=== PATIENT | female | born 1980 | race Caucasian/White ===

== ENCOUNTER 2020-11-21 13:25 | Outpatient (CLI) | payer OTHER, SELFPAY ==
[2020-11-21 14:00] LABS: Hematocrit 34.7 % (37.0-47.0); Mean Corpuscular HGB Conc 34.6 g/dl (32-36); Mean Corpuscular Volume 86.8 fl (80-100); Mean Platelet Volume 9.4 fl (7.4-10.4); Platelet Count Result 161 k/mm3 (150-375); Red Cell Distribution Width 13.8 % (11.5-14.5); White Blood Count 4.3 K/mm3 (4.5-10.0)
== END 2020-11-21 13:26 | disposition home or self-care (01) ==
PROVIDERS: PCP Obstetrics & Gynecology; Visit Provider Obstetrics & Gynecology
DX: Z13.0 Encounter for screening for diseases of the blood and blood-forming organs and certain disorders involving the immune mechanism (principal)
CPT/HCPCS: 36415; 85027

== ENCOUNTER 2020-12-19 16:34 | Inpatient (IN) | payer MEDICAID, OTHER, SELFPAY ==
--- NOTE | ~2020-12-19 | XR_ITS ---
EXAMINATION: XR retrograde pyelo w/stent RT EXAM DATE: 12/20/2020 12:43 INDICATION: Right-sided obstructive nephropathy. TECHNIQUE: Fluoroscopy used during XR retrograde pyelo w/stent RT performed by Dr. Narciso Rudolph MD. The DAP for this procedure was 774 radcm2 Cine run(s) available for review. FINDINGS: The right ureter was cannulated and injected. There is tortuosity to the mid aspect of the a right-sided double-J ureteral stent was able to be placed. There is moderate right-sided hydrouret eronephrosis. Correlate with procedure note. IMPRESSION: Moderate right hydroureteronephrosis. Stent in position. Reviewed, dictated and finalized at location B. [employer]
--- NOTE | ~2020-12-19 | CT_ITS ---
EXAMINATION: CT abdomen pelvis w con DATE: 12/19/2020 19:57 INDICATION: Fever. Post surgery. TECHNIQUE: Computed tomography (CT) of the abdomen and pelvis was performed with 100 cc Omnipaque 350 intravenous contrast. The dose-length product was 614.58 mGy-cm. Automated exposure control and iter ative reconstruction technique were employed. COMPARISON: No prior studies for comparison. . FINDINGS: There is a complex walled off fluid collection in the pelvis tracking over the bladder. Thi s fluid collection has irregular margins measuring up to 12.2 x 7.9 x 6.9 cm, consistent with abscess . There is a contiguous area of abscess along the medial aspect of the left psoas margin. The bladder wall is thickened with a urachal remnant. There is fluid/stranding in the paracolic gutters and mese ntery. Bibasilar dependent atelectasis. Heart size normal. Small pleural effusions. The liver, spleen, pancreas, adrenal glands and left kidney are unremarkable. There is moderate right hydroureteronephrosis. The right ureter disappears within phlegmonous soft tissue of the right pelvi s, likely acting as a source of obstruction. There are mildly enlarged retroperitoneal lymph nodes, l ikely reactive. No acute osseous abnormality. IMPRESSION: 1. Complex walled off fluid/gas collection centered in the pelvis measuring up to 12.2 x 7.9 x 6.9 cm , consistent with abscess. 2: Moderate right hydroureteronephrosis with abrupt termination of the ureter in the pelvis contiguou s with phlegmonous change/abscess which is the likely source of obstruction. 3: Mild retroperitoneal lymphadenopathy, likely reactive. 4: Small pleural effusions. Reviewed, dictated and finalized at location A. AUTOMATION ARCHITECT IMPRESSION: 1. Complex walled off fluid/gas collection centered in the pelvis measuring up to 12.2 x 7.9 x 6.9 cm, consistent with abscess. 2: Moderate right hydroureteronephrosis with abrupt termination of the ureter i n the pelvis contiguous with phlegmonous change/abscess which is the likely skylar rce of obstruction. 3: Mild retroperitoneal lymphadenopathy, likely reactive. 4: Small pleural effusions.
--- NOTE | ~2020-12-19 | CT_ITS ---
EXAMINATION: CT guide absc cath placement DATE: 12/20/2020 15:17 INDICATION: Pelvic abscess. TECHNIQUE: The procedure including the risks, benefits, and alternatives was discussed with the patie nt. Risks discussed included bleeding and infection. The patient understood the risks and benefits an d agreed to proceed. The skin overlying the abdomen was prepped and draped in usual sterile fashion. Anesthetic was administered with 1% lidocaine subcutaneously. An 18 gauge trochar needle was inserte d into the pelvic abscess with CT guidance. The needle was exchanged over a wire for 6 Barbadian, 8 Fren ch, and 9 Barbadian dilators and then for an 8.5 Barbadian pigtail catheter. The catheter was stitched to t he skin, and a sterile dressing was applied. The mA was adjusted according to patient size. Iterative reconstruction technique was employed. The dose-length product was 344.90 mGy-cm. There were no imme diate complications. FINDINGS: CT images demonstrate the catheter within the fluid collection. 15 mL fluid was aspirated f or testing. IMPRESSION: 1. Successful CT-guided pelvic abscess drainage. 2. 15 mL opaque, dark-brown fluid was sent for aerobic and anaerobic cultures. Reviewed, dictated and finalized at location A. [employer]
[2020-12-19 16:43] VITALS: BP 123/89; PULSE 138; RESP 19; TEMP 38.6; O2SAT 100
[2020-12-19 17:58] LABS: Basophils Absolute Auto 0.1 K/mm3 (0.0-0.1); Basophils Percent Auto 0.4 % (0.2-1.2); Eosinophils Percent Auto 0.1 % (0-4.4); Hematocrit 34.2 % (37.0-47.0); Hemoglobin 11.8 g/dL (12.0-15.0); Immature Granulocyte Absolute 0.13 K/mm3 (0.00-0.031); Lymphocytes Absolute Auto 0.92 K/mm3 (0.9-3.2); Lymphocytes Percent Auto 6.8 % (18.3-44.2); Mean Corpuscular HGB Conc 34.5 g/dl (32-36); Mean Corpuscular Hemoglobin 29.6 pg (26-34); Mean Corpuscular Volume 85.7 fl (80-100); Mean Platelet Volume 9.6 fl (7.4-10.4); Monocytes Absolute Auto 0.6 K/mm3 (0.1-0.6); Monocytes Percent Auto 4.6 % (2.6-8.5); Neutrophils Absolute Auto 11.8 K/mm3 (1.3-6.7); Neutrophils Percent Auto 87.1 % (45.5-73.1); Platelet Count Result 251 k/mm3 (150-375); Red Blood Count 3.99 M/mm3 (4.2-5.4); Red Cell Distribution Width 12.9 % (11.5-14.5); White Blood Count 13.5 K/mm3 (4.5-10.0)
[2020-12-19 18:12] LABS: Alanine Aminotransferase 9 U/L (4-35); Albumin Level 3.6 g/dL (3.5-5.1); Alkaline Phosphatase 93 U/L (38-126); Anion Gap 6 mmol/L (8-16); Aspartate Amino Transferase 16 U/L (14-36); Bilirubin,Total 0.4 mg/dL (0.2-1.3); Blood Urea Nitrogen 6 mg/dL (7-17); Calcium 8.6 mg/dL (8.4-10.2); Carbon Dioxide 28 mmol/L (22-30); Chloride 98 mmol/L (98-107); Estimated CRCL calculation 104 ml/min; Estimated Glomerular Filt Rate > 60; Glucose 118 mg/dL (65-105); Potassium 3.5 mmol/L (3.4-5.0); Sodium 132 mmol/L (137-145)
--- NOTE | 2020-12-19 18:41 | ED.FEVER ---
HPI - Fever General Chief Complaint: Fever <Abimael Ha PA-C - Last Filed: 12/27/20 19:34> Stated Complaint: hysterectomy Dec 11, fever, pain <Abimael Ha PA-C - Last Filed: 12/27/20 19:34> Time Seen by Provider: 12/19/20 16:58 <KENDELL Escobar Last Filed: 12/27/20 19:34> Source: patient <KENDELL Escobar Last Filed: 12/27/20 19:34> Mode of arrival: ambulatory <KENDELL Escobar Last Filed: 12/27/20 19:34> Limitations: no limitations <KENDELL Escobar Last Filed: 12/27/20 19:34> History of Present Illness HPI Narrative: Patient presents with chief complaint of pain, increased fever and discomfort that has continued to increase since having a partial hysterectomy on December 11. Patient states that the procedure was performed by Dr. Doan [facility] at [facility]. Patient states that the uterus was removed and the ovaries were left in place. Patient reports feeling a pressure-like sensation in her lower abdomen and vaginal area. She states that she felt as if she was constipated so she called the BUTTON PUNCHER's office and was instructed to use a fleets enema which resulted in a very small amount of loose stool passing. Patient states throughout the night she noticed more pressure-like pain and in the night she felt a flush of foul-smelling pink and brown-tinged fluid released from her vagina. She states she called the [facility]TON P[facility] office this morning and was prescribed metronidazole and Augmentin. She states that she said they also want her to come into the office tomorrow for outpatient ultrasound after informing them of her increased fevers and discomfort she was instructed to present to the emergency department. Patient states that she had low-grade fevers of 100 after leaving the hospital but since they have continued to increase and have been as high as 102 ?F. She denies fever, chills, chest pain, shortness of breath, nausea or vomiting. <KENDELL Escobar Last Filed: 12/27/20 19:34> Related Data Home Medications: Home Medications Medication Instructions Recorded Confirmed oxycodone-acetaminophen 1 tablet PO Q6-8H PRN 12/19/20 12/19/20 <Abimael Ha PA-C - Last Filed: 12/27/20 19:34> Allergies/Adverse Reactions: Allergies Allergy/AdvReac Type Severity Reaction Status Date / Time No Known Allergies Allergy Verified 12/19/20 22:38 <Abimael Ha PA-C - Last Filed: 12/27/20 19:34> Review of Systems Review of Systems: Narrative: CONSTITUTIONAL: Reports fever and sweats EYES: Denies visual changes, redness, or discharge. ENT: Denies rhinorrhea, congestion, sore throat, or otalgia. CARDIOVASCULAR: Denies chest pain, palpitations, or edema. RESPIRATORY: Denies cough or dyspnea. GASTROINTESTINAL: Reports abdominal pressure and constipation denies nausea, vomiting, or diarrhea. GENITOURINARY: Reports pelvic pressure and fluid release denies dysuria or hematuria. SKIN: Denies rash or itching. MUSCULOSKELETAL: Denies back pain, joint pain, or myalgia. NEUROLOGIC: Denies headache, numbness, dizziness, or weakness. PSYCHIATRIC: Denies anxiety or depression. <Abimael Ha PA-C - Last Filed: 12/27/20 19:34> [facility] Past Medical History Medical History: Medical History Severe sepsis <Abimael Ha PA-C - Last Filed: 12/27/20 19:34> Surgical History Surgical History: Surgical History Status post hysterectomy <Abimael Ha PA-C - Last Filed: 12/27/20 19:34> Family History Family History: Family History Father Diabetes mellitus Congestive heart failure Mother Hypertension <Abimael Ha PA-C - Last Filed: 12/27/20 19:34> Social History Social History: Social History
[2020-12-19 19:27] VITALS: BP 89/63; PULSE 87; RESP 18; TEMP 37.2; O2SAT 99
[2020-12-19] MEDS: SODIUM CHLORIDE 0.9% IV 1,000 ML 999 ML IV CONT ×2 (19:43)
[2020-12-19] MEDS: metroNIDAZOLE 500 MG/ISO 100ML 500 MG/100 ML BAG 100 MG IVPB (19:46)
[2020-12-19 20:38] VITALS: BP 100/72; PULSE 91; RESP 14; O2SAT 100
[2020-12-19] MEDS: CLINDAMYCIN 900 MG/D5W 50 ML 900 MG/50 ML PIGGYBACK 50 MG IVPB (20:39)
[2020-12-19] MEDS: SODIUM CHLORIDE 0.9% IV 500 ML 999 ML IV CONT (20:47)
[2020-12-19 21:37] VITALS: BP 95/71; PULSE 90; RESP 14; O2SAT 100
--- NOTE | 2020-12-19 22:11 | PM.IMCN ---
Assessment and Plan Assessment and plan (1) Severe sepsis: Code(s): A41.9 - Sepsis, unspecified organism; R65.20 - Severe sepsis without septic shock Status: Acute Assessment and Plan: The patient has been admitted to the ELECTRONIC COURT RECORDER service. Source of sepsis appears to be post op pelvic abscess. Continue to monitor vital signs and urine output closely. Check reflex lactic acid. Continue IV antibiotics. Monitor acid-base status. Continue ELECTRONIC COURT RECORDER recommendations for pelvic abscess. (2) Pelvic abscess in female: Code(s): N73.9 - Female pelvic inflammatory disease, unspecified Status: Acute Assessment and Plan: Post op pelvic abscess. Continue IV antibiotics, IV fluids. Would highly recommend draining the patient's abscess as soon as possible for source control of sepsis. (3) S/P partial hysterectomy: Code(s): Z90.711 - Acquired absence of uterus with remaining cervical stump Status: Acute Assessment and Plan: Continue ELECTRONIC COURT RECORDER recommendations. (4) Hydroureteronephrosis: Code(s): N13.30 - Unspecified hydronephrosis Status: Acute Assessment and Plan: Would recommend Urology consultation. Monitor urine output and renal function. (5) Leukocytosis: Qualifiers: Leukocytosis type: unspecified Qualified Code(s): D72.829 - Elevated white blood cell count, unspecified Code(s): D72.829 - Elevated white blood cell count, unspecified Status: Acute Assessment and Plan: Secondary to severe sepsis and pelvic abscess. Monitor CBCd. Additional Plan Date of service was 12/19/2020 at 21:45 hrs HPI Data of Consult Consult date: 12/20/20 Requesting Physician: Richy Doan MD Primary Care Provider: Richy Doan MD Consult Narrative Narrative: Thank you for consulting us to see this 40 year old female who just underwent a partial hysterectomy on 12/11/2020 at [facility] by Dr. Doan and now presented to the ER with complaints of severe RLQ abdominal pain, fever, and diaphoresis. 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 She reports having constipation today and passing a foul smelling pink/brown tinged vaginal discharge. Her Tmax was 102 degrees F. She was evaluated in the ER tonight and found to be in severe sepsis. She was treated with 3 liters of NS IV bolus, Clindamycin, Ceftriaxone, and Metronidazole. Routine labs showed a leukocytosis of 13,[address] abd/pelvis revealed a complex walled off fluid/gas collection centered in the pelvis measuring up to 12.2 x 7.9 x 6.9 cm, consistent with abscess as well as a moderate right hydroureteronephrosis with abrupt termination of the ureter in the pelvis contiguous with phlegmonous change/abscess which is the likely source of obstruction. On my encounter with the patient tonight her main complaint is RLQ abdominal tenderness. The patient denies any chest pain, shortness of breath, cough, dysuria, rectal bleeding, LE swelling, or focal neurological deficits. Review of Systems Review of Systems: All systems reviewed & are unremarkable except as noted in HPI and below PMFSH Surgical History Surgical History S/P partial hysterectomy Family History Family History Father Diabetes mellitus Congestive heart failure Mother Hypertension Social History Social History Smoking status: Never smoker Second hand tobacco smoke exposure: No Alcohol intake: current Substance use: never Substance use type: does not use and opiates Other substance usage details: post op pain meds Gender identity (if verbalized by the patient): Female Spiritual care concerns: No Comments Past medical history is negative. Meds Home Medications and Allergies Home Medications Medication Instructions
[2020-12-19 22:36] VITALS: BP 104/74; PULSE 94; RESP 20; TEMP 36.4; O2SAT 100; BMI 30.9
[2020-12-19] MEDS: SODIUM CHLORIDE 0.9% IV 1,000 ML 125 ML IV CONT (22:36)
[2020-12-19 23:52] LABS: Add Urine Microscopic? YES; Appearance Urine Clear (Clear); Bilirubin Urine Negative (Negative); Blood Urine 2+ (Negative); Color Urine Straw (Yellow); Glucose Urine UA Negative (Negative); Ketones Urine Trace mg/dL (Negative); Leukocyte Esterase Ur 1+ LEU/UL (Negative); Nitrate Urine Negative (Negative); Protein Urine Negative (Negative); RBC Urine 0-2 /hpf (0-2); Squamous Epithelial Cell Urine Moderate /hpf (Few); Urobilinogen Urine Negative mg/dL (<2.0); WBC Urine 16-20 /hpf
[2020-12-19 23:54] LABS: Specific Grav Ur 1.034 (1.001-1.035)
[2020-12-20] VITALS (25 sets, daily range): BP systolic 98–139; BP diastolic 62–87; PULSE 88–116; RESP 12–22; TEMP 36.6–38.9; O2SAT 95–100
[2020-12-20] MEDS: metroNIDAZOLE 500 MG/ISO 100ML 500 MG/100 ML BAG 100 MG IVPB ×5 (00:01→23:30)
[2020-12-20] MEDS: ONDANSETRON INJ 4 MG/2 ML VIAL IV PUSH (00:17)
[2020-12-20] MEDS: HYDROmorphone HCL INJ (*CRX) 1 MG/ML SYR IV PUSH ×6 (01:45→20:08)
[2020-12-20] MEDS: CLINDAMYCIN 900 MG/D5W 50 ML 900 MG/50 ML PIGGYBACK 50 MG IVPB ×3 (04:37→20:08)
[2020-12-20] MEDS: SODIUM CHLORIDE 0.9% IV 1,000 ML 125 ML IV CONT ×3 (04:37→23:30)
--- NOTE | 2020-12-20 09:40 | WPDURCON ---
Assessment and Plan Assessment and plan (1) Hydroureteronephrosis: Code(s): N13.30 - Unspecified hydronephrosis Status: Acute Assessment and Plan: After discussion with Dr. Doan, Dr. Kingsley and Dr. Rudolph, the plan will be for the patient to have a Cystoscopy right ureteroscopy with stent placement, right retrograde pyelogram with Dr. Rudolph, then she will go to IR for pelvic abscess drainage and possible right nephrostomy tube placement if Dr. Rudolph is unable to get a stent in place. Obtain consent. Keep NPO. Continue IV antibiotics, tailor to culture results. (2) Pelvic abscess in female: Code(s): N73.9 - Female pelvic inflammatory disease, unspecified Status: Acute Urology Consult Note HPI Date Seen: 12/20/20 Requesting Physician: Richy Doan MD Primary Care Provider: Richy Doan MD Consult Narrative Narrative: Leslie Pope is a 40 year old female who presented to the ER yesterday with worsening abdominal pain, vomiting, nausea, fever >100, and vaginal malodorous drainage s/p a partial hysterectomy on 12/11/[address] Doan at [facility]. She notes feeling the urge to urinate and pressure, but not being able to very well. Her stream is weak, but she denies dysuria or hematuria. She had a catheter placed which is draining clear, yellow urine. She denies a urologic history otherwise. Initially she thought she was constipated, and used an enema which resulted in a small amount of stool after a BM. She is tachycardic, febrile, WBC is 13.5, creatinine 0.70, UA is suggestive of a UTI, urine and blood cultures are pending. CT scan abdomen/pelvis shows complex walled off fluid/gas collection centered in the pelvis, consistent with abscess, as well as moderate Right Hydronephrosis with abrupt termination of the ureter in the pelvis contiguous with phlegmonous change, possible abscess is the source of obstruction. Review of Systems Cardiovascular: Cardiovascular: Denies chest pain Respiratory: Respiratory: Reports no additional respiratory complaints Gastrointestinal: Gastrointestinal: Reports abdominal pain, Reports constipation, Reports nausea and Reports vomiting Genitourinary: Genitourinary: Denies hematuria, Reports nocturia, Denies dysuria, Reports pelvic pain, Reports flank pain, Reports urinary urgency, Reports vaginal discharge and Reports vaginal odor PMFSH Surgical History Surgical History S/P partial hysterectomy Family History Family History Father Diabetes mellitus Congestive heart failure Mother Hypertension Social History Social History Smoking status: Never smoker Second hand tobacco smoke exposure: No Alcohol intake: current Substance use: never Substance use type: does not use and opiates Other substance usage details: post op pain meds Gender identity (if verbalized by the patient): Female Spiritual care concerns: No Meds Home Medications and Allergies Home Medications Medication Instructions Recorded Confirmed Type amoxicillin-pot clavulanate 875 mg PO Q12-24H 12/19/20 12/19/20 History ibuprofen 600 mg PO Q8-12H 12/19/20 12/19/20 History metronidazole 500 mg PO BID 12/19/20 12/19/20 History oxycodone-acetaminophen 1 tablet PO Q6-8H PRN 12/19/20 12/19/20 History Allergies Allergy/AdvReac Type Severity Reaction Status Date / Time No Known Allergies Allergy Verified 12/19/20 22:38 Vital Signs Vital Signs - 24 hr 12/19/20 16:43 12/19/20 19:27 12/19/20 20:38 Temperature 101.4 F H 98.9 F Pulse Rate 138 H 87 91 Respiratory Rate 19 18 14 Blood Pressure 123/89 89/63 L 100/72 Pulse Oximetry 100 99 100 12/19/20 21:37 12/19/20 22:36 12/20/20 00:00 Temperature 97.6 F 98.3 F Pulse Rate 90 94 100 Respiratory Rate 14 20
[2020-12-20 10:07] LABS: INR 1.1; Prothrombin Time 15.2 Seconds (11.1-14.7)
--- NOTE | 2020-12-20 11:05 | PC.NURSE ---
To OR per stretcher. Report given to RICHARD Lemus @ 1100. Flagyl sent with patient to OR
[2020-12-20] MEDS: LACTATED RINGERS 1,000 ML 30 ML IV CONT ×3 (11:20→13:52)
--- NOTE | 2020-12-20 11:24 | PM.IMPN ---
Progress Note: A&P Assessment and Plan (1) Severe sepsis: Code(s): A41.9 - Sepsis, unspecified organism; R65.20 - Severe sepsis without septic shock Status: Acute Assessment and Plan: Secondary to abscess -plan for CT-guided drain today -continue clindamycin and Flagyl -await microbiology -lactic acid normal on admission -white blood cell count 13.5 and patient is still running fevers at this time -sinus tachycardia on telemetry, continue to monitor (2) Pelvic abscess in female: Code(s): N73.9 - Female pelvic inflammatory disease, unspecified Status: Acute Assessment and Plan: Post op pelvic abscess -continue treatment as above -deicer element winder machine consulted and I spoke with him directly (3) Hydroureteronephrosis: Code(s): N13.30 - Unspecified hydronephrosis Status: Acute Assessment and Plan: Due to pelvic abscess. Plan for cystoscopy and right ureteroscopy and stent placement today -on IV antibiotics as stated above (4) Leukocytosis: Qualifiers: Leukocytosis type: unspecified Qualified Code(s): D72.829 - Elevated white blood cell count, unspecified Code(s): D72.829 - Elevated white blood cell count, unspecified Status: Acute Assessment and Plan: Secondary to above (5) Status post hysterectomy: Code(s): Z90.710 - Acquired absence of both cervix and uterus Status: Acute Assessment and Plan: Patient had her surgery last and follows with (6) Thrombosis of ovarian vein: Code(s): I82.890 - Acute embolism and thrombosis of other specified veins Status: Acute Assessment and Plan: I spoke with the radiologist and deicer element winder machine about this finding -patient has no history of clotting disorder -will start heparin after both procedures today after speaking with Urology and radiologist -will need to go home on Eliquis or Xarelto, will be in contact with care coordination about pricing Time Spent With Patient Time with patient: 25 - 35 minutes Subjective Date/time seen: 12/20/20 11:24 Interval history: Pt is a 40-year-old female here for abdominal pain found to have a pelvic abscess and bilateral ovarian vein clots. Patient was seen today and states her abdominal pain comes and goes but the pain medicine does help. She has some nausea but no vomiting. She has not eaten. She has not had a bowel movement or passed much gas. She still feels bloated and tender. No chest pain, shortness of breath or leg swelling. We discussed the plan of care and her new diagnosis of ovarian vein clots. She has never had a blood clot before. Review of Systems Review of Systems: All systems reviewed & are unremarkable except as noted in HPI and below Exam Narrative: Exam Narrative: General: Well developed well nourished patient in NAD HEENT: normocephalic Neck: supple Neuro: Alert and oriented x4 CV: Slightly tachycardic on exam, no murmurs. Telemetry shows sinus tachycardia 102 Resp:CTA Abd: Soft, partially distended. Pain to palpation in all areas. Surgical wounds without erythema, discharge or dehiscence. Positive bowel sounds Extremities: No swelling, erythema, or pain to palpation. Objective Data Vital Signs Vital Signs: Vital Signs - 24 hr 12/19/20 16:43 12/19/20 19:27 12/19/20 20:38 Temperature 101.4 F H 98.9 F Pulse Rate 138 H 87 91 Respiratory Rate 19 18 14 Blood Pressure 123/89 89/63 L 100/72 Pulse Oximetry 100 99 100 12/19/20 21:37 12/19/20 22:36 12/20/20 00:00 Temperature 97.6 F 98.3 F Pulse Rate 90 94 100 Respiratory Rate 14 20 18 Blood Pressure 95/71 L 104/74 122/76 Pulse Oximetry 100 100 99 12/20/20 02:00 12/20/20 02:26 12/20/20 04:00 Temperature Pulse Rate 113 H 94 Respiratory Rate Blood Pressure 103/65 Pulse Oximetry 12/20/20 04:30 12/20/20 05:39 12/20/20 06:00 Temperature 98.2 F Pulse Rate 99 108 H Respiratory
--- NOTE | 2020-12-20 11:38 | WPDANESEPPF ---
Anes - Initial Pre Proc Eval Procedure: Operation Date: 12/20/20 11:00 Proposed Procedures p Cystoscopy, Right Retrograde Pyelogram, Right Stent Placement(Right) - Narciso Rudolph MD Date/Time: 12/20/20 11:38 Surgeon: Richy Doan MD Pre Op Diagnosis: vaginal abscess post surgical complication Patient Data Age: 40 Gender: F Height: 5 ft 7 in Weight: 88.8 kg Last Vital Signs Temp 100.8 F H 12/20/20 07:58 Pulse 115 H 12/20/20 11:09 Resp 18 12/20/20 07:58 BP 125/86 12/20/20 10:43 Pulse Ox 99 12/20/20 07:58 Allergies Allergy/AdvReac Type Severity Reaction Status Date / Time No Known Allergies Allergy Verified 12/19/20 22:38 Home Medications Medication Instructions Recorded Confirmed Type amoxicillin-pot clavulanate 875 mg PO Q12-24H 12/19/20 12/19/20 History ibuprofen 600 mg PO Q8-12H 12/19/20 12/19/20 History metronidazole 500 mg PO BID 12/19/20 12/19/20 History oxycodone-acetaminophen 1 tablet PO Q6-8H PRN 12/19/20 12/19/20 History Laboratory Tests 12/19/20 12/19/20 12/19/20 17:49 17:49 17:49 WBC 13.5 K/mm3 H K/mm3 (4.5-10.0) RBC 3.99 M/mm3 L M/mm3 (4.2-5.4) Hgb 11.8 g/dL L g/dL (12.0-15.0) Hct 34.2 % L % (37.0-47.0) MCV 85.7 fl fl (80-100) MCH 29.6 pg pg (26-34) MCHC 34.5 g/dl g/dl (32-36) RDW 12.9 % % (11.5-14.5) Plt Count 251 k/mm3 D k/mm3 (150-375) MPV 9.6 fl fl (7.4-10.4) Immature Gran % (Auto) 1.0 % H % (0-0.5) Neut % (Auto) 87.1 % H % (45.5-73.1) Lymph % (Auto) 6.8 % L % (18.3-44.2) [place] % (Auto) 4.6 % % (2.6-8.5) Eos % (Auto) 0.1 % % (0-4.4) Baso % (Auto) 0.4 % % (0.2-1.2) Lymph # (Auto) 0.92 K/mm3 K/mm3 (0.9-3.2) [place] # (Auto) 0.6 K/mm3 K/mm3 (0.1-0.6) Eos # (Auto) 0.0 K/mm3 K/mm3 (0-0.3) Baso # (Auto) 0.1 K/mm3 K/mm3 (0.0-0.1) Abs Immat Gran (auto) 0.13 K/mm3 H K/mm3 (0.00-0.031) Absolute Neuts (auto) 11.8 K/mm3 H K/mm3 (1.3-6.7) Absolute Nucleated RBC 0.0 K/mm3 K/mm3 (0.0-0.012) Nucleated RBC % 0.0 % % (0.0-0.2) PT INR APTT Sodium 132 mmol/L L mmol/L (137-145) Potassium 3.5 mmol/L mmol/L (3.4-5.0) Chloride 98 mmol/L mmol/L (98-107) Carbon Dioxide 28 mmol/L mmol/L (22-30) Anion Gap 6 mmol/L L mmol/L (8-16) BUN 6 mg/dL L mg/dL (7-17) Creatinine 0.70 mg/dL mg/dL (0.7-1.0) Estim Creat Clear Calc 104 ml/min ml/min Estimated GFR > 60 (59 - ) Glucose 118 mg/dL H mg/dL (65-105) Lactic Acid 1.0 mmol/L mmol/L (0.7-2.1) Calcium 8.6 mg/dL mg/dL (8.4-10.2) Total Bilirubin 0.4 mg/dL mg/dL (0.2-1.3) AST 16 U/L U/L (14-36) ALT 9 U/L U/L (4-35) Alkaline Phosphatase 93 U/L U/L (38-126) Total Protein 7.0 g/dL g/dL (6.3-8.2) Albumin 3.6 g/dL g/dL (3.5-5.1) Urine Color Urine Appearance Urine pH Ur Specific [place] Urine Protein Urine Glucose (UA) Urine Ketones Ur Blood (Man) Urine Nitrate Urine Bilirubin Urine Urobilinogen Leukocyte Esterase Rfl Urine RBC Urine WBC Ur Squamous Epith Cells Blood Type Antibody Screen 12/19/20 12/19/20 12/20/20 20:06 23:31 09:47 WBC RBC Hgb Hct MCV MCH MCHC RDW Plt Count MPV Immature Gran % (Auto) Neut % (Auto) Lymph % (Auto) [place] % (Auto)
--- NOTE | 2020-12-20 12:10 | WPDHPUPDATE1 ---
History and Physical Update Update Date/Time: 12/20/20 12:10 History and Physical has been reviewed, including an updated exam of the patient. There are NO changes in the patient's condition. Risks, benefits, and alternatives have been discussed and questions answered. Patient agrees to proceed with procedure.
--- NOTE | 2020-12-20 12:18 | PM.IMHP ---
H&P: HPI History of Present Illness Date/Time: 12/20/20 12:18 Chief Complaint: Abdominal pain 5 days status post laparoscopic hysterectomy. Narrative: Leslie Pope is a 40 year old female 003 presents after having had laparoscopic hysterectomy 5 days prior to admission. Procedures of was uncomplicated and patient was discharged home the following day (Friday) with no significant abnormalities noted. She did reasonably well until Friday when she began to feel bloated and unable to have bowel movement. Did use stool softeners and enema which did help her to have a bowel movement but did not give her any relief of her pelvic pressure and discomfort. She then called the office Friday with these complaints of no bowel movement and feeling pressure and fullness at which point we were starting on antibiotics and we are going to order a pelvic ultrasound. Prior to having this performed she began to feel sicker and vaginal drainage that was foul smelling and call the office with this complaint. At this point she was instructed for for proceed to the emergency room as of these findings were suspicious for her having a postoperative abscess. She denies any specific urinary complaints. She has had no significant bleeding though she has had a foul-smelling serosanguineous discharge vaginally over the last 24 hours. Also from a gastrointestinal perspective she has passed gas and did have a bowel movement with the above as well as the fact that she is having now some nausea but has not been having any specific issues with nausea and vomiting. Review of Systems Review of Systems: All systems reviewed & are unremarkable except as noted in HPI and below PMFSH Past Medical History Medical History Severe sepsis Surgical History Surgical History Status post hysterectomy Family History Family History Father Diabetes mellitus Congestive heart failure Mother Hypertension Social History Social History Smoking status: Never smoker Second hand tobacco smoke exposure: No Alcohol intake: current Substance use: never Substance use type: does not use and opiates Other substance usage details: post op pain meds Gender identity (if verbalized by the patient): Female Spiritual care concerns: No Meds Home Medications and Allergies Home Medications Medication Instructions Recorded Confirmed Type amoxicillin-pot clavulanate 875 mg PO Q12-24H 12/19/20 12/19/20 History ibuprofen 600 mg PO Q8-12H 12/19/20 12/19/20 History metronidazole 500 mg PO BID 12/19/20 12/19/20 History oxycodone-acetaminophen 1 tablet PO Q6-8H PRN 12/19/20 12/19/20 History Allergies Allergy/AdvReac Type Severity Reaction Status Date / Time No Known Allergies Allergy Verified 12/19/20 22:38 Vital Signs Vital Signs - 24 hr 12/19/20 16:43 12/19/20 19:27 12/19/20 20:38 Temperature 38.6 C H 37.2 C Pulse Rate 138 H 87 91 Respiratory Rate 19 18 14 Blood Pressure 123/89 89/63 L 100/72 Pulse Oximetry 100 99 100 12/19/20 21:37 12/19/20 22:36 12/20/20 00:00 Temperature 36.4 C 36.8 C Pulse Rate 90 94 100 Respiratory Rate 14 20 18 Blood Pressure 95/71 L 104/74 122/76 Pulse Oximetry 100 100 99 12/20/20 02:00 12/20/20 02:26 12/20/20 04:00 Temperature Pulse Rate 113 H 94 Respiratory Rate Blood Pressure 103/65 Pulse Oximetry 12/20/20 04:30 12/20/20 05:39 12/20/20 06:00 Temperature 36.8 C Pulse Rate 99 108 H Respiratory Rate 22 H Blood Pressure 101/75 116/75 Pulse Oximetry 100 12/20/20 07:58 12/20/20 08:00 12/20/20 10:00 Temperature 38.2 C H Pulse Rate 111 H 108 H 103 H Respiratory Rate 18 Blood Pressure 111/78 Pulse Oximetry 99 12/20/20 10:43 12/20/20 11:09 Temperat
[2020-12-20] MEDS: LIDOCAINE HCL 2% GEL UROJET 10 ML PKG MUCOUS MEM (12:40)
--- NOTE | 2020-12-20 13:00 | PM.PROC ---
Procedure Note - Detailed Date of procedure: 12/20/20 Pre-op diagnosis: vaginal abscess post surgical complication Right hydronephrosis Post-op diagnosis: other Procedure performed: Cystoscopy, right retrograde pyelogram, right ureteral stent insertion Description of procedure: Informed consent was obtained. Patient taken the operating. She was given preoperative IV antibiotics on the floor. Induced with anesthesia she was prepped with normal sterile fashion. Inserted a 20 F cystoscope through the urethra and bladder. We inspected bladder with a 30degree and 70degree lens. 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 There was a solitary right ureteral orifice. There were no other mucosal abnormalities. I cannulated the right ureteral orifice and a retrograde pyelogram showed a delicate distal ureter with subsequent mid ureteral dilation and severe hydroureteronephrosis down to this level. I then advanced a wire, there was J hooking of the ureter and therefore we switched to a angled Glidewire and were able to advance this wire. The wire then was advanced to the renal pelvis and a 6 F variable length stent was placed with a curl in renal pelvis and curl in the bladder. A Rodriguez catheter was then inserted. Dr. Doan then performed a vaginal exam. Anesthesia: GLMA Surgeon: Narciso Rudolph MD Packing: No Pathology: none sent Complications: No immediate complications Condition: stable Disposition: PACU
--- NOTE | 2020-12-20 14:03 | SUR.PHASEI ---
called report to pt nurse in room 202, took pt to ir, pt had fluids going and 2l of O2 on nasal canula, pt on IMU monitor.
--- NOTE | 2020-12-20 15:16 | PC.NURSE ---
Returned from CT via stretcher. Report received from RICHARD Hector @[id number] from PACU. Pt had went from PACU to CT for drain placement.
[2020-12-20] MEDS: HEPARIN SOD/D5W 100 UNITS/ML 25,000 UNITS/250 ML BAG 13 UNITS IV CONT (18:06)
[2020-12-20] MEDS: HYDROcodone/acetaminophen (*CRX) 10-325 MG TABLET 1 TAB PO (23:30)
[2020-12-21] VITALS (8 sets, daily range): BP systolic 114–134; BP diastolic 68–81; PULSE 83–97; RESP 12–20; TEMP 36.8–37.7; O2SAT 94–96
[2020-12-21 01:08] LABS: Partial Thromboplastin Time 60.7 SECONDS (22.3-36.8)
[2020-12-21] MEDS: HEPARIN SODIUM 5,000 UNITS/ML VIAL 3000 UNITS IV PUSH (01:58)
[2020-12-21] MEDS: CLINDAMYCIN 900 MG/D5W 50 ML 900 MG/50 ML PIGGYBACK 50 MG IVPB ×3 (06:11→22:45)
[2020-12-21] MEDS: metroNIDAZOLE 500 MG/ISO 100ML 500 MG/100 ML BAG 100 MG IVPB ×4 (06:11→23:36)
[2020-12-21] MEDS: HYDROcodone/acetaminophen (*CRX) 10-325 MG TABLET 1 TAB PO ×2 (06:11→12:13)
[2020-12-21 06:14] LABS: Basophils Percent Auto 0.5 % (0.2-1.2); Eosinophils Percent Auto 0.3 % (0-4.4); Hematocrit 29.2 % (37.0-47.0); Hemoglobin 9.4 g/dL (12.0-15.0); Immature Granulocyte Absolute 0.03 K/mm3 (0.00-0.031); Immature Granulocyte Percent A 0.4 % (0-0.5); Lymphocytes Absolute Auto 1.05 K/mm3 (0.9-3.2); Lymphocytes Percent Auto 13.3 % (18.3-44.2); Mean Corpuscular HGB Conc 32.2 g/dl (32-36); Mean Corpuscular Hemoglobin 28.8 pg (26-34); Mean Corpuscular Volume 89.6 fl (80-100); Mean Platelet Volume 9.4 fl (7.4-10.4); Monocytes Absolute Auto 0.7 K/mm3 (0.1-0.6); Monocytes Percent Auto 8.2 % (2.6-8.5); Neutrophils Absolute Auto 6.1 K/mm3 (1.3-6.7); Neutrophils Percent Auto 77.3 % (45.5-73.1); Platelet Count Result 195 k/mm3 (150-375); Red Blood Count 3.26 M/mm3 (4.2-5.4); Red Cell Distribution Width 13.1 % (11.5-14.5); White Blood Count 7.9 K/mm3 (4.5-10.0)
--- NOTE | 2020-12-21 06:15 | PC.NURSE ---
When we went to empty her whitehead this morning her urine was a deep brown the same color as the drain with no odor I called and notified both Dr. Marinelli and Dr. Sue office of the changes and put in Labs and a urine culture. Though out my shift it was normal clear yellow the change has just happened.
[2020-12-21 06:26] LABS: Anion Gap 6 mmol/L (8-16); Blood Urea Nitrogen 7 mg/dL (7-17); Calcium 7.3 mg/dL (8.4-10.2); Carbon Dioxide 25 mmol/L (22-30); Chloride 101 mmol/L (98-107); Estimated CRCL calculation 127 ml/min; Estimated Glomerular Filt Rate > 60; Glucose 109 mg/dL (65-105); Sodium 132 mmol/L (137-145)
[2020-12-21 07:47] LABS: Alanine Aminotransferase 7 U/L (4-35); Albumin Level 2.7 g/dL (3.5-5.1); Alkaline Phosphatase 72 U/L (38-126); Anion Gap 7 mmol/L (8-16); Aspartate Amino Transferase 16 U/L (14-36); Bilirubin,Total 0.2 mg/dL (0.2-1.3); Blood Urea Nitrogen 7 mg/dL (7-17); Calcium 7.5 mg/dL (8.4-10.2); Carbon Dioxide 24 mmol/L (22-30); Chloride 104 mmol/L (98-107); Estimated CRCL calculation 127 ml/min; Estimated Glomerular Filt Rate > 60; Glucose 110 mg/dL (65-105); Sodium 135 mmol/L (137-145)
[2020-12-21] MEDS: SODIUM CHLORIDE 0.9% IV 1,000 ML 125 ML IV CONT ×2 (08:03→20:26)
[2020-12-21] MEDS: POTASSIUM CHLORIDE 20 MEQ TABLET 40 MEQ PO (08:04)
[2020-12-21 09:36] LABS: CRP 30.7 mg/dL (<1.0)
[2020-12-21] MEDS: HEPARIN SOD/D5W 100 UNITS/ML 25,000 UNITS/250 ML BAG 14 UNITS IV CONT (10:03)
--- NOTE | 2020-12-21 10:49 | PM.IMPN ---
Progress Note: A&P Assessment and Plan (1) Severe sepsis: Code(s): A41.9 - Sepsis, unspecified organism; R65.20 - Severe sepsis without septic shock Status: Inactive Assessment and Plan: Secondary to abscess -await Gram stain and culture from the drain -continue clindamycin and Flagyl -lactic acid normal on admission -white blood cell count 13.5 improved and is normal today and she is no longer having fevers -sinus tachycardia has resolved -okay to move to medical floor (2) Pelvic abscess in female: Code(s): N73.9 - Female pelvic inflammatory disease, unspecified Status: Acute Assessment and Plan: Post op pelvic abscess -continue treatment as above -human resources operations director consulted and I spoke with him directly (3) Hydroureteronephrosis: Code(s): N13.30 - Unspecified hydronephrosis Status: Acute Assessment and Plan: Due to pelvic abscess. -stent placed yesterday -patient has some red urine today likely due to the procedure, stent, and systemic anticoagulation -no signs of debris from the abscess, fistula seems less likely at this time -spoke with Urology (4) Leukocytosis: Qualifiers: Leukocytosis type: unspecified Qualified Code(s): D72.829 - Elevated white blood cell count, unspecified Code(s): D72.829 - Elevated white blood cell count, unspecified Status: Acute Assessment and Plan: Resolved (5) Status post hysterectomy: Code(s): Z90.710 - Acquired absence of both cervix and uterus Status: Acute Assessment and Plan: Patient had her surgery last and follows with (6) Thrombosis of ovarian vein: Code(s): I82.890 - Acute embolism and thrombosis of other specified veins Status: Acute Assessment and Plan: I spoke with the radiologist and human resources operations director about this finding -patient has no history of clotting disorder -continue heparin at this time and monitor hemoglobin and hematocrit. -will continue on heparin since she has hematuria right now. If this gets worse, this may need to be stopped -will need to go home eventually on oral anticoagulation. Will ask care coordination to gi Fajardo (7) Electrolyte abnormality: Code(s): E87.8 - Other disorders of electrolyte and fluid balance, not elsewhere classified Status: Acute Assessment and Plan: Patient has hypokalemia and hyponatremia -likely due to pain and decreased appetite/diet -will replace potassium today and increased diet -if she is unable to tolerate a regular diet and continues to have electrolyte abnormalities, may consider TPN although I do not think this will be necessary Subjective Date/time seen: 12/21/20 10:49 Interval history: Pt is a 40-year-old female here for abdominal pain found to have a pelvic abscess and bilateral ovarian vein clots. Patient was seen today and states she is not in much pain which is an improvement from when she was admitted. She states she tried clear liquids yesterday and today and had some uneasiness with that but no nausea or vomiting. She has been having gas but no BM so far. She said her urine became dark with some blood in it after the procedure yesterday. She denies chest pain, shortness of breath, fevers, chills or leg swelling. Exam Narrative: Exam Narrative: General: Well developed well nourished patient in NAD HEENT: normocephalic Neck: supple Neuro: Alert and oriented x4 CV: Regular rate and rhythm Resp:CTA Abd: Soft, partially distended. Pain to palpation in all areas. Surgical wounds without erythema, discharge or dehiscence. Positive bowel sounds Extremities: No swelling, erythema, or pain to palpation. Rodriguez catheter with dark red urine, no mucus or debris on my exam Objective Data Vital Signs Vital Signs: Vital Signs - 24 hr 12/20/20 11:09 12/20/20 12:52 12/20/20 13:00 Temperature 99.6 F Pulse Rate 115 H 116 H 109
[2020-12-21 11:47] LABS: Hematocrit 34.8 % (37.0-47.0); Hemoglobin 10.9 g/dL (12.0-15.0)
--- NOTE | 2020-12-21 12:09 | WPDUROPN2 ---
Progress Note: A&P Assessment and Plan (1) Hydroureteronephrosis: Code(s): N13.30 - Unspecified hydronephrosis Status: Acute Assessment and Plan: Resolving s/p stent placement right ureter. Flank pain has resolved. Will plant to keep stent in for one month and get an US to confirm hydro has resolved, then remove stent in the office with DR. Rudolph, no further intervention planned at this time. (2) Pelvic abscess in female: Code(s): N73.9 - Female pelvic inflammatory disease, unspecified Status: Acute Assessment and Plan: Resolved s/p IR drainage of abscess. Continue current antibiotics. (3) Gross hematuria: Code(s): R31.0 - Gross hematuria Status: Acute Assessment and Plan: Repeat culture was sent. Her urine culture from 12/19/2020 was negative. Likely old urine/stent irritation that was trapped behind the obstructed urter, that is now draining. Likely with fluids and antibiotics urine will clear. Tailor antibiotics to urine cutlure if necessary. Expect some cloudy, bloody urine intermittently with stent in place. Stent is nto bothersome to her at this time. Subjective Subjective Date/Time Seen: 12/21/20 12:09 POD #1 Cystoscopy, right retrograde pyelogram, right stent placement Patient doing well today, notes no vaginal odor or discharge, urine is bloody today and cloudy, but draining well to gravity. She doesn't c/o pain in her abdomen and is tolerating her diet. Review of Systems Cardiovascular: Cardiovascular: Denies chest pain Respiratory: Respiratory: Reports no additional respiratory complaints Gastrointestinal: Gastrointestinal: Denies abdominal pain, Denies nausea and Denies vomiting Genitourinary: Genitourinary: Reports hematuria and Reports other (catheter in place) Exam Resp: Effort & Inspection: normal respiratory effort Cardio: Rate: regular rate GI: GI Palp: Yes Soft to palpation and No Tenderness to palpation present (GI) : General: Yes no CVA tenderness Urinary Catheter: Urinary Catheter: patent and draining, urine cloudy and urine red Extrem: General: no edema Objective Data Vital Signs Vital Signs: Vital Signs - 24 hr 12/20/20 12:52 12/20/20 13:00 12/20/20 13:15 Temperature 99.6 F Pulse Rate 116 H 109 H 101 H Respiratory Rate 18 15 16 Blood Pressure 98/65 L 101/65 99/66 L Pulse Oximetry 100 100 95 12/20/20 13:30 12/20/20 13:40 12/20/20 14:00 Temperature 98.9 F Pulse Rate 97 103 H 101 H Respiratory Rate 12 15 Blood Pressure 102/67 98/62 L Pulse Oximetry 100 98 12/20/20 15:21 12/20/20 16:00 12/20/20 18:00 Temperature 97.9 F Pulse Rate 98 97 97 Respiratory Rate 16 20 Blood Pressure 113/82 130/87 Pulse Oximetry 99 99 12/20/20 19:55 12/20/20 20:00 12/20/20 21:01 Temperature 102.1 F H 102.1 F H 98.6 F Pulse Rate 88 Respiratory Rate 18 Blood Pressure 139/85 110/76 Pulse Oximetry 99 12/20/20 22:00 12/21/20 00:00 12/21/20 02:00 Temperature 98.4 F Pulse Rate 103 H 89 94 Respiratory Rate 16 Blood Pressure 114/68 Pulse Oximetry 94 12/21/20 04:00 12/21/20 06:00 12/21/20 08:00 Temperature 98.9 F 98.3 F Pulse Rate 96 97 86 Respiratory Rate 20 12 Blood Pressure 117/75 121/81 Pulse Oximetry 95 95 Intake/Output Intake/Output: Intake & Output 12/18/20 12/19/20 12/20/20 12/21/20 23:59 23:59 23:59 23:59 Intake Total 2250 4970.0 2080 Output Total 2455 725 Balance 2250 2515.0 1355 Meds/Results Medications: Active Medications Generic Name Dose Route Start Last Admin Trade Name Freq PRN Reason Stop Dose Admin Acetaminophen 650 mg 12/20/20 10:24 Acetaminophen 325 Mg Tablet PO Q6H PRN Mild Pain (1-3) Or Fever Hydrocodone Bitart/Acetaminophen 1 tab 12/20/20 10:24 Hydrocodone/Acetaminophen (*Crx) 5-325 Mg Tablet PO Q6H PRN Pain Rated 4-6 when not NPO Hydrocodone Bitart/Acetaminophen 1 tab 12/20/20 10:24 12/21/20 0
[2020-12-21] MEDS: SIMETHICONE 80 MG TAB.CHEW PO ×2 (12:39→20:30)
[2020-12-21] MEDS: ONDANSETRON INJ 4 MG/2 ML VIAL IV PUSH (12:41)
--- NOTE | 2020-12-21 12:58 | PM.GYNPNOP ---
MOTOR EQUIPMENT SERGEANT - A/P Assessment and plan (1) Pelvic abscess in female: Code(s): N73.9 - Female pelvic inflammatory disease, unspecified Status: Acute Assessment and Plan: She is improving with current antibiotic therapy and drainage placed yesterday. White count trending normal and she has been afebrile. Continues to drain vaginally though minimal. He will continue with current antibiotic therapy. Will continue also with clear liquids until bowel function returns to normal. At this point concern for ileus and or obstruction is not significant though do not want her to stress the GI tract at this time. She states good understanding would just try fluids for now. Continues to do well with stent that was placed yesterday. Postoperative Procedures: Procedures Operation Date: 12/20/20 11:00 Actual Procedures Side Surgeon p Cystoscopy, Right Retrograde Pyelogram, Right Stent Placement, Right Ureteroscopy Right Narciso Rudolph MD s Vaginal Exam Under Anesthesia Not Applicable Richy Doan MD Time Spent With Patient Time: Total time spent is greater than 50% in coordination of care (as documented) at patient's floor/unit and/or counseling patient: Time with patient: 15 - 25 minutes MOTOR EQUIPMENT SERGEANT- PN:Subj Post-Op Subjective Date/time seen: 12/21/20 12:58 Interval history: Pain and pressure in the right lower quadrant and pelvis improved today. Her intake has been minimal and fluids only. Has had some nausea but relates this mostly to the drain which is closer to her head. Has had no vomiting though she does feel a bit gassy and bloated. Does relate that she has passed gas though she has not had a normal bowel movement. The catheter stent which was placed a yesterday has helped resolve the blockage and she states she notices it but it does not cause her pain. The drain in the abscess has drug had a fair amount of output and is not causing her any amount of significant discomfort. Exam GI: Inspection: normal to inspection GI Palp: Yes abdominal tenderness and Yes Soft to palpation Auscultation: Hypoactive bowel sounds present MOTOR EQUIPMENT SERGEANT - PN: Obj Data Vital Signs Vital Signs: Vital Signs - 24 hr 12/20/20 13:00 12/20/20 13:15 12/20/20 13:30 Temperature Pulse Rate 109 H 101 H 97 Respiratory Rate 15 16 12 Blood Pressure 101/65 99/66 L 102/67 Pulse Oximetry 100 95 100 12/20/20 13:40 02/03/21 14:00 12/20/20 15:21 Temperature 37.2 C Pulse Rate 103 H 101 H 98 Respiratory Rate 15 16 Blood Pressure 98/62 L 113/82 Pulse Oximetry 98 99 12/20/20 16:00 12/20/20 18:00 12/20/20 19:55 Temperature 36.6 C 38.9 C H Pulse Rate 97 97 Respiratory Rate 20 Blood Pressure 130/87 Pulse Oximetry 99 12/20/20 20:00 12/20/20 21:01 12/20/20 22:00 Temperature 38.9 C H 37.0 C Pulse Rate 88 103 H Respiratory Rate 18 Blood Pressure 139/85 110/76 Pulse Oximetry 99 12/21/20 00:00 12/21/20 02:00 12/21/20 04:00 Temperature 36.9 C 37.2 C Pulse Rate 89 94 96 Respiratory Rate 16 20 Blood Pressure 114/68 117/75 Pulse Oximetry 94 95 12/21/20 06:00 12/21/20 08:00 Temperature 36.8 C Pulse Rate 97 86 Respiratory Rate 12 Blood Pressure 121/81 Pulse Oximetry 95 Intake/Output Intake/Output: Intake & Output 12/18/20 12/19/20 12/20/20 12/21/20 23:59 23:59 23:59 23:59 Intake Total 2250 4970.0 2180 Output Total 2455 725 Balance 2250 2515.0 1455 Meds/Results Medications: Active Medications Generic Name Dose Route Start Last Admin Trade Name Freq PRN Reason Stop Dose Admin Acetaminophen 650 mg 12/20/20 10:24 Acetaminophen 325 Mg Tablet PO Q6H PRN Mild Pain (1-3) Or Fever Hydrocodone Bitart/Acetaminophen 1 tab 12/20/20 10:24 Hydrocodone/Acetaminophen (*Crx) 5-325 Mg Tablet PO Q6H PRN Pain Rated 4-6 when not NPO Hydrocodone Bitart/Acetaminophen 1 tab 12/20/20 10:24 12/21/20 12:13 Hydrocodone/Acetaminophen (*Crx) 10-325 Mg Tablet PO 1 tab
--- NOTE | 2020-12-21 13:23 | PC.NURSE ---
Patient downgraded to medical status, fluids and heparin attached and sent with patient, transferred to [facility] via bed with medications and belongings with patient. Arrived to [facility] at 1325.
--- NOTE | 2020-12-21 15:00 | PC.NURSE ---
Received transfer from IMU via bed with IMU staff. Patient awake and alert. No distress noted. No c/o pain. Percutaneous drain noted to left abdomen with dark brown drainage noted in bag. Rodriguez catheter draining dark [place] colored urine. Healing incisions noted to abdomen. Abdomen soft, distended, hypoactive bowel sounds. Patient states she feels some pressure from the bloating. Heparin gtt infusing at 14 ml/hr (1400 units/hr).
[2020-12-21 15:30] LABS: Partial Thromboplastin Time 47.7 SECONDS (22.3-36.8)
[2020-12-21] MEDS: HEPARIN SODIUM 5,000 UNITS/ML VIAL 6000 UNITS IV PUSH (15:49)
[2020-12-21] MEDS: ACETAMINOPHEN 325 MG TABLET 650 MG PO (18:38)
[2020-12-22] VITALS (7 sets, daily range): BP systolic 126–151; BP diastolic 79–93; PULSE 73–91; RESP 17–20; TEMP 36.4–37.9; O2SAT 96–100
[2020-12-22] MEDS: HEPARIN SOD/D5W 100 UNITS/ML 25,000 UNITS/250 ML BAG 16 UNITS IV CONT (00:50)
[2020-12-22] MEDS: ACETAMINOPHEN 325 MG TABLET 650 MG PO ×3 (00:52→20:07)
[2020-12-22] MEDS: metroNIDAZOLE 500 MG/ISO 100ML 500 MG/100 ML BAG 100 MG IVPB ×4 (05:08→23:02)
[2020-12-22 05:39] LABS: Hematocrit 26.7 % (37.0-47.0); Hemoglobin 8.9 g/dL (12.0-15.0); Mean Corpuscular HGB Conc 33.3 g/dl (32-36); Mean Corpuscular Hemoglobin 28.6 pg (26-34); Mean Corpuscular Volume 85.9 fl (80-100); Mean Platelet Volume 8.9 fl (7.4-10.4); Platelet Count Result 214 k/mm3 (150-375); Red Blood Count 3.11 M/mm3 (4.2-5.4); Red Cell Distribution Width 13.1 % (11.5-14.5); White Blood Count 5.6 K/mm3 (4.5-10.0)
[2020-12-22 06:01] LABS: Albumin Level 2.5 g/dL (3.5-5.1); Alkaline Phosphatase 61 U/L (38-126); Anion Gap 4 mmol/L (8-16); Aspartate Amino Transferase 15 U/L (14-36); Bilirubin,Total 0.2 mg/dL (0.2-1.3); Blood Urea Nitrogen 4 mg/dL (7-17); Calcium 7.4 mg/dL (8.4-10.2); Carbon Dioxide 26 mmol/L (22-30); Chloride 104 mmol/L (98-107); Estimated CRCL calculation 150 ml/min; Estimated Glomerular Filt Rate > 60; Glucose 108 mg/dL (65-105); Sodium 134 mmol/L (137-145)
[2020-12-22 06:10] LABS: Partial Thromboplastin Time 112.7 SECONDS (22.3-36.8)
[2020-12-22] MEDS: CLINDAMYCIN 900 MG/D5W 50 ML 900 MG/50 ML PIGGYBACK 50 MG IVPB ×3 (06:14→23:02)
[2020-12-22 06:50] LABS: Alanine Aminotransferase < 6 U/L (4-35)
--- NOTE | 2020-12-22 08:19 | PM.GYNPNOP ---
PIPE FITTER - A/P Postoperative Procedures: Procedures Operation Date: 12/20/20 11:00 Actual Procedures Side Surgeon p Cystoscopy, Right Retrograde Pyelogram, Right Stent Placement, Right Ureteroscopy Right Narciso Rudolph MD s Vaginal Exam Under Anesthesia Not Applicable Richy Doan MD Time Spent With Patient Time: Total time spent is greater than 50% in coordination of care (as documented) at patient's floor/unit and/or counseling patient: Time with patient: 15 - 25 minutes PIPE FITTER- PN:Subj Post-Op Subjective Date/time seen: 12/22/20 08:19 Interval history: Overall feeling much better today. States that she has been up in a chair without discomfort and only limited by the catheter pressure. She denies fevers chills has had no nausea or vomiting and has tolerated liquid diet without problem. Has had a bowel movement though it has been loose and watery. Pain has been well-controlled. On exam vital signs are stable she is afebrile. Drain has had minimal output overnight. Abdominal exam is soft nondistended minimal tenderness throughout with drain noted. Bowel sounds are normal in all quadrants. At this point will increase diet slowly and continue current plan of antibiotics and drainage. Will clear with Urology about catheter removal as this is no longer needed from a fluid management standpoint. PIPE FITTER - PN: Obj Data Vital Signs Vital Signs: Vital Signs - 24 hr 12/21/20 14:00 12/21/20 20:00 12/21/20 21:43 Temperature 37.1 C 37.7 C H Pulse Rate 91 93 93 Respiratory Rate 14 15 15 Blood Pressure 134/77 131/81 Pulse Oximetry 96 96 96 12/22/20 05:58 Temperature 36.8 C Pulse Rate 79 Respiratory Rate 17 Blood Pressure 141/79 H Pulse Oximetry 97 Intake/Output Intake/Output: Intake & Output 12/19/20 12/20/20 12/21/20 12/22/20 23:59 23:59 23:59 23:59 Intake Total 2250 4970.0 3800 850 Output Total 2455 2210 2305 Balance 2250 2515.0 1590 -1455 Meds/Results Medications: Active Medications Generic Name Dose Route Start Last Admin Trade Name Freq PRN Reason Stop Dose Admin Acetaminophen 650 mg 12/20/20 10:24 12/22/20 00:52 Acetaminophen 325 Mg Tablet PO 650 mg Q6H PRN Administration Mild Pain (1-3) Or Fever Hydrocodone Bitart/Acetaminophen 1 tab 12/20/20 10:24 Hydrocodone/Acetaminophen (*Crx) 5-325 Mg Tablet PO Q6H PRN Pain Rated 4-6 when not NPO Hydrocodone Bitart/Acetaminophen 1 tab 12/20/20 10:24 12/21/20 12:13 Hydrocodone/Acetaminophen (*Crx) 10-325 Mg Tablet PO 1 tab Q6H PRN Administration Pain Rated 7-10 when not NPO Heparin Sodium (Porcine) 6,000 units 12/20/20 10:24 12/21/20 15:49 Heparin Sodium 5,000 Units/Ml Vial IV PUSH 6,000 units PRN PRN Administration aPTT less than 55 seconds Heparin Sodium (Porcine) 3,000 units 12/20/20 10:24 12/21/20 01:58 Heparin Sodium 5,000 Units/Ml Vial IV PUSH 3,000 units PRN PRN Administration aPTT 55 - 70 seconds Hydromorphone HCl 1 mg 12/20/20 10:45 12/20/20 20:08 Hydromorphone Hcl Inj (*Crx) 1 Mg/Ml Syr IV PUSH 1 mg Q2H PRN Administration breakthrough pain or NPO Sodium Chloride 1,000 mls @ 75 mls/hr 12/19/20 21:00 12/21/20 23:47 Normal Saline Iv IV CONT 75 mls/hr .[id number] SAIMA Infusion Metronidazole 500 mg in 100 mls @ 100 mls/hr 12/20/20 00:00 12/22/20 06:09 Flagyl 500 Mg/Iso Soln 100 Ml IVPB Infused Q6HR SAIMA Infusion Clindamycin Phosphate 900 mg in 50 mls @ 50 mls/hr 12/20/20 05:00 12/22/20 06:14 Cleocin 900 Mg/D5w 50 Ml IVPB 50 mls/hr Q8HR SAIMA Administration Ceftriaxone Sodium 2 gm in 100 mls @ 200 mls/hr 12/20/20 13:00 12/21/20 12:44 Rocephin 2 Gm/D5w 100 Ml IVPB Infused Q24H SAIMA Infusion Heparin Sodium/Dextrose 25,000 units in 250 mls @ 15 mls/hr 12/20/20 18:00 12/22/20 06:33 Heparin Sodium/D5w 100 Units/Ml IV CONT 1,500 units/hr .[id number] SAIMA 15 mls/hr Titration Protocol 1,500 UNITS/HR On
--- NOTE | 2020-12-22 08:48 | WPDUROPN2 ---
Progress Note: A&P Assessment and Plan (1) Gross hematuria: Code(s): R31.0 - Gross hematuria Status: Acute Assessment and Plan: Improving, catheter is very bothersome and limiting her from activity. Will remove whitehead catheter and encourage activity as tolerated. Urine will continue to be bloody d/t the stent placement for the duration of it being in place, this is a normal finding. Initial culture from 12/19/2020 was negative, but a repeat urine culture. Blood preliminary anaerobic cultures do show growth of gram positive cocci. Continue IV antibiotics, tailor to final culture results. (2) Hydroureteronephrosis: Code(s): N13.30 - Unspecified hydronephrosis Status: Acute Assessment and Plan: Will get a LINNEA in a month, then follow up with Dr. Rudolph for a stent removal. No further evaluation necessary. Ok to discharge from a urologic standpoint at any time. Subjective Subjective Date/Time Seen: 12/22/20 08:48 POD #2 Cystoscopy right stent placement, right retrograde pyelogram. Patient is improved, urine remains bloody but not as dark and cloudy as previously noted. She is tolerating a liquid/soft diet. She notes diarrhea this morning. She denies any stent pain. Review of Systems Cardiovascular: Cardiovascular: Denies chest pain Respiratory: Respiratory: Reports no additional respiratory complaints Gastrointestinal: Gastrointestinal: Denies abdominal pain, Reports diarrhea, Denies nausea and Denies vomiting Genitourinary: Genitourinary: Reports hematuria and Reports other (whitehead in place) Exam Resp: Effort & Inspection: normal respiratory effort Cardio: Rate: regular rate GI: GI Palp: Yes Soft to palpation and No Tenderness to palpation present (GI) : General: Yes no CVA tenderness Urinary Catheter: Urinary Catheter: patent and draining, urine clear and urine red Extrem: General: no edema Objective Data Vital Signs Vital Signs: Vital Signs - 24 hr 12/21/20 14:00 12/21/20 20:00 12/21/20 21:43 Temperature 98.8 F 99.9 F H Pulse Rate 91 93 93 Respiratory Rate 14 15 15 Blood Pressure 134/77 131/81 Pulse Oximetry 96 96 96 12/22/20 05:58 12/22/20 08:00 Temperature 98.2 F 97.6 F Pulse Rate 79 73 Respiratory Rate 17 20 Blood Pressure 141/79 H 135/82 Pulse Oximetry 97 97 Intake/Output Intake/Output: Intake & Output 12/19/20 12/20/20 12/21/20 12/22/20 23:59 23:59 23:59 23:59 Intake Total 2250 4970.0 3800 1090 Output Total 2455 2210 2305 Balance 2250 2515.0 1590 -1215 Meds/Results Medications: Active Medications Generic Name Dose Route Start Last Admin Trade Name Freq PRN Reason Stop Dose Admin Acetaminophen 650 mg 12/20/20 10:24 12/22/20 00:52 Acetaminophen 325 Mg Tablet PO 650 mg Q6H PRN Administration Mild Pain (1-3) Or Fever Hydrocodone Bitart/Acetaminophen 1 tab 12/20/20 10:24 Hydrocodone/Acetaminophen (*Crx) 5-325 Mg Tablet PO Q6H PRN Pain Rated 4-6 when not NPO Hydrocodone Bitart/Acetaminophen 1 tab 12/20/20 10:24 12/21/20 12:13 Hydrocodone/Acetaminophen (*Crx) 10-325 Mg Tablet PO 1 tab Q6H PRN Administration Pain Rated 7-10 when not NPO Heparin Sodium (Porcine) 6,000 units 12/20/20 10:24 12/21/20 15:49 Heparin Sodium 5,000 Units/Ml Vial IV PUSH 6,000 units PRN PRN Administration aPTT less than 55 seconds Heparin Sodium (Porcine) 3,000 units 12/20/20 10:24 12/21/20 01:58 Heparin Sodium 5,000 Units/Ml Vial IV PUSH 3,000 units PRN PRN Administration aPTT 55 - 70 seconds Hydromorphone HCl 1 mg 12/20/20 10:45 12/20/20 20:08 Hydromorphone Hcl Inj (*Crx) 1 Mg/Ml Syr IV PUSH 1 mg Q2H PRN Administration breakthrough pain or NPO Sodium Chloride 1,000 mls @ 75 mls/hr 12/19/20 21:00 12/21/20 23:47 Normal Saline Iv IV CONT 75 mls/hr .[id number] [facility]A Infusion Metronidazole 500 mg in 100 mls @ 100 mls/hr 12/20/20 00:00 12/22/20 06:09 F
[2020-12-22] MEDS: POTASSIUM CHLORIDE 20 MEQ TABLET 40 MEQ PO (09:12)
--- NOTE | 2020-12-22 10:33 | PM.IMPN ---
Progress Note: A&P Assessment and Plan (1) Severe sepsis: Code(s): A41.9 - Sepsis, unspecified organism; R65.20 - Severe sepsis without septic shock Status: Inactive Assessment and Plan: Secondary to abscess -await cultures from the drain -continue clindamycin and Flagyl, watch for worsening diarrhea (WBC normal, cdiff less likely) -lactic acid normal on admission -white blood cell count 13.5 on admission but has resolved -sinus tachycardia has resolved (2) Pelvic abscess in female: Code(s): N73.9 - Female pelvic inflammatory disease, unspecified Status: Acute Assessment and Plan: Post op pelvic abscess -continue treatment as above -shoe reconditioner consulted and I spoke with him directly (3) Hydroureteronephrosis: Code(s): N13.30 - Unspecified hydronephrosis Status: Acute Assessment and Plan: Due to pelvic abscess. -stent placed 12/20/20 -patient has some red urine today likely due to the procedure, stent, and systemic anticoagulation -no signs of debris from the abscess, fistula seems less likely at this time -spoke with Urology, will likely have some blood with the stent. Will watch her hgb. (4) Leukocytosis: Qualifiers: Leukocytosis type: unspecified Qualified Code(s): D72.829 - Elevated white blood cell count, unspecified Code(s): D72.829 - Elevated white blood cell count, unspecified Status: Acute Assessment and Plan: Resolved (5) Status post hysterectomy: Code(s): Z90.710 - Acquired absence of both cervix and uterus Status: Acute Assessment and Plan: Patient had her surgery last and follows with (6) Thrombosis of ovarian vein: Code(s): I82.890 - Acute embolism and thrombosis of other specified veins Status: Acute Assessment and Plan: I spoke with the radiologist and shoe reconditioner about this finding -patient has no history of clotting disorder -will stop heparin at this time and transition to lovenox (less blood draws). -Monitor Hgb - If this gets worse, this may need to be stopped -will need to go home eventually on oral anticoagulation. Xarelto approved according to CC. Will likely go home on this if hgb remains stable (7) Electrolyte abnormality: Code(s): E87.8 - Other disorders of electrolyte and fluid balance, not elsewhere classified Status: Acute Assessment and Plan: Patient has hypokalemia and hyponatremia -likely due to pain and decreased appetite/diet -will replace potassium today and increased diet -if she is unable to tolerate a regular diet and continues to have electrolyte abnormalities, may consider TPN although I do not think this will be necessary Subjective Date/time seen: 12/22/20 10:33 Interval history: Pt is a 40-year-old female here for abdominal pain found to have a pelvic abscess and bilateral ovarian vein clots. Patient was seen today and states she is feeling better. She has not been able to move around the room very much because she is fatigued and had pain earlier but doing better now. She says she is much less bloated and is not any pain with the abdomen. She thinks the catheter is uncomfortable. She denies dizziness, lightheadedness, chest pain, cough, shortness of breath, fevers, chills, nausea or vomiting. She was able to the tolerate a full diet and is hoping to advance that. She has had about 3 or 4 mixed soft/liquid bowel movements but each time is a small amount. Exam Narrative: Exam Narrative: General: Well developed well nourished patient in NAD HEENT: normocephalic Neck: supple Neuro: Alert and oriented x4 CV: Regular rate and rhythm Resp:CTA Abd: Soft, non-distended. Surgical wounds without erythema, discharge or dehiscence. Positive bowel sounds Extremities: No swelling, erythema, or pain to palpation. Rodriguez catheter with small amount of theodore blood Objective Data Vital Sign
[2020-12-22] MEDS: SIMETHICONE 80 MG TAB.CHEW PO (11:48)
[2020-12-22 12:49] LABS: Hemoglobin 9.7 g/dL (12.0-15.0)
--- NOTE | 2020-12-22 12:58 | PM.GYNPNOP ---
WATERWAY TRAFFIC CHECKER - A/P Postoperative Procedures: Procedures Operation Date: 12/20/20 11:00 Actual Procedures Side Surgeon p Cystoscopy, Right Retrograde Pyelogram, Right Stent Placement, Right Ureteroscopy Right Narciso Rudolph MD s Vaginal Exam Under Anesthesia Not Applicable Richy Doan MD Time Spent With Patient Time: Total time spent is greater than 50% in coordination of care (as documented) at patient's floor/unit and/or counseling patient: Time with patient: less than 15 minutes WATERWAY TRAFFIC CHECKER- PN:Subj Post-Op Subjective Date/time seen: 12/22/20 12:58 culture of abscess noted. will likely stop clindamycin once susceptibility reported. Would expect rocephin/flagyl to be adequate coverage. WATERWAY TRAFFIC CHECKER - PN: Obj Data Vital Signs Vital Signs: Vital Signs - 24 hr 12/21/20 14:00 12/21/20 20:00 12/21/20 21:43 Temperature 37.1 C 37.7 C H Pulse Rate 91 93 93 Respiratory Rate 14 15 15 Blood Pressure 134/77 131/81 Pulse Oximetry 96 96 96 12/22/20 05:58 12/22/20 08:00 12/22/20 09:21 Temperature 36.8 C 36.4 C Pulse Rate 79 73 Respiratory Rate 17 20 Blood Pressure 141/79 H 135/82 Pulse Oximetry 97 97 96 Intake/Output Intake/Output: Intake & Output 12/19/20 12/20/20 12/21/20 12/22/20 23:59 23:59 23:59 23:59 Intake Total 2250 4970.0 3800 1140 Output Total 2455 2210 3005 Balance 2250 2515.0 1590 -1865 Meds/Results Medications: Active Medications Generic Name Dose Route Start Last Admin Trade Name Freq PRN Reason Stop Dose Admin Acetaminophen 650 mg 12/20/20 10:24 12/22/20 00:52 Acetaminophen 325 Mg Tablet PO 650 mg Q6H PRN Administration Mild Pain (1-3) Or Fever Hydrocodone Bitart/Acetaminophen 1 tab 12/20/20 10:24 Hydrocodone/Acetaminophen (*Crx) 5-325 Mg Tablet PO Q6H PRN Pain Rated 4-6 when not NPO Hydrocodone Bitart/Acetaminophen 1 tab 12/20/20 10:24 12/21/20 12:13 Hydrocodone/Acetaminophen (*Crx) 10-325 Mg Tablet PO 1 tab Q6H PRN Administration Pain Rated 7-10 when not NPO Enoxaparin Sodium 97 mg 12/22/20 15:00 Enoxaparin 100 Mg/Ml Syringe SUB-Q Q12H SAIMA Heparin Sodium (Porcine) 6,000 units 12/20/20 10:24 12/21/20 15:49 Heparin Sodium 5,000 Units/Ml Vial IV PUSH 12/22/20 18:00 6,000 units PRN PRN Administration aPTT less than 55 seconds Heparin Sodium (Porcine) 3,000 units 12/20/20 10:24 12/21/20 01:58 Heparin Sodium 5,000 Units/Ml Vial IV PUSH 12/22/20 18:00 3,000 units PRN PRN Administration aPTT 55 - 70 seconds Hydromorphone HCl 1 mg 12/20/20 10:45 12/20/20 20:08 Hydromorphone Hcl Inj (*Crx) 1 Mg/Ml Syr IV PUSH 1 mg Q2H PRN Administration breakthrough pain or NPO Hyoscyamine 0.125 mg 12/22/20 08:59 Hyoscyamine Sulfate 0.125 Mg Tablet PO Q4H PRN Bladder Spasm Sodium Chloride 1,000 mls @ 75 mls/hr 12/19/20 21:00 12/21/20 23:47 Normal Saline Iv IV CONT 75 mls/hr .[id number] [facility]A Infusion Metronidazole 500 mg in 100 mls @ 100 mls/hr 12/20/20 00:00 12/22/20 06:09 Flagyl 500 Mg/Iso Soln 100 Ml IVPB Infused Q6HR [facility] Infusion Clindamycin Phosphate 900 mg in 50 mls @ 50 mls/hr 12/20/20 05:00 12/22/20 07:14 Cleocin 900 Mg/D5w 50 Ml IVPB Infused Q8HR [facility] Infusion Ceftriaxone Sodium 2 gm in 100 mls @ 200 mls/hr 12/20/20 13:00 12/21/20 12:44 Rocephin 2 Gm/D5w 100 Ml IVPB Infused Q24H [facility] Infusion Heparin Sodium/Dextrose 25,000 units in 250 mls @ 15 mls/hr 12/20/20 18:00 12/22/20 06:33 Heparin Sodium/D5w 100 Units/Ml IV CONT 12/22/20 18:00 1,500 units/hr .[id number] SAIMA 15 mls/hr Titration Protocol 1,500 UNITS/HR Ondansetron HCl 4 mg 12/21/20 12:18 12/21/20 12:41 Ondansetron Inj 4 Mg/2 Ml Vial IV PUSH 4 mg Q6H PRN Administration Nausea And Vomiting Simethicone 80 mg 12/21/20 11:59 12/22/20 11:48 Simethicone 80 Mg Tab.Chew PO 80 mg QID PRN Administration Gas Discomfort Radiology Results: ITS
[2020-12-22] MEDS: SODIUM CHLORIDE 0.9% IV 1,000 ML 75 ML IV CONT (13:59)
[2020-12-22] MEDS: ENOXAPARIN 100 MG/ML SYRINGE 97 MG SUB-Q (17:03)
[2020-12-23 04:00] VITALS: BP 136/76; PULSE 60; RESP 18; TEMP 36.8; O2SAT 99
[2020-12-23] MEDS: SODIUM CHLORIDE 0.9% IV 1,000 ML 75 ML IV CONT ×2 (05:09→20:27)
[2020-12-23] MEDS: ACETAMINOPHEN 325 MG TABLET 650 MG PO ×2 (05:10→20:22)
[2020-12-23] MEDS: ONDANSETRON INJ 4 MG/2 ML VIAL IV PUSH (05:14)
[2020-12-23] MEDS: metroNIDAZOLE 500 MG/ISO 100ML 500 MG/100 ML BAG 100 MG IVPB ×4 (05:14→23:59)
[2020-12-23] MEDS: CLINDAMYCIN 900 MG/D5W 50 ML 900 MG/50 ML PIGGYBACK 50 MG IVPB (05:17)
[2020-12-23] MEDS: ENOXAPARIN 100 MG/ML SYRINGE 97 MG SUB-Q ×2 (05:20→18:10)
[2020-12-23 06:33] LABS: Hematocrit 28.2 % (37.0-47.0); Hemoglobin 9.3 g/dL (12.0-15.0); Mean Corpuscular Hemoglobin 28.3 pg (26-34); Mean Corpuscular Volume 85.7 fl (80-100); Mean Platelet Volume 9.2 fl (7.4-10.4); Platelet Count Result 221 k/mm3 (150-375); Red Blood Count 3.29 M/mm3 (4.2-5.4); Red Cell Distribution Width 12.8 % (11.5-14.5); White Blood Count 4.7 K/mm3 (4.5-10.0)
[2020-12-23 08:00] VITALS: BP 138/82; PULSE 58; RESP 17; TEMP 37; O2SAT 98
--- NOTE | 2020-12-23 09:53 | PM.GYNPNOP ---
INTENSIVE CARE UNIT REGISTERED NURSE - A/P Postoperative Procedures: Procedures Operation Date: 12/20/20 11:00 Actual Procedures Side Surgeon p Cystoscopy, Right Retrograde Pyelogram, Right Stent Placement, Right Ureteroscopy Right Narciso Rudolph MD s Vaginal Exam Under Anesthesia Not Applicable Richy Doan MD Time Spent With Patient Time: Total time spent is greater than 50% in coordination of care (as documented) at patient's floor/unit and/or counseling patient: Time with patient: less than 15 minutes INTENSIVE CARE UNIT REGISTERED NURSE- PN:Subj Post-Op Subjective Date/time seen: 12/23/20 09:53 Interval history: Ms. daugherty is ambulating/voiding/tolerating regular diet/normal bowel movements. Denies fever chills and loose stools she had been having seem to be improving. Overall improved in feeling better. Vital signs stable afebrile Abdomen soft nondistended positive bowel sounds throughout minimal tenderness Labs on chart noted Plan: 1. Continue IV antibiotics as current with clindamycin being stopped today. 2. Continue anticoagulation and will change to Xarelto per hospitalist. 3. Removed drain when no longer with significant output. 4. Likely will convert to oral antibiotics tomorrow and if does well we will discharge the following day. I briefly discussed with her the urologic followup which we will have scheduled for her after discharge as well as follow up in my office. Will likely also have her see hematology for long range plan of pelvic vein thrombosis. INTENSIVE CARE UNIT REGISTERED NURSE - PN: Obj Data Vital Signs Vital Signs: Vital Signs - 24 hr 12/22/20 14:00 12/22/20 14:16 12/22/20 17:01 Temperature 37.9 C H 37.9 C H 37.9 C H Pulse Rate 91 Respiratory Rate 20 Blood Pressure 126/85 Pulse Oximetry 99 12/22/20 20:00 12/23/20 04:00 12/23/20 08:00 Temperature 37.6 C 36.8 C 37.0 C Pulse Rate 81 60 58 L Respiratory Rate 18 18 17 Blood Pressure 151/93 H 136/76 138/82 Pulse Oximetry 100 99 98 Intake/Output Intake/Output: Intake & Output 12/20/20 12/21/20 12/22/20 12/23/20 23:59 23:59 23:59 23:59 Intake Total 4970.0 3800 3470 1600 Output Total 2455 2210 3505 1475 Balance 2515.0 1590 -35 125 Meds/Results Medications: Active Medications Generic Name Dose Route Start Last Admin Trade Name Freq PRN Reason Stop Dose Admin Acetaminophen 650 mg 12/20/20 10:24 12/23/20 05:10 Acetaminophen 325 Mg Tablet PO 650 mg Q6H PRN Administration Mild Pain (1-3) Or Fever Hydrocodone Bitart/Acetaminophen 1 tab 12/20/20 10:24 Hydrocodone/Acetaminophen (*Crx) 5-325 Mg Tablet PO Q6H PRN Pain Rated 4-6 when not NPO Hydrocodone Bitart/Acetaminophen 1 tab 12/20/20 10:24 12/21/20 12:13 Hydrocodone/Acetaminophen (*Crx) 10-325 Mg Tablet PO 1 tab Q6H PRN Administration Pain Rated 7-10 when not NPO Enoxaparin Sodium 97 mg 12/22/20 18:00 12/23/20 05:20 Enoxaparin 100 Mg/Ml Syringe SUB-Q 97 mg Q12H SAIMA Administration Hydromorphone HCl 1 mg 12/20/20 10:45 12/20/20 20:08 Hydromorphone Hcl Inj (*Crx) 1 Mg/Ml Syr IV PUSH 1 mg Q2H PRN Administration breakthrough pain or NPO Hyoscyamine 0.125 mg 12/22/20 08:59 Hyoscyamine Sulfate 0.125 Mg Tablet PO Q4H PRN Bladder Spasm Sodium Chloride 1,000 mls @ 75 mls/hr 12/19/20 21:00 12/23/20 05:09 Normal Saline Iv IV CONT 75 mls/hr .[id number] SAIMA Administration Metronidazole 500 mg in 100 mls @ 100 mls/hr 12/20/20 00:00 12/23/20 06:15 Flagyl 500 Mg/Iso Soln 100 Ml IVPB Infused Q6HR [facility] Infusion Ceftriaxone Sodium 2 gm in 100 mls @ 200 mls/hr 12/20/20 13:00 12/22/20 14:31 Rocephin 2 Gm/D5w 100 Ml IVPB Infused Q24H [facility] Infusion Ondansetron HCl 4 mg 12/21/20 12:18 12/23/20 05:14 Ondansetron Inj 4 Mg/2 Ml Vial IV PUSH 4 mg Q6H PRN Administration Nausea And Vomiting Simethicone 80 mg 12/21/20 11:59 12/22/20 11:48 Simethicone 80 Mg Tab.Chew PO 80 mg QID PRN Administration Gas Discomfort Radiology
--- NOTE | 2020-12-23 10:47 | PM.IMPN ---
Progress Note: A&P Assessment and Plan (1) Severe sepsis: Code(s): A41.9 - Sepsis, unspecified organism; R65.20 - Severe sepsis without septic shock Status: Inactive Assessment and Plan: Secondary to abscess -cultures growing Streptococcus -antibiotics adjusted to ceftriaxone and Flagyl -patient continues to have diarrhea but I do not suspect C diff (WBC normal, cdiff less likely) -lactic acid normal on admission -white blood cell count 13.5 on admission but has resolved -sinus tachycardia has resolved (2) Pelvic abscess in female: Code(s): N73.9 - Female pelvic inflammatory disease, unspecified Status: Acute Assessment and Plan: Post op pelvic abscess -continue treatment as above -associate consulting engineer consulted and I spoke with him directly -plan to possibly remove the drain in 1-2 days, we will see how much output a produces overnight (3) Hydroureteronephrosis: Code(s): N13.30 - Unspecified hydronephrosis Status: Acute Assessment and Plan: Due to pelvic abscess. -stent placed 12/20/20 -patient has some red urine today likely due to the procedure, stent, and systemic anticoagulation -no signs of debris from the abscess, fistula seems less likely at this time -spoke with Urology, will likely have some blood with the stent. Hemoglobin has been stable (4) Leukocytosis: Qualifiers: Leukocytosis type: unspecified Qualified Code(s): D72.829 - Elevated white blood cell count, unspecified Code(s): D72.829 - Elevated white blood cell count, unspecified Status: Acute Assessment and Plan: Resolved (5) Status post hysterectomy: Code(s): Z90.710 - Acquired absence of both cervix and uterus Status: Acute Assessment and Plan: Patient had her surgery last and follows with (6) Thrombosis of ovarian vein: Code(s): I82.890 - Acute embolism and thrombosis of other specified veins Status: Acute Assessment and Plan: I spoke with the radiologist and associate consulting engineer about this finding -patient has no history of clotting disorder -continue Lovenox -Monitor Hgb -will need to go home eventually on oral anticoagulation. Xarelto approved according to CC and will be sent home on this for at least 6 months (7) Electrolyte abnormality: Code(s): E87.8 - Other disorders of electrolyte and fluid balance, not elsewhere classified Status: Acute Assessment and Plan: Patient has had hypokalemia and hyponatremia while hospitalized -spoke to lab and their analyzer is down and it will be awhile before we get the results for today. Subjective Date/time seen: 12/23/20 10:47 Interval history: Pt is a 40-year-old female here for abdominal pain found to have a pelvic abscess and bilateral ovarian vein clots. Patient was seen today and states she is feeling better every day. She still having small amounts of diarrhea pretty frequently. She is eating and drinking much better and is able to take a regular diet. She is not sleeping very well and requests some melatonin. She denies chest pain or shortness of breath, fevers, chills, nausea, vomiting, abdominal pain or leg swelling. She no longer has vaginal discharge. She states the drain has not been emptied in a couple days Exam Narrative: Exam Narrative: General: Well developed well nourished patient in NAD HEENT: normocephalic Neck: supple Neuro: Alert and oriented x4 CV: Regular rate and rhythm Resp:CTA Abd: Soft, non-distended. Surgical wounds without erythema, discharge or dehiscence. Positive bowel sounds. Drain in place with crum discharge Extremities: No swelling, erythema, or pain to palpation. Rodriguez catheter with small amount of theodore blood Objective Data Vital Signs Vital Signs: Vital Signs - 24 hr 12/22/20 14:00 12/22/20 14:16 12/22/20 17:01 Temperature 100.3 F H 100.3 F H 100.3 F H Pulse Rate 91 R
[2020-12-23 12:35] LABS: Anion Gap 9 mmol/L (8-16); Blood Urea Nitrogen 4 mg/dL (7-17); Calcium 7.9 mg/dL (8.4-10.2); Carbon Dioxide 22 mmol/L (22-30); Chloride 105 mmol/L (98-107); Estimated CRCL calculation 150 ml/min; Estimated Glomerular Filt Rate > 60; Glucose 94 mg/dL (65-105); Magnesium 1.9 mg/dL (1.6-2.3); Potassium 3.2 mmol/L (3.4-5.0); Sodium 136 mmol/L (137-145)
[2020-12-23 12:56] VITALS: PULSE 72; RESP 16; O2SAT 95
[2020-12-23] MEDS: POTASSIUM CHLORIDE 20 MEQ PACKET (FOR LIQUID) 40 MEQ PO (13:43)
[2020-12-23 14:00] VITALS: BP 139/78; PULSE 68; RESP 18; TEMP 37.3; O2SAT 100
--- NOTE | 2020-12-23 15:10 | WPDUROPN2 ---
Progress Note: A&P Assessment and Plan (1) Hydroureteronephrosis: Code(s): N13.30 - Unspecified hydronephrosis Status: Acute Assessment and Plan: - continue antibiotics and drained per OBGYN team. -recommend the patient follow-up in the office for ureteral stent removal approximately 1 to 2 weeks after her infectious process has resolved. - Will plan for a renal ultrasound 1 month after stent removal to ensure there is resolution of her hydronephrosis. - Ok to discharge from a urologic standpoint when stable per primary team Subjective Subjective Date/Time Seen: 12/23/20 15:10 Patient states she is feeling better Review of Systems Review of Systems: All systems reviewed & are unremarkable except as noted in HPI and below Exam Const: General: cooperative and healthy appearing HENMT: Head: normal to inspection Resp: Effort & Inspection: normal respiratory effort Objective Data Vital Signs Vital Signs: Vital Signs - 24 hr 12/22/20 17:01 12/22/20 20:00 12/23/20 04:00 Temperature 37.9 C H 37.6 C 36.8 C Pulse Rate 81 60 Respiratory Rate 18 18 Blood Pressure 151/93 H 136/76 Pulse Oximetry 100 99 12/23/20 08:00 12/23/20 12:56 Temperature 37.0 C Pulse Rate 58 L 72 Respiratory Rate 17 16 Blood Pressure 138/82 Pulse Oximetry 98 95 Intake/Output Intake/Output: Intake & Output 12/20/20 12/21/20 12/22/20 12/23/20 23:59 23:59 23:59 23:59 Intake Total 4970.0 3800 3470 1940 Output Total 2455 2210 3505 1775 Balance 2515.0 1590 -35 165 Meds/Results Medications: Active Medications Generic Name Dose Route Start Last Admin Trade Name Freq PRN Reason Stop Dose Admin Acetaminophen 650 mg 12/20/20 10:24 12/23/20 05:10 Acetaminophen 325 Mg Tablet PO 650 mg Q6H PRN Administration Mild Pain (1-3) Or Fever Hydrocodone Bitart/Acetaminophen 1 tab 12/20/20 10:24 Hydrocodone/Acetaminophen (*Crx) 5-325 Mg Tablet PO Q6H PRN Pain Rated 4-6 when not NPO Hydrocodone Bitart/Acetaminophen 1 tab 12/20/20 10:24 12/21/20 12:13 Hydrocodone/Acetaminophen (*Crx) 10-325 Mg Tablet PO 1 tab Q6H PRN Administration Pain Rated 7-10 when not NPO Enoxaparin Sodium 97 mg 12/22/20 18:00 12/23/20 05:20 Enoxaparin 100 Mg/Ml Syringe SUB-Q 97 mg Q12H SAIMA Administration Hydromorphone HCl 1 mg 12/20/20 10:45 12/20/20 20:08 Hydromorphone Hcl Inj (*Crx) 1 Mg/Ml Syr IV PUSH 1 mg Q2H PRN Administration breakthrough pain or NPO Hyoscyamine 0.125 mg 12/22/20 08:59 Hyoscyamine Sulfate 0.125 Mg Tablet PO Q4H PRN Bladder Spasm Sodium Chloride 1,000 mls @ 75 mls/hr 12/19/20 21:00 12/23/20 05:09 Normal Saline Iv IV CONT 75 mls/hr .[id number] SAIMA Administration Metronidazole 500 mg in 100 mls @ 100 mls/hr 12/20/20 00:00 12/23/20 13:43 Flagyl 500 Mg/Iso Soln 100 Ml IVPB Infused Q6HR [facility] Infusion Ceftriaxone Sodium 2 gm in 100 mls @ 200 mls/hr 12/20/20 13:00 12/23/20 12:42 Rocephin 2 Gm/D5w 100 Ml IVPB Infused Q24H [facility] Infusion Melatonin 5 mg 12/23/20 21:00 Melatonin 5 Mg Tablet PO HS [facility]A Ondansetron HCl 4 mg 12/21/20 12:18 12/23/20 05:14 Ondansetron Inj 4 Mg/2 Ml Vial IV PUSH 4 mg Q6H PRN Administration Nausea And Vomiting Simethicone 80 mg 12/21/20 11:59 12/22/20 11:48 Simethicone 80 Mg Tab.Chew PO 80 mg QID PRN Administration Gas Discomfort Radiology Results: ITS Impressions Abdomen/Pelvis CT 12/19/20 19:59 IMPRESSION: 1. Complex walled off fluid/gas collection centered in the pelvis measuring up to 12.2 x 7.9 x 6.9 cm, consistent with abscess. 2: Moderate right hydroureteronephrosis with abrupt termination of the ureter in the pelvis contiguous with phlegmonous change/abscess which is the likely source of obstruction. 3: Mild retroperitoneal lymphadenopathy, likely reactive. 4: Small pleural effusions. ADDENDUM: 12/20/20 1854 There is thrombosis of
[2020-12-23 20:00] VITALS: BP 151/74; PULSE 69; RESP 20; TEMP 37.6; O2SAT 99
[2020-12-23] MEDS: MELATONIN 5 MG TABLET PO (20:23)
[2020-12-24 04:00] VITALS: BP 148/84; PULSE 64; RESP 18; TEMP 36.8; O2SAT 99
[2020-12-24 05:46] LABS: Hematocrit 30.6 % (37.0-47.0); Hemoglobin 10.1 g/dL (12.0-15.0)
[2020-12-24] MEDS: ONDANSETRON INJ 4 MG/2 ML VIAL IV PUSH (05:52)
[2020-12-24] MEDS: metroNIDAZOLE 500 MG/ISO 100ML 500 MG/100 ML BAG 100 MG IVPB (05:53)
[2020-12-24] MEDS: ENOXAPARIN 100 MG/ML SYRINGE 97 MG SUB-Q ×2 (05:53→18:13)
[2020-12-24 05:59] LABS: Anion Gap 3 mmol/L (8-16); Blood Urea Nitrogen 3 mg/dL (7-17); Calcium 7.7 mg/dL (8.4-10.2); Carbon Dioxide 27 mmol/L (22-30); Chloride 104 mmol/L (98-107); Estimated CRCL calculation 149 ml/min; Estimated Glomerular Filt Rate > 60; Glucose 93 mg/dL (65-105); Potassium 3.5 mmol/L (3.4-5.0); Sodium 134 mmol/L (137-145)
[2020-12-24] MEDS: POTASSIUM CHLORIDE 20 MEQ TABLET PO (08:56)
--- NOTE | 2020-12-24 09:03 | PM.GYNPNOP ---
BOARDMARKER - A/P Postoperative Procedures: Procedures Operation Date: 12/20/20 11:00 Actual Procedures Side Surgeon p Cystoscopy, Right Retrograde Pyelogram, Right Stent Placement, Right Ureteroscopy Right Narciso Rudolph MD s Vaginal Exam Under Anesthesia Not Applicable Richy Doan MD Time Spent With Patient Time: Total time spent is greater than 50% in coordination of care (as documented) at patient's floor/unit and/or counseling patient: Time with patient: less than 15 minutes BOARDMARKER- PN:Subj Post-Op Subjective Date/time seen: 12/24/20 09:03 Interval history: Ms. daugherty continues to do well. No new complaints today. Vital signs stable. Wound drain continues with output. Exam unchanged labs noted plan as per note yesterday convert to oral antibiotics today. BOARDMARKER - PN: Obj Data Vital Signs Vital Signs: Vital Signs - 24 hr 12/23/20 12:56 12/23/20 14:00 12/23/20 20:00 Temperature 37.3 C 37.6 C Pulse Rate 72 68 69 Respiratory Rate 16 18 20 Blood Pressure 139/78 151/74 H Pulse Oximetry 95 100 99 12/24/20 04:00 Temperature 36.8 C Pulse Rate 64 Respiratory Rate 18 Blood Pressure 148/84 H Pulse Oximetry 99 Intake/Output Intake/Output: Intake & Output 12/21/20 12/22/20 12/23/20 12/24/20 23:59 23:59 23:59 23:59 Intake Total 3800 3470 3580 1150 Output Total 2210 3505 3300 2040 Balance 1590 -35 280 -890 Meds/Results Medications: Active Medications Generic Name Dose Route Start Last Admin Trade Name Freq PRN Reason Stop Dose Admin Acetaminophen 650 mg 12/20/20 10:24 12/23/20 20:22 Acetaminophen 325 Mg Tablet PO 650 mg Q6H PRN Administration Mild Pain (1-3) Or Fever Hydrocodone Bitart/Acetaminophen 1 tab 12/20/20 10:24 Hydrocodone/Acetaminophen (*Crx) 5-325 Mg Tablet PO Q6H PRN Pain Rated 4-6 when not NPO Hydrocodone Bitart/Acetaminophen 1 tab 12/20/20 10:24 12/21/20 12:13 Hydrocodone/Acetaminophen (*Crx) 10-325 Mg Tablet PO 1 tab Q6H PRN Administration Pain Rated 7-10 when not NPO Enoxaparin Sodium 97 mg 12/22/20 18:00 12/24/20 05:53 Enoxaparin 100 Mg/Ml Syringe SUB-Q 97 mg Q12H SAIMA Administration Hydromorphone HCl 1 mg 12/20/20 10:45 12/20/20 20:08 Hydromorphone Hcl Inj (*Crx) 1 Mg/Ml Syr IV PUSH 1 mg Q2H PRN Administration breakthrough pain or NPO Hyoscyamine 0.125 mg 12/22/20 08:59 Hyoscyamine Sulfate 0.125 Mg Tablet PO Q4H PRN Bladder Spasm Sodium Chloride 1,000 mls @ 75 mls/hr 12/19/20 21:00 12/24/20 08:56 Normal Saline Iv IV CONT Infused .[id number] SAIMA Infusion Metronidazole 500 mg in 100 mls @ 100 mls/hr 12/20/20 00:00 12/24/20 06:53 Flagyl 500 Mg/Iso Soln 100 Ml IVPB Infused Q6HR SAIMA Infusion Ceftriaxone Sodium 2 gm in 100 mls @ 200 mls/hr 12/20/20 13:00 12/23/20 12:42 Rocephin 2 Gm/D5w 100 Ml IVPB Infused Q24H SAIMA Infusion Melatonin 5 mg 12/23/20 21:00 12/23/20 20:23 Melatonin 5 Mg Tablet PO 5 mg HS SAIMA Administration Ondansetron HCl 4 mg 12/21/20 12:18 12/24/20 05:52 Ondansetron Inj 4 Mg/2 Ml Vial IV PUSH 4 mg Q6H PRN Administration Nausea And Vomiting Simethicone 80 mg 12/21/20 11:59 12/22/20 11:48 Simethicone 80 Mg Tab.Chew PO 80 mg QID PRN Administration Gas Discomfort Radiology Results: ITS Impressions Abdomen/Pelvis CT 12/19/20 19:59 IMPRESSION: 1. Complex walled off fluid/gas collection centered in the pelvis measuring up to 12.2 x 7.9 x 6.9 cm, consistent with abscess. 2: Moderate right hydroureteronephrosis with abrupt termination of the ureter in the pelvis contiguous with phlegmonous change/abscess which is the likely source of obstruction. 3: Mild retroperitoneal lymphadenopathy, likely reactive. 4: Small pleural effusions. 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 I discussed this finding with Mikala Lord on 12/20/20 at 9:22 AM. There is also a portacaval sh
--- NOTE | 2020-12-24 09:10 | PM.DS ---
DS: Admitting Diagnosis Admitting Diagnosis Admitting Diagnosis: Postoperative pelvic abscess DS: Summary Hospital Course Hospital Course: patient admitted with postoperative pelvic abscess. Initiated antibiotic therapy and had CT drainage of the same abscess. Also found to have right ureteral blockage due to compression from the abscess which was resolved with a stent placed in the ureter and that stent remains in place. Patient responded well to the above and will be discharged home to follow up in the office in 48-72 hours. Time Spent with Patient Time attestation: Total time spent providing and/or coordinating discharge services: DS: Data Data Completed and Pending Labs on day of discharge: Labs from last 24 hours 12/24/20 12/24/20 12/23/20 05:11 05:11 06:08 Hgb 10.1 L Hct 30.6 L Sodium 134 L 136 L Potassium 3.5 3.2 L Chloride 104 105 Carbon Dioxide 27 22 Anion Gap 3 L 9 BUN 3 L 4 L Creatinine 0.50 L 0.50 L Estim Creat Clear Calc 149 150 Estimated GFR > 60 > 60 Glucose 93 94 Calcium 7.7 L 7.9 L Magnesium 1.9 C-Reactive Protein 9.0 H Preliminary micro results at discharge 12/20/20 15:03 Anaerobic Culture - Preliminary Abscess 12/19/20 18:16 Blood Culture - Preliminary Blood 12/19/20 17:49 Blood Culture - Preliminary Blood Discharge Plan Discharge Attending physician on discharge: Richy Doan Consulting providers: Mikala Lord ; Abimael Ha ; Josr Álvarez ; Jamal Marinelli Discharging Clinician: Richy Doan Anticipated Discharge Date/Time: 12/25/20 09:00 Patient Disposition: Home, Self-Care Activity: may shower, no driving and pelvic rest Diet: as tolerated Wound Care Instructions: incision open to air Discharge Instructions: Urology Instructions: Call Radiology to schedule Renal US, which should be done 2 days prior to your appointment with Dr. Rudolph for stent removal. Call the office to schedule a stent removal appointment with Dr. Rudolph in a month. Expect bloody, cloudy urine, burning with urination, frequency and urgency to urinate for the duration of the stent placement, if persistent burning, severe pain or fever ensue, please call the office or go to the ER. Patient Instructions: Antibiotic Form Stand Alone Forms: General Discharge Information Follow-up/Referrals: Narciso Rudolph MD [Physician] - Discharge Medications: New hyoscyamine sulfate [Levsin/SL] 0.125 mg tablet, sublingual 0.125 mg sublingual QID Qty: 30 RF: 1 Continued ibuprofen 600 mg tablet 600 mg PO Q8-12H RF: 0 oxycodone-acetaminophen 5-325 mg tablet 1 tablet PO Q6-8H PRN (Reason: Pain) RF: 0 metronidazole 500 mg PO BID Qty: 28 RF: 0 Discontinued amoxicillin-pot clavulanate 875 mg PO Q12-24H RF: 0 Other Ambulatory Orders: US renal BI (Routine) Timeframe: 1 Month Location: Determined by Patient Ordered By: Valentine Allen Date of admission: 12/19/20 20:59 Primary Care Provider: Richy Doan Admitting Provider: Richy Doan Attending physician on admission: Richy Doan Condition: Stable Quality VTE Prophylaxis VTE prophylaxis: mechanical ordered
--- NOTE | 2020-12-24 10:34 | PM.IMPN ---
Progress Note: A&P Assessment and Plan (1) Severe sepsis: Code(s): A41.9 - Sepsis, unspecified organism; R65.20 - Severe sepsis without septic shock Status: Inactive Assessment and Plan: Secondary to abscess -cultures growing Streptococcus -continue antibiotics ceftriaxone and Flagyl -diarrhea improved -lactic acid normal on admission -white blood cell count 13.5 on admission but has resolved -sinus tachycardia has resolved (2) Pelvic abscess in female: Code(s): N73.9 - Female pelvic inflammatory disease, unspecified Status: Acute Assessment and Plan: Post op pelvic abscess -continue treatment as above -managing jeweler consulted and I spoke with him directly -She had 100 mL of fluid out of the drain in the last 24 hours. I believe the plan is to send her home with the drain at this time (3) Hydroureteronephrosis: Code(s): N13.30 - Unspecified hydronephrosis Status: Acute Assessment and Plan: Due to pelvic abscess. -stent placed 12/20/20 -patient continues to have hematuria but it has improved and is likely due to procedure, stent, and systemic anticoagulation -spoke with Urology, will likely have some blood with the stent. Hemoglobin has been stable (4) Leukocytosis: Qualifiers: Leukocytosis type: unspecified Qualified Code(s): D72.829 - Elevated white blood cell count, unspecified Code(s): D72.829 - Elevated white blood cell count, unspecified Status: Acute Assessment and Plan: Resolved (5) Status post hysterectomy: Code(s): Z90.710 - Acquired absence of both cervix and uterus Status: Acute Assessment and Plan: Patient had her surgery last and follows with (6) Thrombosis of ovarian vein: Code(s): I82.890 - Acute embolism and thrombosis of other specified veins Status: Acute Assessment and Plan: I spoke with the radiologist and managing jeweler about this finding -patient has no history of clotting disorder -continue Lovenox -Monitor Hgb -will need to go home eventually on oral anticoagulation. Xarelto approved according to CC and will be sent home on this for at least 6 months (7) Electrolyte abnormality: Code(s): E87.8 - Other disorders of electrolyte and fluid balance, not elsewhere classified Status: Acute Assessment and Plan: Improved Subjective Date/time seen: 12/24/20 10:35 Interval history: Pt is a 40-year-old female here for abdominal pain found to have a pelvic abscess and bilateral ovarian vein clots. Patient was seen today and states she is feeling better every day. Her diarrhea, hematuria and problems with sleeping have improved. Pt denies nausea, vomiting, fevers, chills, constipation, cough, chest pain, sob, or abdominal pain. Exam Narrative: Exam Narrative: General: Well developed well nourished patient in NAD HEENT: normocephalic Neck: supple Neuro: Alert and oriented x4 CV: Regular rate and rhythm Resp:CTA Abd: Soft, non-distended. Surgical wounds without erythema, discharge or dehiscence. Positive bowel sounds. Drain in place with crum discharge Extremities: No swelling, erythema, or pain to palpation. Objective Data Vital Signs Vital Signs: Vital Signs - 24 hr 12/23/20 12:56 12/23/20 14:00 12/23/20 20:00 Temperature 99.1 F 99.6 F Pulse Rate 72 68 69 Respiratory Rate 16 18 20 Blood Pressure 139/78 151/74 H Pulse Oximetry 95 100 99 12/24/20 04:00 Temperature 98.2 F Pulse Rate 64 Respiratory Rate 18 Blood Pressure 148/84 H Pulse Oximetry 99 Intake/Output Intake/Output: Intake & Output 12/21/20 12/22/20 12/23/20 12/24/20 23:59 23:59 23:59 23:59 Intake Total 3800 3470 3580 1150 Output Total 2210 3505 3300 2040 Balance 1590 -35 280 -890 Meds/Results Medications: Active Medications Generic Name Dose Route Start Last Admin Trade Name Freq PRN Reason Stop Dose Adm
[2020-12-24 12:00] VITALS: BP 128/78; PULSE 74; RESP 16; TEMP 36.9; O2SAT 99
[2020-12-24] MEDS: ACETAMINOPHEN 325 MG TABLET 650 MG PO ×2 (15:17→21:41)
[2020-12-24] MEDS: metroNIDAZOLE 250 MG TABLET 500 MG PO (20:20)
[2020-12-24 21:09] VITALS: BP 156/82; PULSE 69; RESP 16; TEMP 37.2; O2SAT 100
[2020-12-24] MEDS: MELATONIN 5 MG TABLET PO (21:41)
[2020-12-25 05:00] VITALS: BP 136/83; PULSE 71; RESP 18; TEMP 36.5; O2SAT 96
[2020-12-25 05:41] LABS: Anion Gap 2 mmol/L (8-16); Blood Urea Nitrogen 5 mg/dL (7-17); CRP 3.3 mg/dL (<1.0); Calcium 8.2 mg/dL (8.4-10.2); Carbon Dioxide 30 mmol/L (22-30); Chloride 103 mmol/L (98-107); Estimated CRCL calculation 127 ml/min; Estimated Glomerular Filt Rate > 60; Glucose 98 mg/dL (65-105); Potassium 3.9 mmol/L (3.4-5.0); Sodium 135 mmol/L (137-145)
[2020-12-25] MEDS: ENOXAPARIN 100 MG/ML SYRINGE 97 MG SUB-Q (06:14)
[2020-12-25] MEDS: metroNIDAZOLE 250 MG TABLET 500 MG PO (08:32)
--- NOTE | 2020-12-25 09:29 | PM.IMPN ---
Progress Note: A&P Assessment and Plan (1) Severe sepsis: Code(s): A41.9 - Sepsis, unspecified organism; R65.20 - Severe sepsis without septic shock Status: Inactive Assessment and Plan: Secondary to abscess -cultures growing Streptococcus -continue antibiotics outpt per OB -diarrhea improved -lactic acid normal on admission -white blood cell WNL at discharge -sinus tachycardia has resolved (2) Pelvic abscess in female: Code(s): N73.9 - Female pelvic inflammatory disease, unspecified Status: Acute Assessment and Plan: Post op pelvic abscess -continue treatment as above -Pt is going home with the drain and will follow up with obgyn (3) Hydroureteronephrosis: Code(s): N13.30 - Unspecified hydronephrosis Status: Acute Assessment and Plan: Due to pelvic abscess. -stent placed 12/20/20 -hematuria resolved -Hemoglobin has been stable (4) Leukocytosis: Qualifiers: Leukocytosis type: unspecified Qualified Code(s): D72.829 - Elevated white blood cell count, unspecified Code(s): D72.829 - Elevated white blood cell count, unspecified Status: Acute Assessment and Plan: Resolved (5) Status post hysterectomy: Code(s): Z90.710 - Acquired absence of both cervix and uterus Status: Acute Assessment and Plan: follows with (6) Thrombosis of ovarian vein: Code(s): I82.890 - Acute embolism and thrombosis of other specified veins Status: Acute Assessment and Plan: I spoke with the radiologist and merchant mariner about this finding -patient has no history of clotting disorder -she was on heparin and lovenox during her stay. She was transitioned to xarelto and will need at least 6 months of that. (7) Electrolyte abnormality: Code(s): E87.8 - Other disorders of electrolyte and fluid balance, not elsewhere classified Status: Acute Assessment and Plan: resolved. Subjective Date/time seen: 12/25/20 09:29 Interval history: Pt is a 40-year-old female here for abdominal pain found to have a pelvic abscess and bilateral ovarian vein clots. Patient was seen today and states she is feeling better every day. She is not longer having hematuria or diarrhea. Pt denies nausea, vomiting, fevers, chills, constipation, cough, chest pain, sob, or abdominal pain. She is ready to go home. We discussed the risks of xarelto and the follow up she needs with it. Exam Narrative: Exam Narrative: General: Well developed well nourished patient in NAD HEENT: normocephalic Neck: supple Neuro: Alert and oriented x4 CV: Regular rate and rhythm Resp:CTA Abd: Soft, non-distended. Surgical wounds without erythema, discharge or dehiscence. Positive bowel sounds. Drain in place with crum discharge Extremities: No swelling, erythema, or pain to palpation. Objective Data Vital Signs Vital Signs: Vital Signs - 24 hr 12/24/20 12:00 12/24/20 21:09 12/25/20 05:00 Temperature 98.5 F 98.9 F 97.7 F Pulse Rate 74 69 71 Respiratory Rate 16 16 18 Blood Pressure 128/78 156/82 H 136/83 Pulse Oximetry 99 100 96 Intake/Output Intake/Output: Intake & Output 12/22/20 12/23/20 12/24/20 12/25/20 23:59 23:59 23:59 23:59 Intake Total 3470 3580 2270 250 Output Total 3505 3300 3255 1865 Balance -35 280 985 -1615 Meds/Results Medications: Active Medications Generic Name Dose Route Start Last Admin Trade Name Freq PRN Reason Stop Dose Admin Acetaminophen 650 mg 12/20/20 10:24 12/24/20 21:41 Acetaminophen 325 Mg Tablet PO 650 mg Q6H PRN Administration Mild Pain (1-3) Or Fever Hydrocodone Bitart/Acetaminophen 1 tab 12/20/20 10:24 Hydrocodone/Acetaminophen (*Crx) 5-325 Mg Tablet PO Q6H PRN Pain Rated 4-6 when not NPO Hydrocodone Bitart/Acetaminophen 1 tab 12/20/20 10:24 12/21/20 12:13 Hydrocodone/Acetaminophen (*Crx) 10-325 Mg T
== END 2020-12-25 09:00 | disposition home or self-care (01) | DRG 856 ==
LOC: ANHED 17:06 → ANHIMU 21:44 → ANH2MED 12-21 13:34
PROVIDERS: Family Medicine; Internal Medicine; Physician Assistant; Urology; Admitting Provider Obstetrics & Gynecology; Emergency Provider Emergency Medicine; PCP Obstetrics & Gynecology; Visit Provider Obstetrics & Gynecology
PROC: 0T768DZ Dilation of Right Ureter with Intraluminal Device, Via Natural or Artificial Opening Endoscopic (ICD-10-PCS; CPT 52352; principal; 2020-12-20 11:00)
PROC: (CPT 58260; 2020-12-20 11:00)
DX: T81.43XA Infection following a procedure, organ and space surgical site, initial encounter (principal); A41.9 Sepsis, unspecified organism; R65.20 Severe sepsis without septic shock; N13.30 Unspecified hydronephrosis; I82.890 Acute embolism and thrombosis of other specified veins; E87.1 Hypo-osmolality and hyponatremia; N73.9 Female pelvic inflammatory disease, unspecified; R31.0 Gross hematuria; E87.6 Hypokalemia; Z28.21 Immunization not carried out because of patient refusal; Z90.710 Acquired absence of both cervix and uterus
CPT/HCPCS: 36415; 74177; 74420; 75989; 80048; 80053; 80076; 81001; 83605; 83735; 85014; 85018; 85025; 85027; 85610; 85730; 86140; 86850; 86900; 86901; 87040; 87070; 87075; 87076; 87077; 87086; 87185; 87205; 96361; 96365; 96367; 96375; 99285; A9270; C1769; C1887; C2617; J0131; J0696; J1170; J1644; J1650; J2001; J2250; J2405; J2704; J3010; J7030; J7040; J7120; Q9966; Q9967

== ENCOUNTER 2021-01-02 16:44 | Inpatient (IN) | payer MEDICAID, SELFPAY ==
[2021-01-02] VITALS (26 sets, daily range): BP systolic 61–120; BP diastolic 36–95; PULSE 87–165; RESP 8–20; TEMP 35.8–37.3; O2SAT 93–100; BMI 27.9
--- NOTE | ~2021-01-02 | CT_ITS ---
EXAMINATION: CT abdomen pelvis w con INDICATION: Internal bleeding status post hysterectomy TECHNIQUE: Computed tomographic images of the abdomen and pelvis were obtained after the administrati on of 100 cc of Omnipaque 350 intravenous contrast. The dose-length product (DLP) was 773.60 mGy-cm. Automated exposure control and iterative reconstruction technique were employed. COMPARISON: 12/19/2020 FINDINGS: Minimal dependent atelectasis is present in the lung bases. The heart size is normal. There is a moderate volume of ascites. There are high attenuation components in the ascites in the left pe ricolic gutter and anterior pelvis. The liver, spleen, pancreas, gallbladder, and adrenal glands are normal. A right internal ureteral stent has been placed in expected position. Cysts of the kidneys me asure up to 10 mm on the right. The pelvic drainage catheter has been removed. There is persistent fl uid collection in the pelvis measuring approximately 8.0 x 5.7 x 6.3 cm. There appears to be packing material in the vagina. The bladder is decompressed by Rodriguez catheter. A small volume of gas in the u rinary bladder likely relates to catheterization. No pathologically enlarged abdominal or pelvic lymp h nodes are identified. There is evidence of bowel obstruction. IMPRESSION: 1. Moderate volume of ascites with high attenuation material in the left pericolic gutter and anterio r pelvis, consistent with hematoma. 2. Persistent pelvic abscess, decreased in size but measuring up to 8 cm. Reviewed, dictated and finalized at location A. S DEVELOPMENT CONSULTANT IMPRESSION: 1. Moderate volume of ascites with high attenuation material in the left bud lic gutter and anterior pelvis, consistent with hematoma. 2. Persistent pelvic abscess, decreased in size but measuring up to 8 cm.
[2021-01-02] MEDS: SODIUM CHLORIDE 0.9% IV 2,000 ML 999 ML IV CONT (16:45)
--- NOTE | 2021-01-02 17:00 | PC.NURSE ---
pt c/o feeling lightheaded. hr increased to 165. pants saturated with blood. pts hob lowered. pt had brief synopal episode last seconds. placed 2 liters nc. ns infusing wide open. vaginal area checked and large clots noted with active bleeding.
--- NOTE | 2021-01-02 17:07 | ED.GENADULT ---
HPI - General Adult General Chief complaint: Vaginal Bleeding Stated complaint: post surgerical bleeding Time Seen by Provider: 01/02/21 16:56 Source: patient History of Present Illness HPI narrative: Patient is a 40 y/o female complaining of severe vaginal bleeding starting less than 1 hour ago. She states that she was sitting there talking when the bleeding started. She is passing large amount of clots. There is no alleviating or exacerbating factor. She has some pelvic pain. She had a brief episode of passing out shortly upon arrival to ED. She had recent lap hysterectomy and subsequent abscess requiring drain placement. Related Data Home Medications Medication Instructions Recorded Confirmed oxycodone-acetaminophen 1 tablet PO Q6-8H PRN 12/19/20 12/19/20 Allergies Allergy/AdvReac Type Severity Reaction Status Date / Time No Known Allergies Allergy Verified 12/19/20 22:38 Review of Systems Constitutional: Constitutional: Denies chills, Denies fever(s), Denies headache(s) and Denies weakness Eyes: Eyes: Denies blurry vision ENT: Denies headache(s) and Denies neck pain Cardiovascular: Cardiovascular: Denies chest pain and Denies dyspnea Respiratory: Respiratory: Denies cough and Denies dyspnea Gastrointestinal: Gastrointestinal: Denies abdominal pain, Denies diarrhea, Denies nausea and Denies vomiting Genitourinary: Genitourinary: Reports abnormal vaginal bleeding, Denies hematuria and Denies dysuria Musculoskeletal: Musculoskeletal: Denies back pain and Denies neck pain Neurologic: Denies headache(s) and Denies weakness PMFSH Past Medical History Medical History Severe sepsis Surgical History Surgical History Status post hysterectomy Family History Family History Father Diabetes mellitus Congestive heart failure Mother Hypertension Social History Social History Smoking status: Never smoker Second hand tobacco smoke exposure: No Alcohol intake: current Substance use: never Substance use type: does not use and opiates Other substance usage details: post op pain meds Gender identity (if verbalized by the patient): Female Spiritual care concerns: No Exam Const: General: no acute distress and well developed Orientation/consciousness: oriented to person, oriented to place, oriented to time and patient oriented x3 HENMT: Head: normocephalic Ears: external ears normal General nose exam: Normal external nose present Eyes: General: appearance normal, both eyes and all related structures Conjunctivae: conjunctivae normal Neck: Neck: normal visual inspection and full ROM Chest: Chest palpation & inspection: normal inspection of the chest and no tenderness Resp: Effort & Inspection: normal respiratory effort Auscultation: clear to auscultation bilaterally Cardio: Rate: tachycardic Rhythm: regular rhythm GI: GI Palp: No abdominal tenderness and Yes Soft to palpation : Speculum Exam - Vagina: vaginal bleeding (brisk bleeding with large clots) Skin: General skin exam: normal color and turgor normal Neuro: General: oriented to person, oriented to place, oriented to time and patient oriented x3 Cognition (Neuro): normal cognition Extrem: General: normal to inspection, full ROM and no pedal edema Psych: Appearance: grossly normal Mental Status: mental status grossly normal Affect: normal affect Course Reevaluation(s) Reevaluation #1: Dr. Diaz ([facility]) is here to evaluate the patient in ED. Date: 01/02/21 Time: 17:40 Consultations Consultation #1: Discussed with Dr. Doan, informed Dr. Doan that patient is actively bleeding and will likely OR for bleeding control. Date: 01/02/21 Time: 17:17 Vital Signs Vital signs: Vital Signs Pulse R
[2021-01-02 17:10] LABS: Basophils Absolute Auto 0.1 K/mm3 (0.0-0.1); Basophils Percent Auto 0.6 % (0.2-1.2); Eosinophils Absolute Auto 0.2 K/mm3 (0-0.3); Eosinophils Percent Auto 1.9 % (0-4.4); Hematocrit 29.4 % (37.0-47.0); Hemoglobin 9.6 g/dL (12.0-15.0); Immature Granulocyte Absolute 0.03 K/mm3 (0.00-0.031); Immature Granulocyte Percent A 0.3 % (0-0.5); Lymphocytes Absolute Auto 7.15 K/mm3 (0.9-3.2); Lymphocytes Percent Auto 60.1 % (18.3-44.2); Mean Corpuscular HGB Conc 32.7 g/dl (32-36); Mean Corpuscular Hemoglobin 29.1 pg (26-34); Mean Corpuscular Volume 89.1 fl (80-100); Mean Platelet Volume 9.3 fl (7.4-10.4); Monocytes Absolute Auto 0.6 K/mm3 (0.1-0.6); Monocytes Percent Auto 4.7 % (2.6-8.5); Neutrophils Absolute Auto 3.9 K/mm3 (1.3-6.7); Neutrophils Percent Auto 32.4 % (45.5-73.1); Platelet Count Result 485 k/mm3 (150-375); Red Cell Distribution Width 13.6 % (11.5-14.5); White Blood Count 11.9 K/mm3 (4.5-10.0)
--- NOTE | 2021-01-02 17:15 | PC.NURSE ---
1st unit prbcs hung and infusing in left ac. see massive transfusion sheet. pt c/o feeling lightheaded.
--- NOTE | 2021-01-02 17:20 | PC.NURSE ---
first unit o neg hung and infusing without difficulty.
--- NOTE | 2021-01-02 17:20 | PC.NURSE ---
DR ANAYA AT BEDSIDE
[2021-01-02 17:21] LABS: INR 1.9; Prothrombin Time 22.8 Seconds (11.1-14.7)
[2021-01-02 17:22] LABS: Alanine Aminotransferase 14 U/L (4-35); Albumin Level 3.3 g/dL (3.5-5.1); Alkaline Phosphatase 76 U/L (38-126); Anion Gap 11 mmol/L (8-16); Aspartate Amino Transferase 20 U/L (14-36); Bilirubin,Total 0.2 mg/dL (0.2-1.3); Blood Urea Nitrogen 13 mg/dL (7-17); Calcium 8.2 mg/dL (8.4-10.2); Carbon Dioxide 24 mmol/L (22-30); Chloride 102 mmol/L (98-107); Estimated CRCL calculation 91 ml/min; Estimated Glomerular Filt Rate > 60; Glucose 134 mg/dL (65-105); Partial Thromboplastin Time 34.6 SECONDS (22.3-36.8); Potassium 3.6 mmol/L (3.4-5.0); Sodium 137 mmol/L (137-145)
[2021-01-02] MEDS: SODIUM CHLORIDE 0.9% IV 1,000 ML 999 ML IV CONT ×2 (17:45)
[2021-01-02] MEDS: SODIUM CHLORIDE 0.9% IV 250 ML 30 ML IV CONT (17:45)
--- NOTE | 2021-01-02 17:45 | PC.NURSE ---
1st unit infused. 2nd hung in left ac. pt prepped for or.
--- NOTE | 2021-01-02 17:58 | WPDANESEPPF ---
Anes - Initial Pre Proc Eval Procedure: Operation Date: 01/02/21 17:55 Proposed Procedures p Anterior and Posterior Repair - Richy Doan MD Date/Time: 01/02/21 17:58 Surgeon: Richy Doan MD Pre Op Diagnosis: post surgerical bleeding Patient Data Age: 40 Gender: F Height: 1.7 m Weight: 81 kg Last Vital Signs Pulse 87 01/02/21 16:45 Resp 20 01/02/21 16:45 Allergies Allergy/AdvReac Type Severity Reaction Status Date / Time No Known Allergies Allergy Verified 12/19/20 22:38 Home Medications Medication Instructions Recorded Confirmed Type oxycodone-acetaminophen 1 tablet PO Q6-8H PRN 12/19/20 12/19/20 History hyoscyamine sulfate [Levsin/SL] 0.125 mg SUBLINGUAL QID #30 tablet 12/22/20 Rx metronidazole 500 mg PO BID #28 tablet 12/24/20 12/19/20 Rx rivaroxaban [Xarelto] 15 mg PO BID #42 tablet 12/25/20 Rx rivaroxaban [Xarelto] 20 mg PO DAILY #30 tablet 12/25/20 Rx Laboratory Tests 01/02/21 01/02/21 01/02/21 16:59 16:59 16:59 WBC 11.9 K/mm3 H K/mm3 (4.5-10.0) RBC 3.30 M/mm3 L M/mm3 (4.2-5.4) Hgb 9.6 g/dL L g/dL (12.0-15.0) Hct 29.4 % L % (37.0-47.0) MCV 89.1 fl fl (80-100) MCH 29.1 pg pg (26-34) MCHC 32.7 g/dl g/dl (32-36) RDW 13.6 % % (11.5-14.5) Plt Count 485 k/mm3 H D k/mm3 (150-375) MPV 9.3 fl fl (7.4-10.4) Immature Gran % (Auto) 0.3 % % (0-0.5) Neut % (Auto) 32.4 % L % (45.5-73.1) Lymph % (Auto) 60.1 % H % (18.3-44.2) Holmes % (Auto) 4.7 % % (2.6-8.5) Eos % (Auto) 1.9 % % (0-4.4) Baso % (Auto) 0.6 % % (0.2-1.2) Lymph # (Auto) 7.15 K/mm3 H K/mm3 (0.9-3.2) Holmes # (Auto) 0.6 K/mm3 K/mm3 (0.1-0.6) Eos # (Auto) 0.2 K/mm3 K/mm3 (0-0.3) Baso # (Auto) 0.1 K/mm3 K/mm3 (0.0-0.1) Abs Immat Gran (auto) 0.03 K/mm3 K/mm3 (0.00-0.031) Absolute Neuts (auto) 3.9 K/mm3 K/mm3 (1.3-6.7) Absolute Nucleated RBC 0.0 K/mm3 K/mm3 (0.0-0.012) Nucleated RBC % 0.0 % % (0.0-0.2) PT 22.8 Seconds H Seconds (11.1-14.7) INR 1.9 APTT 34.6 SECONDS SECONDS (22.3-36.8) Sodium 137 mmol/L mmol/L (137-145) Potassium 3.6 mmol/L mmol/L (3.4-5.0) Chloride 102 mmol/L mmol/L (98-107) Carbon Dioxide 24 mmol/L mmol/L (22-30) Anion Gap 11 mmol/L mmol/L (8-16) BUN 13 mg/dL D mg/dL (7-17) Creatinine 0.80 mg/dL mg/dL (0.7-1.0) Estim Creat Clear Calc 91 ml/min ml/min Estimated GFR > 60 (59 - ) Glucose 134 mg/dL H mg/dL (65-105) Calcium 8.2 mg/dL L mg/dL (8.4-10.2) Total Bilirubin 0.2 mg/dL mg/dL (0.2-1.3) AST 20 U/L U/L (14-36) ALT 14 U/L U/L (4-35) Alkaline Phosphatase 76 U/L U/L (38-126) Total Protein 6.0 g/dL L g/dL (6.3-8.2) Albumin 3.3 g/dL L g/dL (3.5-5.1) Blood Type Antibody Screen Crossmatch 01/02/21 01/02/21 16:59 16:59 WBC RBC Hgb Hct MCV MCH MCHC RDW Plt Count MPV Immature Gran % (Auto) Neut % (Auto) Lymph % (Auto) Holmes % (Auto) Eos % (Auto) Baso % (Auto) Lymph # (Auto) Holmes # (Auto) Eos # (Auto) Baso # (Auto) Abs Immat Gran (auto) Absolute Neuts (auto) Absolute Nucleated RBC Nucleated RBC % PT INR APTT Sodium Potassium Chloride Carbon Dioxide Anion Gap BUN Creatinine Estim Creat Clear Calc Estimated GFR Glucose
--- NOTE | 2021-01-02 18:15 | WPDHPUPDATE1 ---
History and Physical Update Update Date/Time: 01/02/21 18:15 History and Physical has been reviewed, including an updated exam of the patient. There are NO changes in the patient's condition. Risks, benefits, and alternatives have been discussed and questions answered. Patient agrees to proceed with procedure.
--- NOTE | 2021-01-02 18:15 | PM.IMHP ---
H&P: HPI History of Present Illness Date/Time: 01/02/21 18:15 Chief Complaint: Vaginal bleeding Narrative: Leslie Pope is a 40 year old female presents the emergency room this evening with the sudden onset of bright red vaginal bleeding earlier today. She was discharged home 10 days ago with a postoperative abscess after hysterectomy for which a drain was placed and a since been removed and she is current on oral antibiotics. In regard to that she has had some pain from the stent that was placed at that time but overall has been feeling better and having more energy and generally feeling well until the episode this afternoon. Also has been on Xarelto due to venous thrombosis in the pelvic vessels. She is feeling tired and fatigued quite anxious. She has had essentially normal bowel and urine function up prior to admission. Review of Systems Review of Systems: All systems reviewed & are unremarkable except as noted in HPI and below PMFSH Past Medical History Medical History Severe sepsis Surgical History Surgical History Status post hysterectomy Family History Family History Father Diabetes mellitus Congestive heart failure Mother Hypertension Social History Social History Smoking status: Never smoker Second hand tobacco smoke exposure: No Alcohol intake: current Substance use: never Substance use type: does not use and opiates Other substance usage details: post op pain meds Gender identity (if verbalized by the patient): Female Spiritual care concerns: No Meds Home Medications and Allergies Home Medications Medication Instructions Recorded Confirmed Type oxycodone-acetaminophen 1 tablet PO Q6-8H PRN 12/19/20 12/19/20 History hyoscyamine sulfate [Levsin/SL] 0.125 mg SUBLINGUAL QID #30 tablet 12/22/20 Rx metronidazole 500 mg PO BID #28 tablet 12/24/20 12/19/20 Rx rivaroxaban [Xarelto] 15 mg PO BID #42 tablet 12/25/20 Rx rivaroxaban [Xarelto] 20 mg PO DAILY #30 tablet 12/25/20 Rx Allergies Allergy/AdvReac Type Severity Reaction Status Date / Time No Known Allergies Allergy Verified 12/19/20 22:38 Vital Signs Vital Signs - 24 hr 01/02/21 16:45 01/02/21 16:49 01/02/21 17:00 Temperature 35.8 C L Pulse Rate 87 165 H 116 H Respiratory Rate 20 20 Blood Pressure 106/86 111/73 Pulse Oximetry 100 96 01/02/21 17:15 01/02/21 17:30 01/02/21 17:45 Temperature Pulse Rate 129 H 144 H 150 H Respiratory Rate 12 15 12 Blood Pressure 116/95 H 119/90 106/75 Pulse Oximetry 93 93 96 01/02/21 17:50 Temperature 36.2 C L Pulse Rate 147 H Respiratory Rate 8 L Blood Pressure 108/80 Pulse Oximetry 100 Exam Const: General: anxious Resp: Auscultation: clear to auscultation bilaterally Cardio: Rate: tachycardic : Speculum Exam - Vagina: laceration (Vaginal cuff dehiscence of approximately 3cm noted by Dr. Diaz in ER) H&P: Results Labs Labs: Short CBC 01/02/21 Range/Units 16:59 WBC 11.9 H (4.5-10.0) K/mm3 Hgb 9.6 L (12.0-15.0) g/dL Hct 29.4 L (37.0-47.0) % Plt Count 485 H D (150-375) k/mm3 BMP 01/02/21 16:59 Sodium 137 Potassium 3.6 Chloride 102 Carbon Dioxide 24 BUN 13 D Creatinine 0.80 Glucose 134 H Calcium 8.2 L Liver Function 01/02/21 Range/Units 16:59 Total Bilirubin 0.2 (0.2-1.3) mg/dL AST 20 (14-36) U/L ALT 14 (4-35) U/L Alkaline Phosphatase 76 (38-126) U/L Albumin 3.3 L (3.5-5.1) g/dL Assessment and Plan Assessment and plan (1) Vaginal cuff dehiscence: Code(s): T81.31XA - Disruption of external operation (surgical) wound, not elsewhere classified, initial encounter Status: Acute (2) Pelvic abscess: Status: Acute (3) Thrombosis of
--- NOTE | 2021-01-02 19:18 | PM.OP ---
Procedure Note - Brief Procedure Note - Brief Date of procedure: 01/02/21 Pre-op diagnosis: post surgerical bleeding Vaginal wall dehiscence Post-op diagnosis: same Procedure performed: Repair of vaginal wall dehiscence Description of procedure: Patient was prepped and draped usual manner for this procedure. Visual vaginal exam was performed and the anterior and posterior edges of the vaginal cuff progressed with Allis clamps. Irrigation was undertaken and small bleeder was noted in the vaginal cuff. [id number] suture 0 PDS x4 were placed with good approximation and stabilization of the vaginal cuff. Packing was then placed and the patient was sent to recovery room in stable condition. Anesthesia: GLMA Surgeon: Richy Doan MD Estimated blood loss (mL): 550 Urine output (mL): 200 Drains: No Packing: Yes Pathology: none sent Complications: No immediate complications Condition: stable Disposition: PACU Findings: Upon visual exam defect of approximately 2-3 cm were noted in the midline.
[2021-01-02] MEDS: LACTATED RINGERS 1,000 ML 30 ML IV CONT ×2 (19:20)
[2021-01-02] MEDS: fentaNYL CITRATE INJ (*CRX) 100 MCG/2 ML VIAL 25 MCG IV PUSH ×2 (19:34→20:15)
--- NOTE | 2021-01-02 19:48 | SUR.OPER ---
post transfer from or bed to patient bed vaginal pad checked. Pad soaked with bright red blood small clots. Dr Doan notified and to room to assess. 2 yards of vaginal packing with BRONSON jelly on packing inserted vaginal by Dr Doan. New large gisela pad placed and MANUFACTURING CLERK aware. EBL 500ml as per Dr Doan.
--- NOTE | 2021-01-02 19:51 | SUR.OPER ---
Late entry/Ancef 2 gm given per anesthesia at 1825/see anesthesia record.
--- NOTE | 2021-01-02 19:57 | SUR.OPER ---
late entry/see anesthesia record for Human Prothrombin Complex started at [address] Duval via IV pump.
[2021-01-02] MEDS: ONDANSETRON INJ 4 MG/2 ML VIAL IV PUSH (21:38)
[2021-01-02] MEDS: DEXTROSE 5%/0.45% SOD CHL 1,000 ML 125 ML IV CONT (21:48)
[2021-01-02 22:07] LABS: Glucose Point of Care 204 (65-105)
[2021-01-02] MEDS: metroNIDAZOLE 500 MG/ISO 100ML 500 MG/100 ML BAG 100 MG IVPB (22:18)
[2021-01-03] VITALS (9 sets, daily range): BP systolic 86–111; BP diastolic 53–68; PULSE 97–116; RESP 12–20; TEMP 36.4–37.4; O2SAT 99–100
[2021-01-03] MEDS: MORPHINE SULFATE (*CRX) 2 MG/ML INJ IV PUSH ×2 (02:34→11:37)
[2021-01-03] MEDS: DEXTROSE 5%/0.45% SOD CHL 1,000 ML 125 ML IV CONT ×3 (04:34→23:31)
[2021-01-03] MEDS: FUROSEMIDE INJ 40 MG/4 ML VIAL IV PUSH (05:40)
[2021-01-03] MEDS: metroNIDAZOLE 500 MG/ISO 100ML 500 MG/100 ML BAG 100 MG IVPB ×3 (05:41→22:00)
--- NOTE | 2021-01-03 05:50 | PC.NURSE ---
This patient, Leslie Pope, was received from PACU on 01/02/21 at 2127. Patient/family oriented to unit policies and routines
[2021-01-03 08:05] LABS: Anion Gap 3 mmol/L (8-16); Blood Urea Nitrogen 11 mg/dL (7-17); Calcium 6.8 mg/dL (8.4-10.2); Carbon Dioxide 23 mmol/L (22-30); Chloride 106 mmol/L (98-107); Estimated CRCL calculation 118 ml/min; Estimated Glomerular Filt Rate > 60; Glucose 159 mg/dL (65-105); INR 1.2; Potassium 4.4 mmol/L (3.4-5.0); Prothrombin Time 15.8 Seconds (11.1-14.7); Sodium 132 mmol/L (137-145)
[2021-01-03 08:06] LABS: Partial Thromboplastin Time 29.4 SECONDS (22.3-36.8)
[2021-01-03 08:08] LABS: Basophils Percent Auto 0.1 % (0.2-1.2); Hematocrit 26.6 % (37.0-47.0); Hemoglobin 9.2 g/dL (12.0-15.0); Immature Granulocyte Absolute 0.05 K/mm3 (0.00-0.031); Immature Granulocyte Percent A 0.5 % (0-0.5); Lymphocytes Absolute Auto 1.06 K/mm3 (0.9-3.2); Lymphocytes Percent Auto 9.6 % (18.3-44.2); Mean Corpuscular HGB Conc 34.6 g/dl (32-36); Mean Corpuscular Hemoglobin 29.9 pg (26-34); Mean Corpuscular Volume 86.4 fl (80-100); Mean Platelet Volume 9.6 fl (7.4-10.4); Monocytes Absolute Auto 0.6 K/mm3 (0.1-0.6); Monocytes Percent Auto 5.6 % (2.6-8.5); Neutrophils Absolute Auto 9.3 K/mm3 (1.3-6.7); Neutrophils Percent Auto 84.2 % (45.5-73.1); Platelet Count Result 211 k/mm3 (150-375); Red Blood Count 3.08 M/mm3 (4.2-5.4); Red Cell Distribution Width 14.7 % (11.5-14.5)
--- NOTE | 2021-01-03 08:20 | PC.NURSE ---
Report given to Dr. Pitts regarding consult request per Dr. Doan. Gave Dr. Doan's phone number to Dr. Pitts so he can call him with any further questions.
--- NOTE | 2021-01-03 08:50 | PC.NURSE ---
Addendum entered by Nora Ball RN 01/03/21 10:56: Pt to CT at 0750. Original Note: To CT per bed.
--- NOTE | 2021-01-03 09:15 | PC.NURSE ---
Called Dr. Doan regarding CT results. Orders noted regarding pt. care today. Dr. Doan asked that I call and speak with radiologist to consult in regards to his professional opinion whether or not pt requires a drain placement to drain pelvic fluid/contents. Per Dr. Doan's orders, pt's vaginal packing and whitehead catheter to stay in. Keep pt NPO until speaking with radiologist.
--- NOTE | 2021-01-03 09:30 | PC.NURSE ---
Radiologist, Dr. Sr, called per Dr. Doan's request to inquire of the need of a drain placement. Dr. Sr stated that per pt's CT scan it does not look like an emergent drain placement is warranted especially if pt is not demonstrating S&S of infection. He stated that to place a drain it would be easiest to have access from the pt's backside and it would be easier after the pt had a BM. I informed Dr. Sr of pt's fair status in regards to c/o dizziness when raising the head of the bed accompanied by decreased blood pressures. Pt also had vaginal packing and the likelihood of her getting up for a bowel movement is minimal.
--- OUTSIDE RECORDS SUMMARY | 2021-01-03 09:44 | XMS_ITS ---
:1980 Author Care Team Providers Name Role Phone [facility] Primary Care Provider Unavailable Allergies Code Code System Name Reaction Severity Status Onset NKDA ? Medications Name Status Start Date Stop Date ? ? amoxicillin 875 mg-potassium clavulanate 125 mg tablet Active ? Not available TAKE 1 TABLET BY MOUTH EVERY 12 HOURS FOR 7 DAYS Azurette (28) 0.15 mg-0.02 mg (21)/0.01 mg (5) tablet Completed ? 05/15/2020 Take 1 tablet every day by oral route for 28 days. Bactrim DS 800 mg-160 mg tablet Active ? Not available Take 1 tablet every 12 hours by oral route for 14 days. Cytotec 200 mcg tablet Completed ? 0 Take 2 tablets by oral route at bedtime for 1 day. ferrous sulfate 325 mg (65 mg iron) tablet Completed ? 06/28/2020 Take 1 tablet every day by oral route. folic acid Completed ? 05/15/2020 hydrocodone 5 mg-acetaminophen 325 mg tablet Active ? Not available TAKE 1 TABLET BY MOUTH EVERY 4 HOURS (MAX OF 4000MG OF APAP PER 24 HOURS) ibuprofen 600 mg tablet Completed ? 06/28/20 20 TAKE 1 TABLET BY MOUTH ONCE EVERY 8 HOURS metronidazole 500 mg tablet Active ? Not available Take 1 tablet twice a day by oral route for 14 days. naproxen 500 mg tablet Unknown ? Not avail able TK 1 T PO BID PRF PAIN nifedipine 10 mg capsule Unknown ? Not shen ilable TK 1 C PO Q 6 H norethindrone (contraceptive) 0.35 mg Unknown ? Not available tablet oxycodone-acetaminophen 5
--- OUTSIDE RECORDS SUMMARY | 2021-01-03 09:44 | XMS_ITS | Encounter Summary ---
:1980 Author Reason for Visit POST-OP drain removal/ ss Assessment and Plan 1. Postoperative care ? US, transvaginal Discussion Note Diet/ambulation N. Urine ok, bloody . Stool loose/not watery. Pain ok. Will continue ab, f/u 2 weeks. US 4 week s for resolution. Will need heme/onc f/u as well. Patient educational handouts: No information available. Plan of Care Reminders Provider Appointments Any Est Pt 01/10/2021 Maciej Doan, Visit 10:40AM ? Ultrasound 01/22/2021 [facility] 9:00AM ? Research Advisor [facility] on or around Richy Doan, 11/20/2021 Lab None ? ? recorded. Referral None ? ? recorded. Procedures None ? ? recorded. Surgeries None ? ? recorded. [facility] Medications Name Start Date ? ? Bactrim DS 800 mg-160 mg tablet ? Take 1 tablet every 12 hours by oral route for 14 day s. hydrocodone 5 mg-acetaminophen 325 mg tablet ? TAKE 1 TABLET BY MOUTH EVERY 4 HOURS (MAX OF 4000MG O F APAP PER 24 HOURS) metronidazole 500 mg tablet ? Take 1 tablet twice a day by oral route for 14 days. Medications Administered None recorded.
--- OUTSIDE RECORDS SUMMARY | 2021-01-03 09:44 | XMS_ITS | Encounter Summary ---
:1980 Author Reason for Visit POST-OP 1 week post op 12/07/2020 LEEP/ ss Assessment and Plan 1. Postoperative care 2. Carcinoma in situ of uterine cervix ? total laparoscopic hystere ctomy, robotic assisted (SURG) Discussion Note Reviewed pathology/will schedule fo r RATLH as soon as possible. Patient educational handouts: No information available. Plan of Care Reminders Provider Appointments Any Est Pt 01/10/2021 Denn is Visit 10:40AM MD Olimpia ? Ultrasound 01/22/2021 9:00AM [facility]ounds ? Budget Officer [facility] on or around Richy 11/20/2021 MD Olimpia Lab None recorded. ? ? Referral None recorded. ? ? Procedures None recorded. ? ? Surgeries Total 12/14/2020 [facility], Robotic Ctr (Pre-S creen) Assisted (SURG) Imaging None recorded. ? ? Medications Name Start Date ? ? Bactrim DS 800 mg-160 mg tablet ? Take 1 tablet every 12 hours by oral route for 14 day s. hydrocodone 5 mg-acetaminophen 325 mg tablet ?
--- OUTSIDE RECORDS SUMMARY | 2021-01-03 09:44 | XMS_ITS | Encounter Summary ---
:1980 Author Reason for Visit well woman exam wwe/ pap/ss Assessment and Plan 1. Gynecologic examination ? pap, LB + HR HPV 2. Anemia screening ? CBC Discussion Note Reviewed pathology again and she pr efers to have pap performed and decide if anything further needed. Again I suggest ed LEEP. Will defer any evaluation for pressure as not a big issue thus far. Patient educational handouts: No information available. Plan of Care Reminders Provider Appointments Any Est Pt 01/10/2021 Maciej Doan, Visit 10:40AM ? Ultrasound 01/22/2021 [facility] 9:00AM ? Roof Panel Hanger [facility] on or around Richy Doan, 11/20/2021 Lab Pap, LB + hr 11/20/2020 [facility] (Lab) ? Cbc 11/20/2020 [facility] (Lab) Referral None ? ? recorded. Procedures None ? ? recorded. Surgeries None ? ? recorded. Imaging None ? ? recorded. Medications Name Start Date ? ? Bactrim DS 800 mg-160 mg tablet ? Take 1 tablet every 12 hours by
[2021-01-03] MEDS: ACETAMINOPHEN 325 MG TABLET 650 MG PO ×3 (10:17→23:32)
--- NOTE | 2021-01-03 10:54 | PC.NURSE ---
Addendum entered by Nora Ball RN 01/03/21 10:56: Dr. Doan was here at 0745. Original Note: Dr. Doan here to see pt. No orders noted.
[2021-01-03] MEDS: SIMETHICONE 80 MG TAB.CHEW PO ×3 (12:27→23:32)
--- NOTE | 2021-01-03 12:35 | PC.NURSE ---
Dr. Diaz here to assess pt.
--- NOTE | 2021-01-03 12:35 | PC.NURSE ---
Spoke with Flora JAMES in the hospitalist group regarding the consult to hematology. She stated she wanted the gospel worker to to evaluate the pt to see if she needs to go back on anticoagulant therapy once she is discharged from the hospital.
--- NOTE | 2021-01-03 13:57 | PC.NURSE ---
Called Dr Gaston Carrington, director dermatology regarding hospitalist requesting a consult to evaluate pt continuing anticoagulant therapy after discharge from the hospital. Brief report given to . He stated he will look at her chart and attempt to see her.
[2021-01-03 15:10] LABS: Basophils Percent Auto 0.3 % (0.2-1.2); Eosinophils Percent Auto 0.3 % (0-4.4); Hemoglobin 7.8 g/dL (12.0-15.0); Immature Granulocyte Absolute 0.19 K/mm3 (0.00-0.031); Immature Granulocyte Percent A 1.6 % (0-0.5); Lymphocytes Absolute Auto 1.85 K/mm3 (0.9-3.2); Lymphocytes Percent Auto 15.4 % (18.3-44.2); Mean Corpuscular HGB Conc 35.5 g/dl (32-36); Mean Corpuscular Hemoglobin 29.8 pg (26-34); Mean Platelet Volume 9.1 fl (7.4-10.4); Monocytes Absolute Auto 0.9 K/mm3 (0.1-0.6); Monocytes Percent Auto 7.5 % (2.6-8.5); Neutrophils Percent Auto 74.9 % (45.5-73.1); Platelet Count Result 196 k/mm3 (150-375); Red Blood Count 2.62 M/mm3 (4.2-5.4); Red Cell Distribution Width 14.5 % (11.5-14.5)
[2021-01-03 15:21] LABS: Alanine Aminotransferase 12 U/L (4-35); Albumin Level 2.1 g/dL (3.5-5.1); Alkaline Phosphatase 34 U/L (38-126); Anion Gap 2 mmol/L (8-16); Aspartate Amino Transferase 18 U/L (14-36); Bilirubin,Total 0.2 mg/dL (0.2-1.3); Blood Urea Nitrogen 9 mg/dL (7-17); Calcium 6.9 mg/dL (8.4-10.2); Carbon Dioxide 20 mmol/L (22-30); Chloride 108 mmol/L (98-107); Estimated CRCL calculation 139 ml/min; Estimated Glomerular Filt Rate > 60; Glucose 117 mg/dL (65-105); Potassium 3.8 mmol/L (3.4-5.0); Sodium 130 mmol/L (137-145)
--- NOTE | 2021-01-03 17:34 | PM.GYNPNOP ---
THAW SHED HEATER TENDER - A/P Assessment and plan (1) Postoperative vaginal bleeding: Status: Acute Assessment and Plan: - POD #1 s/p vaginal cuff closure - Vaginal packing to be removed @ 1900 01/03/21 - H/H stable this morning; slight decrease this afternoon likely dilational-- vitals stable, asymptomatic (s/p 2u pRBC in ER/intraop) - If H/H less than 7 tomorrow, will transfuse additional unit of pRBC - Repeat labs daily - Pain control w/ morphine, dilaudid, tylenol PRN (wants to avoid norco/percocet due to hallucinations) - Continue IV fluids; NPO tonight after midnight, will advance diet tomorrow - Will replace electrolytes PRN - Bowel regiment--- colace scheduled. miralax and suppository tonight to have BM tonight before CT drain placement tomorrow - Ambulation encouraged if not symptomatic (orthostatic BP's normal). - SCD's at all times (2) Pelvic abscess: Status: Acute Assessment and Plan: - continue IV antibiotics - Radiology consulted; CT guided drain to be placed 01/04/21 to help drain hematoma to prevent further infection. - Will keep whitehead in place tonight; plan for removal after drain placement - NPO + IVF after midnight. Will advance diet tomorrow. (3) Vaginal cuff dehiscence: Qualifiers: Encounter type: initial encounter Qualified Code(s): T81.31XA - Disruption of external operation (surgical) wound, not elsewhere classified, initial encounter Code(s): T81.31XA - Disruption of external operation (surgical) wound, not elsewhere classified, initial encounter Status: Acute (4) Gross hematuria: Code(s): R31.0 - Gross hematuria Status: Acute (5) Thrombosis of ovarian vein: Code(s): I82.890 - Acute embolism and thrombosis of other specified veins Status: Acute Assessment and Plan: - thrombosis persistent, but nearly completely resolved on CT this AM - will continue to hold anticoagulation - Will re-evaluate after drain placement/hemoglobin stable Postoperative Procedures: Procedures Operation Date: 01/02/21 17:55 Actual Procedures Side Surgeon p REPAIR OF VAGINAL CUFF DEHISENCNCE Not Applicable Richy Doan MD Time Spent With Patient Time: Total time spent is greater than 50% in coordination of care (as documented) at patient's floor/unit and/or counseling patient: Time with patient: less than 15 minutes THAW SHED HEATER TENDER- PN:Subj Post-Op Subjective Date/time seen: 01/03/21 17:34 POD#1 from vaginal closure--- readmitted with vaginal bleeding s/p RA-TLH complicated by pelvic abscess/thrombophlebitis. Leslie reports feeling better today. She continues to have abdominal pain as well as shoulder pain (radiates). She has tolerated liquids; no N/V. She is burping, no gas from below but reports she feels her stomach moving. She denies vaginal bleeding; vaginal packing remains in place. She has a whitehead catheter in place; draining w/o issue and adequate urine output. She has not ambulated; has sat up. She denies CP, SOB, dizziness, fever, chills, N/V, headache or vision changes. Review of Systems Review of Systems: All systems reviewed & are unremarkable except as noted in HPI and below (HPI) Exam Const: General: cooperative and no acute distress Resp: Effort & Inspection: normal respiratory effort and able to speak in complete sentences Auscultation: clear to auscultation bilaterally, no crackles, no wheezes and lung sounds not diminished Cardio: Rate: regular rate GI: Inspection: distended and incision (laparoscopic incisions healing) GI Palp: Yes abdominal tenderness (appropriate) and Yes Soft to palpation Auscultation: normal bowel sounds : Other: no vaginal bleeding; packing in place Urinary Catheter: Urinary Catheter: patent and draining (blood tinged from stent) Skin: General skin exam: normal color Neuro: General: patient oriented x3 Psych: Appearance: grossly normal THAW SHED HEATER TENDER - PN: Obj Data Vital Signs Vital Signs: Vital Signs - 24 h
[2021-01-03] MEDS: polyethylene glycoL 3350 17 GM POWD.PACK PO (19:27)
[2021-01-03] MEDS: BISACODYL 10 MG SUPPOSITORY RECTAL (19:28)
[2021-01-04] VITALS (29 sets, daily range): BP systolic 90–143; BP diastolic 54–80; PULSE 76–118; RESP 12–18; TEMP 36.7–39; O2SAT 95–100
[2021-01-04] MEDS: MORPHINE SULFATE (*CRX) 2 MG/ML INJ IV PUSH ×3 (01:00→09:47)
[2021-01-04] MEDS: metroNIDAZOLE 500 MG/ISO 100ML 500 MG/100 ML BAG 100 MG IVPB ×2 (05:22→23:53)
[2021-01-04 05:59] LABS: Basophils Percent Auto 0.5 % (0.2-1.2); Eosinophils Absolute Auto 0.1 K/mm3 (0-0.3); Eosinophils Percent Auto 1.2 % (0-4.4); Immature Granulocyte Absolute 0.04 K/mm3 (0.00-0.031); Immature Granulocyte Percent A 0.6 % (0-0.5); Lymphocytes Absolute Auto 1.38 K/mm3 (0.9-3.2); Lymphocytes Percent Auto 20.9 % (18.3-44.2); Mean Corpuscular HGB Conc 33.7 g/dl (32-36); Mean Corpuscular Hemoglobin 29.2 pg (26-34); Mean Corpuscular Volume 86.6 fl (80-100); Mean Platelet Volume 9.5 fl (7.4-10.4); Monocytes Absolute Auto 0.4 K/mm3 (0.1-0.6); Monocytes Percent Auto 6.5 % (2.6-8.5); Neutrophils Absolute Auto 4.6 K/mm3 (1.3-6.7); Neutrophils Percent Auto 70.3 % (45.5-73.1); Platelet Count Result 168 k/mm3 (150-375); Red Blood Count 2.16 M/mm3 (4.2-5.4); Red Cell Distribution Width 15.1 % (11.5-14.5); White Blood Count 6.6 K/mm3 (4.5-10.0)
[2021-01-04 06:01] LABS: Anion Gap -2 mmol/L (8-16); Blood Urea Nitrogen 3 mg/dL (7-17); Calcium 6.9 mg/dL (8.4-10.2); Carbon Dioxide 28 mmol/L (22-30); Chloride 108 mmol/L (98-107); Estimated CRCL calculation 139 ml/min; Estimated Glomerular Filt Rate > 60; Glucose 94 mg/dL (65-105); Potassium 3.6 mmol/L (3.4-5.0); Sodium 134 mmol/L (137-145)
[2021-01-04 06:05] LABS: Hematocrit 18.7 % (37.0-47.0); Hemoglobin 6.3 g/dL (12.0-15.0)
[2021-01-04 06:10] LABS: INR 1.3; Prothrombin Time 16.4 Seconds (11.1-14.7)
[2021-01-04 06:11] LABS: Partial Thromboplastin Time 28.3 SECONDS (22.3-36.8)
--- NOTE | 2021-01-04 07:10 | PM.GYNPNOP ---
METAL ENGRAVER - A/P Assessment and plan (1) Postoperative vaginal bleeding: Status: Acute Assessment and Plan: s/p vaginal cuff repair (2) Pelvic abscess: Status: Acute Assessment and Plan: Order placed for CT guided drain placement Continue IV antibiotics Discussed diagnostic laparoscopy if drain not able to be placed or if condition worsens. (3) Vaginal cuff dehiscence: Qualifiers: Encounter type: initial encounter Qualified Code(s): T81.31XA - Disruption of external operation (surgical) wound, not elsewhere classified, initial encounter Code(s): T81.31XA - Disruption of external operation (surgical) wound, not elsewhere classified, initial encounter Status: Acute (4) Electrolyte abnormality: Code(s): E87.8 - Other disorders of electrolyte and fluid balance, not elsewhere classified Status: Acute (5) Blood loss anemia: Code(s): D50.0 - Iron deficiency anemia secondary to blood loss (chronic) Status: Acute Assessment and Plan: transfuse 2 units pRBC Postoperative Procedures: Procedures Operation Date: 01/02/21 17:55 Actual Procedures Side Surgeon p REPAIR OF VAGINAL CUFF DEHISENCNCE Not Applicable Richy Doan MD Time Spent With Patient Time: Total time spent is greater than 50% in coordination of care (as documented) at patient's floor/unit and/or counseling patient: Time with patient: 15 - 25 minutes METAL ENGRAVER- PN:Burak Post-Op Subjective Date/time seen: 01/04/21 07:10 Patient states she is feeling cramping. Has not had a bowel movement. Amenable to trying enema this morning. Vaginal packing removed last night and she does not report any vaginal bleeding. Hb 6.3, amenable to blood transfusion. Exam Resp: Effort & Inspection: normal respiratory effort, able to speak in complete sentences, normal respiratory pattern and not labored GI: Inspection: distended GI Palp: Yes abdominal tenderness, Yes Soft to palpation and Yes Tenderness to palpation present (GI) Percussion: Yes tympanic to percussion METAL ENGRAVER - PN: Obj Data Vital Signs Vital Signs: Vital Signs - 24 hr 01/03/21 07:30 01/03/21 11:40 01/03/21 14:54 Temperature 37.3 C 37.4 C 37.0 C Pulse Rate 111 H 102 H 100 Respiratory Rate 20 20 16 Blood Pressure 98/68 L 111/65 101/60 Pulse Oximetry 99 99 01/03/21 19:36 01/04/21 00:00 01/04/21 05:23 Temperature 37.0 C 37.2 C 36.7 C Pulse Rate 100 100 101 H Respiratory Rate 16 18 16 Blood Pressure 99/53 L 103/55 L 101/55 L Pulse Oximetry 100 100 100 Intake/Output Intake/Output: Intake & Output 01/01/21 01/02/21 01/03/21 01/04/21 23:59 23:59 23:59 23:59 Intake Total 5050 3700 350 Output Total 340 2950 1600 Balance 4710 750 -1250 Meds/Results Medications: Active Medications Generic Name Dose Route Start Last Admin Trade Name Freq PRN Reason Stop Dose Admin Acetaminophen 650 mg 01/03/21 05:49 01/03/21 23:32 Acetaminophen 325 Mg Tablet PO 650 mg Q6H PRN Administration Mild Pain (1-3) or Fever Hydrocodone Bitart/Acetaminophen 1 tab 01/02/21 19:21 Hydrocodone/Acetaminophen (*Crx) 5-325 Mg Tablet PO Q3H PRN Pain Rated 5 or Less Hydrocodone Bitart/Acetaminophen 1 tab 01/02/21 19:21 Hydrocodone/Acetaminophen (*Crx) 10-325 Mg Tablet PO Q3H PRN Pain Rated 6 or Greater Lactated Ringer's 1,000 mls @ 30 mls/hr 01/02/21 18:05 01/03/21 19:07 Lr - Lactated Ringers Iv IV CONT Not Given .Q24H SAIMA Dextrose/Sodium Chloride 1,000 mls @ 125 mls/hr 01/02/21 19:25 01/04/21 05:22 Dextrose 5% Sodium Chloride 0.45% IV CONT Not Given .Q8H SAIMA Ceftriaxone Sodium 2 gm in 100 mls @ 200 mls/hr 01/03/21 21:00 01/03/21 21:30 Rocephin 2 Gm/D5w 100 Ml IVPB Infused Q24H SAIMA Infusion Metronidazole 500 mg in 100 mls @ 100 mls/hr 01/03/21 06:00 01/04/21 05:22 Flagyl 500 Mg/Iso Soln 100 Ml IVPB 100 mls/hr Q8H SAIMA Administration Sodium Chloride 250 mls @ 3
--- NOTE | 2021-01-04 08:32 | PM.IMCN ---
Assessment and Plan Assessment and plan (1) Acute blood loss anemia: Code(s): D62 - Acute posthemorrhagic anemia Status: Acute Assessment and Plan: Patient presented with vaginal bleeding on Xarelto -her hemoglobin on admission was 9.6 which compared to her hemoglobin on discharge last stay, 10.1, was stable -because she was on Xarelto and had evidence of blood loss, she was transfused 2 units initially -her hemoglobin slowly trended down and this morning is 6.3. No chest pain but she is tachycardic -I have called the lab and the nursing staff and the plan is to transfuse 2 units stat and recheck an H&H after -her vaginal bleeding has almost resolved, now she is lightly spotting -there is evidence of a hematoma on CT in the left pericolic gutter and anterior pelvis -will monitor H&H every 6 hours -hold further Eliquis, INR better at 1.3 -hematology consult -patient was taken to the OR and a repair of her vaginal wall dehiscence and there was noted to be bleeding at the vaginal cuff. (2) Vaginal cuff dehiscence: Qualifiers: Encounter type: initial encounter Qualified Code(s): T81.31XA - Disruption of external operation (surgical) wound, not elsewhere classified, initial encounter Code(s): T81.31XA - Disruption of external operation (surgical) wound, not elsewhere classified, initial encounter Status: Acute Assessment and Plan: Repaired 01/02/21 -continue SPA TECHNICIAN recommendations (3) Pelvic abscess: Status: Acute Assessment and Plan: Noted again on imaging -WBC normal, no fevers, pt actually feeling better -no signs of systemic infection -Plan for CT guided abscess drainage -Continue ceftriaxone and flagyl (4) Thrombosis of ovarian vein: Code(s): I82.890 - Acute embolism and thrombosis of other specified veins Status: Acute Assessment and Plan: Nearly resolved on CT, likely post op complication -no personal hx of clotting -Xarelto was started during her last stay but now she has a hematoma and vaginal bleeding so this is now held -Will ask hematology for their recommendations. (5) Hypoalbuminemia: Code(s): E88.09 - Other disorders of plasma-protein metabolism, not elsewhere classified Status: Acute Assessment and Plan: Likely acute inflammatory response - she runs low at times but was normal on 12/19/20 -corrrected calcium 8.5 -no signs of swelling -total protein also low--nutrition? acute phase reactant? was also normal in the past.. UA neg for protein -Monitor outpt when acute illness has resolved Additional Plan Thank you for allowing us to participate in this patient's care. Please contact us for any additional questions, we will follow with you. Supervising physician for this history and physical as Dr. Pitts. HPI Data of Consult Consult date: 01/04/21 Requesting Physician: Richy Doan MD Primary Care Provider: Richy Doan MD Consult Narrative Narrative: Leslie Pope is a 40 year old female with a past medical history of a recent hysterectomy complicated by abscess, who is on xarelto due to post op ovarian vein thrombosis who presented to the emergency room for vaginal bleeding and abdominal cramping starting around 4pm on 01/02/21. She states she was sitting down on the phone with her mom when she had an upsetting conversation and started to cry and when she did, she noted that she started to have a lot of red vaginal bleeding. She had no CP, SOB or lightheadedness with this but started to feel weak with exertion. She denied fevers, chills, nausea, vomiting, leg swelling or headache. 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
[2021-01-04] MEDS: CALCIUM GLUCONATE 1,000 MG/10 ML VIAL 1000 MG IV PUSH (09:06)
--- NOTE | 2021-01-04 12:09 | WPDHPUPDATE1 ---
History and Physical Update Update Date/Time: 01/04/21 12:09 History and Physical has been reviewed, including an updated exam of the patient. Discussed persistent pelvic abscess collection/hematoma with drainage placement to be delayed due to patient needing blood transfusion. Discussed with the patient that at this time, a diagnostic laparoscopy for abscess drainage and to assess for any bleeding sites would be of benefit and not delay intervention. Patient has been NPO since midnight. Will be performed by Dr. Diaz and myself. Risks, benefits, and alternatives have been discussed and questions answered. Patient agrees to proceed with procedure. OR has been notified.
--- NOTE | 2021-01-04 13:06 | PC.NURSE ---
To OR per bed with blood infusing. Pt. on room air. Report given to
--- NOTE | 2021-01-04 13:16 | WPDANESEPPF ---
Anes - Initial Pre Proc Eval Procedure: Operation Date: 01/02/21 17:55 Proposed Procedures p Anterior and Posterior Repair - Richy Doan MD Operation Date: 01/04/21 14:00 Proposed Procedures p Diagnostic Laparoscopy - Susan Diaz MD Date/Time: 01/04/21 13:16 Surgeon: Richy Doan MD Pre Op Diagnosis: post surgerical bleeding Patient Data Age: 40 Gender: F Height: 5 ft 7 in Weight: 81 kg Last Vital Signs Temp 99.2 F 01/04/21 12:55 Pulse 116 H 01/04/21 12:55 Resp 16 01/04/21 12:55 BP 117/70 01/04/21 12:55 Pulse Ox 100 01/04/21 12:55 Allergies Allergy/AdvReac Type Severity Reaction Status Date / Time No Known Allergies Allergy Verified 12/19/20 22:38 Home Medications Medication Instructions Recorded Confirmed Type oxycodone-acetaminophen 1 tablet PO Q6-8H PRN 12/19/20 12/19/20 History hyoscyamine sulfate [Levsin/SL] 0.125 mg SUBLINGUAL QID #30 tablet 12/22/20 Rx metronidazole 500 mg PO BID #28 tablet 12/24/20 12/19/20 Rx rivaroxaban [Xarelto] 15 mg PO BID #42 tablet 12/25/20 Rx rivaroxaban [Xarelto] 20 mg PO DAILY #30 tablet 12/25/20 Rx Laboratory Tests 01/02/21 01/03/21 01/03/21 16:59 14:59 14:59 WBC 12.0 K/mm3 H K/mm3 (4.5-10.0) RBC 2.62 M/mm3 L M/mm3 (4.2-5.4) Hgb 7.8 g/dL L g/dL (12.0-15.0) Hct 22.0 % L % (37.0-47.0) MCV 84.0 fl fl (80-100) MCH 29.8 pg pg (26-34) MCHC 35.5 g/dl g/dl (32-36) RDW 14.5 % % (11.5-14.5) Plt Count 196 k/mm3 k/mm3 (150-375) MPV 9.1 fl fl (7.4-10.4) Immature Gran % (Auto) 1.6 % H % (0-0.5) Neut % (Auto) 74.9 % H % (45.5-73.1) Lymph % (Auto) 15.4 % L % (18.3-44.2) [place] % (Auto) 7.5 % % (2.6-8.5) Eos % (Auto) 0.3 % % (0-4.4) Baso % (Auto) 0.3 % % (0.2-1.2) Lymph # (Auto) 1.85 K/mm3 K/mm3 (0.9-3.2) [place] # (Auto) 0.9 K/mm3 H K/mm3 (0.1-0.6) Eos # (Auto) 0.0 K/mm3 K/mm3 (0-0.3) Baso # (Auto) 0.0 K/mm3 K/mm3 (0.0-0.1) Abs Immat Gran (auto) 0.19 K/mm3 H K/mm3 (0.00-0.031) Absolute Neuts (auto) 9.0 K/mm3 H K/mm3 (1.3-6.7) Absolute Nucleated RBC 0.0 K/mm3 K/mm3 (0.0-0.012) Nucleated RBC % 0.0 % % (0.0-0.2) PT INR APTT Sodium 130 mmol/L L mmol/L (137-145) Potassium 3.8 mmol/L mmol/L (3.4-5.0) Chloride 108 mmol/L H mmol/L (98-107) Carbon Dioxide 20 mmol/L L mmol/L (22-30) Anion Gap 2 mmol/L L mmol/L (8-16) BUN 9 mg/dL mg/dL (7-17) Creatinine 0.50 mg/dL L mg/dL (0.7-1.0) Estim Creat Clear Calc 139 ml/min ml/min Estimated GFR > 60 (59 - ) Glucose 117 mg/dL H mg/dL (65-105) Calcium 6.9 mg/dL L mg/dL (8.4-10.2) Total Bilirubin 0.2 mg/dL mg/dL (0.2-1.3) AST 18 U/L U/L (14-36) ALT 12 U/L U/L (4-35) Alkaline Phosphatase 34 U/L L U/L (38-126) Total Protein 4.0 g/dL L g/dL (6.3-8.2) Albumin 2.1 g/dL L g/dL (3.5-5.1) Blood Type O Negative Antibody Screen Negative Crossmatch See Detail 01/04/21 01/04/21 01/04/21 05:34 05:34 05:34 WBC 6.6 K/mm3 K/mm3 (4.5-10.0) RBC 2.16 M/mm3 L M/mm3 (4.2-5.4) Hgb 6.3 g/dL L* g/dL (12.0-15.0) Hct 18.7 % L* % (37.0-47.0) MCV 86.6 fl fl (80-100) MCH 29.2 pg pg (26-34) MCHC 33.7 g/dl g/dl (32-36) RDW 15.1 % H % (11.5-14.5) Plt Count 168 k/mm3 k/mm3 (150-375) MPV 9.5 fl fl (7.4-10.4) Immature Gran % (Auto) 0.6 % H % (0-0.5) Neut % (Auto) 70.3 % % (45.5-73.1) Lymph % (Auto) 20.9 % % (18.3-44.2) [place] % (Auto
--- NOTE | 2021-01-04 13:50 | SUR.PREOP ---
Vitals at 1210 by Trey Prajapati rn in the TAR was entered in by mistake by the time only. The time should have been entered for 1310.
[2021-01-04] MEDS: LACTATED RINGERS 1,000 ML 30 ML IV CONT (13:57)
--- NOTE | 2021-01-04 14:01 | SUR.PREOP ---
1340; PT STATES SHE HAS BEEN HAVING HER TEMP TAKEN ORALLY ON THE FLOOR. TEMPORAL 101.6, ORAL 99.5.
--- NOTE | 2021-01-04 14:03 | SUR.PREOP ---
1345; SPOKE TO FLOOR RICHARD SPENCE, SHE STATES PT'S TEMP WAS 99.5 ORALLY FOR HER TODAY
--- NOTE | 2021-01-04 14:14 | SUR.PREOP ---
SPOKE TO DR ANAYA, NO ANTIBIOTICS NEEDED. PT ON ROUTINE ANTIBIOTICS. ALSO NOTIFIED OF DISCREPANCY IN TEMPS, TEMPORAL HIGHER THAN ORAL.
[2021-01-04] MEDS: SOD HYALURONATE/CARBOXYMETHYLCELLULOSE 5X6 1 EACH TOPICAL (15:37)
--- NOTE | 2021-01-04 15:40 | SUR.OPER ---
See Anesthesia charting on TAR tab for blood transfusion vital signs
--- NOTE | 2021-01-04 16:17 | P.OP_ITS ---
Procedure Note - Detailed Date of procedure: 01/04/21 Pre-op diagnosis: post surgerical bleeding hematoma anemia post-operative abscess Post-op diagnosis: same Procedure performed: diagnostic laparoscopy, removal of hematoma Description of procedure: Patient was taken the operating room where she was placed under general endotracheal anesthesia without complications. She was then prepped and draped in the dorsal lithotomy position with her legs in low Bear stirrups and her arms tucked at her sides. Padding and a belt were placed over her chest to prevent slipping. A time-out was performed and no preoperative antibiotics were indicated as she was already receiving antibiotics for the postoperative abscess. OG placement was confirmed. Using a scalpel, a 5 mm incision was made at alonzo's point the a 5 mm trocar was placed under direct visualization without complications. Once intra-abdominal placement was confirmed the abdomen was insufflated with carbon dioxide gas. Hemoperitoneum was identified and a full abdominal survey showed blood in all quadrants of the abdomen, medium sized clots in the anterior pelvic and near the descending colon. Patient was placed in steep Trendelenburg. Additional 5 mm ports were placed in the right and left lower quadrants under direct visualization without complications. In the pelvis, the bowel was irrigated using normal saline and the clots were suctioned free. The omentum was noted to be adhered to the anterior abdominal wall but easily taken down using gentle traction and good hemostasis was noted. The small bowel was attempted to be placed within the upper abdomen using bowel graspers and a blunt probe, however, it was noted that they were adhered and the likely area of the pelvic abscess which was not easily accessed. Plan was made to avoid trying to separate the bowel as the tissues were noted to be friable with multiple adhesions and there was concern for damaging the bowel if attempted. Further irrigation occurred in the pelvis trying to remove all hemoperitoneum, approximately 2 L was used. The upper abdomen was then examined where significant amount of the irrigation was noted. The hemoperitoneum with irrigation was removed in total, plus approximately 100-150cc of blood and clots. The patient was made flat where additional irrigation was noted to pool in the anterior pelvis, which was also suctioned out. Good hemostasis was noted. Patient was once again placed in Trendelenburg and the pelvis was inspected and no pooling or active bleeding was noted. Additional adhesions from the ascending colon and omentum were noted in the right lower quadrant and were taken down using the ligasure. A solution of normal saline and Seprafilm were then sprayed over the friable areas to prevent adhesions. All instruments were removed from the abdomen the insufflation was released. All air was moved removed from the abdomen. The trocars were then removed. The 3 laparoscopic incisions were infiltrated using approximately 10mL of 1% xylocaine without epinephrine. The incisions were then reapproximated in a subcuticular fashion using 4-0 Monocryl and covered with Dermabond. She was awoken from general anesthesia without complications and taken to recovery in stable condition. Sponge, lap, instrument, needle counts were correct at the end of the procedure. She tolerated the procedure well. [facility] Sur[facility]: Susan Diaz MD Continuous Mining Machine Coal Miner: Dr. Marcie Lundy Estimated blood loss (mL): 10 IV fluids (mL): 700 Urine output (mL): 350 Drains: No Packing: No Pathology: none sent Complications: No immediate complications Condition: stable Disposition: floor
--- NOTE | 2021-01-04 16:58 | PDONCCN ---
HPI - Date of Consult Date/Time: 01/04/21 16:58 Requesting Physician: Rihcy Doan MD Primary Care Provider: Richy Doan MD - Consult Narrative Reason for consult: Hypercoagulable state Narrative: Leslie Pope is a 40 year old female with history of recent hysterectomy done on December 14 due to carcinoma situ done at [facility]. Postoperatively she developed abscess and drain was placed. She was also diagnosed with venous thrombosis in the pelvic vessels and was started on Xarelto and was discharged home. She now came back to the hospital with sudden onset of vaginal bleeding. Xarelto was discontinued. On January 02 patient had diagnostic laparoscopy, removal of hematoma. She denies any melena hematochezia. She has no prior history of thromboembolic events. There is no family history of blood clotting disorder in the immediate family. She is quite active in her lifestyle. Denies any other complaint other than being tired and fatigued today. 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 History of placenta previa Severe sepsis Surgical History: Surgical History (Last Updated 01/04/21 @ 09:30 by Mikala Lord PA-C) History of Status post hysterectomy Family History: Family History (Last Reviewed 01/04/21 @ 08:41 by Mikala Lord PA-C) Father Diabetes mellitus Congestive heart failure Mother Hypertension - Social History Social History: Social History (Last Updated 01/04/21 @ 09:31 by Mikala Lord PA-C) Gender Identity: Gender identity (if verbalized by the patient): Female Sexual Orientation: Sexual Orientation (if Verbalized by the Patient): Straight or Heterosexual Alcohol Use: Alcohol intake: former Substance Use: Substance use: never Substance use type: does not use Others: Spiritual care concerns: No Smoking Status: Smoking status: Never smoker Second hand tobacco smoke exposure: No Meds Home Medications Medication Instructions Recorded Confirmed Type oxycodone-acetaminophen 1 tablet PO Q6-8H PRN 12/19/20 12/19/20 History hyoscyamine sulfate [Levsin/SL] 0.125 mg SUBLINGUAL QID #30 tablet 12/22/20 Rx metronidazole 500 mg PO BID #28 tablet 12/24/20 12/19/20 Rx rivaroxaban [Xarelto] 15 mg PO BID #42 tablet 12/25/20 Rx rivaroxaban [Xarelto] 20 mg PO DAILY #30 tablet 12/25/20 Rx Allergies Allergy/AdvReac Type Severity Reaction Status Date / Time No Known Allergies Allergy Verified 12/19/20 22:38 Results - Labs CBC & Chem 7: 01/04/21 05:34 01/04/21 05:34 Labs: Short CBC 01/04/21 Range/Units 05:34 WBC 6.6 (4.5-10.0) K/mm3 Hgb 6.3 L* (12.0-15.0) g/dL Hct 18.7 L* (37.0-47.0) % Plt Count 168 (150-375) k/mm3 BMP 01/04/21 05:34 Sodium 134 L Potassium 3.6 Chloride 108 H Carbon Dioxide 28 BUN 3 L D Creatinine 0.50 L Glucose 94 Calcium 6.9 L Assessment and Plan - Additional Plan Hypercoagulable state. Patient was diagnosed to have pelvic vein thrombosis after the recent hysterectomy done on December 14 for carcinoma situ. She postoperatively developed abscess and drain was placed. She came into the hospital now with sudden onset of vaginal bleeding and underwent diagnostic laparoscopy, removal of hematoma. Xarelto has been discontinued. CT scan showed moderate volume of ascites with hematoma in the left periaortic gutter and anterior pelvis. There was persistent pelvic abscess but decrease in size measuring up to 8 cm. Labs noted she was her anemia is secondary to recent bleeding as well as anemia of inflammation infection with abscess. She receiving bl
--- NOTE | 2021-01-04 17:45 | PC.NURSE ---
Addendum entered by Gabriela Glasgow RN 01/04/21 18:34: Returned from OR per bed. Report received from Trey Original Note: Returned from OR per bed. Report received from [ ].
[2021-01-04] MEDS: DEXTROSE 5%/0.45% SOD CHL 1,000 ML 125 ML IV CONT (18:18)
[2021-01-04 19:15] LABS: Lactate Dehydrogenase 364 U/L (313-618)
[2021-01-04 19:35] LABS: Fibrinogen 264 mg/dl (215-510)
[2021-01-04 20:22] LABS: Folic Acid 12.7 ng/mL (2.76->20)
[2021-01-04 20:42] LABS: Iron 119 ug/dL (37-170)
[2021-01-04 20:51] LABS: Percent Iron Saturation 52 % (20-50)
[2021-01-04 21:38] LABS: Hemoglobin 9.3 g/dL (12.0-15.0)
[2021-01-05 02:00] VITALS: BP 108/69; PULSE 92; RESP 16; TEMP 37.1; O2SAT 98
[2021-01-05] MEDS: DEXTROSE 5%/0.45% SOD CHL 1,000 ML 125 ML IV CONT (04:09)
[2021-01-05] MEDS: ACETAMINOPHEN 325 MG TABLET 650 MG PO ×2 (04:12→12:51)
[2021-01-05 05:40] VITALS: BP 112/63; PULSE 99; RESP 16; TEMP 37.1; O2SAT 99
[2021-01-05] MEDS: metroNIDAZOLE 500 MG/ISO 100ML 500 MG/100 ML BAG 100 MG IVPB ×3 (05:57→20:31)
[2021-01-05 06:01] LABS: Basophils Percent Auto 0.4 % (0.2-1.2); Eosinophils Percent Auto 0.3 % (0-4.4); Hematocrit 24.2 % (37.0-47.0); Hemoglobin 8.2 g/dL (12.0-15.0); Immature Granulocyte Absolute 0.04 K/mm3 (0.00-0.031); Immature Granulocyte Percent A 0.5 % (0-0.5); Lymphocytes Absolute Auto 1.05 K/mm3 (0.9-3.2); Lymphocytes Percent Auto 14.1 % (18.3-44.2); Mean Corpuscular HGB Conc 33.9 g/dl (32-36); Mean Corpuscular Hemoglobin 29.5 pg (26-34); Mean Corpuscular Volume 87.1 fl (80-100); Monocytes Absolute Auto 0.6 K/mm3 (0.1-0.6); Monocytes Percent Auto 7.8 % (2.6-8.5); Neutrophils Absolute Auto 5.8 K/mm3 (1.3-6.7); Neutrophils Percent Auto 76.9 % (45.5-73.1); Platelet Count Result 197 k/mm3 (150-375); Red Blood Count 2.78 M/mm3 (4.2-5.4); Red Cell Distribution Width 14.6 % (11.5-14.5); White Blood Count 7.5 K/mm3 (4.5-10.0)
[2021-01-05 06:03] LABS: Anion Gap 0 mmol/L (8-16); Blood Urea Nitrogen 2 mg/dL (7-17); Calcium 7.6 mg/dL (8.4-10.2); Carbon Dioxide 29 mmol/L (22-30); Chloride 106 mmol/L (98-107); Estimated CRCL calculation 169 ml/min; Estimated Glomerular Filt Rate > 60; Glucose 122 mg/dL (65-105); Potassium 3.3 mmol/L (3.4-5.0); Sodium 135 mmol/L (137-145)
[2021-01-05 06:17] VITALS: O2SAT 97
[2021-01-05] MEDS: HYDROmorphone HCL INJ (*CRX) 1 MG/ML SYR 0.5 MG IV PUSH (07:22)
--- NOTE | 2021-01-05 08:04 | WPDANESPN ---
Anes - Prog Note Post-Op Date/Time: 01/05/21 08:04 Cardiovascular status: normal Respiratory status: normal Airway patency: baseline Mental status: baseline Post-Op hydration status: normal Vital Signs: Last Vital Signs Temp 37.1 C 01/05/21 05:40 Pulse 99 01/05/21 05:40 Resp 16 01/05/21 05:40 BP 112/63 01/05/21 05:40 Pulse Ox 97 01/05/21 06:17 Pain Score (VAS): 4 I/O: Intake & Output 01/04/21 01/05/21 01/05/21 23:59 07:59 15:59 Intake Total 750 1100 Output Total 430 2800 Balance 320 -1700 Laboratory Tests 01/05/21 05:33 01/05/21 05:33 01/02/21 01/04/21 01/04/21 16:59 18:38 18:38 WBC RBC Hgb Hct MCV MCH MCHC RDW Plt Count MPV Immature Gran % (Auto) Neut % (Auto) Lymph % (Auto) [place] % (Auto) Eos % (Auto) Baso % (Auto) Lymph # (Auto) [place] # (Auto) Eos # (Auto) Baso # (Auto) Abs Immat Gran (auto) Absolute Neuts (auto) Absolute Nucleated RBC Nucleated RBC % Fibrinogen 264 Sodium Potassium Chloride Carbon Dioxide Anion Gap BUN Creatinine Estim Creat Clear Calc Estimated GFR Glucose Calcium Iron 119 TIBC 228 L % Saturation 52 H Lactate Dehydrogenase Vitamin B12 Folate Blood Type O Negative Antibody Screen Negative Crossmatch See Detail 01/04/21 01/04/21 01/05/21 18:38 21:14 05:33 WBC 7.5 RBC 2.78 L Hgb 9.3 L D 8.2 L Hct 27.0 L 24.2 L MCV 87.1 MCH 29.5 MCHC 33.9 RDW 14.6 H Plt Count 197 MPV 9.0 Immature Gran % (Auto) 0.5 Neut % (Auto) 76.9 H Lymph % (Auto) 14.1 L [place] % (Auto) 7.8 Eos % (Auto) 0.3 Baso % (Auto) 0.4 Lymph # (Auto) 1.05 [place] # (Auto) 0.6 Eos # (Auto) 0.0 Baso # (Auto) 0.0 Abs Immat Gran (auto) 0.04 H Absolute Neuts (auto) 5.8 Absolute Nucleated RBC 0.0 Nucleated RBC % 0.0 Fibrinogen Sodium Potassium Chloride Carbon Dioxide Anion Gap BUN Creatinine Estim Creat Clear Calc Estimated GFR Glucose Calcium Iron TIBC % Saturation Lactate Dehydrogenase 364 Vitamin B12 478.0 Folate 12.7 Blood Type Antibody Screen Crossmatch 01/05/21 05:33 WBC RBC Hgb Hct MCV MCH MCHC RDW Plt Count MPV Immature Gran % (Auto) Neut % (Auto) Lymph % (Auto) [place] % (Auto) Eos % (Auto) Baso % (Auto) Lymph # (Auto) [place] # (Auto) Eos # (Auto) Baso # (Auto) Abs Immat Gran (auto) Absolute Neuts (auto) Absolute Nucleated RBC Nucleated RBC % Fibrinogen Sodium 135 L Potassium 3.3 L Chloride 106 Carbon Dioxide 29 Anion Gap 0 L BUN 2 L Creatinine 0.40 L Estim Creat Clear Calc 169 Estimated GFR > 60 Glucose 122 H Calcium 7.6 L Iron TIBC % Saturation Lactate Dehydrogenase Vitamin B12 Folate Blood Type Antibody Screen Crossmatch Post-procedural complaints: none Patient Feedback: Patient satisfied with anesthetic care.
[2021-01-05] MEDS: POTASSIUM CHLORIDE 20 MEQ TABLET PO (09:36)
[2021-01-05 10:00] VITALS: BP 112/63; PULSE 99; RESP 16; TEMP 36.8; O2SAT 100
--- NOTE | 2021-01-05 11:19 | PM.IMPN ---
Progress Note: A&P Assessment and Plan (1) Acute blood loss anemia: Code(s): D62 - Acute posthemorrhagic anemia Status: Acute Assessment and Plan: Patient presented with vaginal bleeding on Xarelto -During her stay her hgb dropped down to 6.3 and received 4 units throughout her stay so far -She went to the OR 01/04 for hematoma removal and washout -hgb stable today with no further bleeding 8.2 -continue to monitor hgb daily -no plans to restart eliquis. spoke with SENIOR PL SQL DEVELOPER and plan to start aspirin and monitor her while she is here -hematology consult reviewed, follow up with then outpt -patient was taken to the OR 01/02/21 for repair of her vaginal wall dehiscence and there was noted to be bleeding at the vaginal cuff. (2) Vaginal cuff dehiscence: Qualifiers: Encounter type: initial encounter Qualified Code(s): T81.31XA - Disruption of external operation (surgical) wound, not elsewhere classified, initial encounter Code(s): T81.31XA - Disruption of external operation (surgical) wound, not elsewhere classified, initial encounter Status: Acute Assessment and Plan: Repaired 01/02/21 -continue SENIOR PL SQL DEVELOPER recommendations (3) Pelvic abscess: Status: Acute Assessment and Plan: Noted again on imaging -WBC normal, no fevers, pt actually feeling better -no signs of systemic infection -since it is smaller and no signs of systemic infection, no plans for drainage -Continue ceftriaxone and flagyl -will need outpt abx at discharge (4) Thrombosis of ovarian vein: Code(s): I82.890 - Acute embolism and thrombosis of other specified veins Status: Acute Assessment and Plan: Nearly resolved on CT, likely post op complication -no personal hx of clotting -Xarelto was started during her last stay but now she has a hematoma and vaginal bleeding so this is now stopped -Dr Carrington is going to follow up with her with imaging in 4-6 weeks (5) Hypoalbuminemia: Code(s): E88.09 - Other disorders of plasma-protein metabolism, not elsewhere classified Status: Acute Assessment and Plan: likely acute inflammatory response - she runs low at times but was normal on 12/19/20 -corrrected calcium normal as of yesterday -recheck with tomorrows labs -no signs of swelling -total protein also low--nutrition? acute phase reactant? was also normal in the past.. UA neg for protein -Monitor outpt when acute illness has resolved Additional Plan Thank you for allowing us to participate in this patient's care. Please contact us for any additional questions, we will follow with you. Supervising physician for this history and physical as Dr. Pitts. Time Spent With Patient Time with patient: 25 - 35 minutes Subjective Date/time seen: 01/05/21 11:19 Interval history: Pt is a 40-year-old female here for vaginal cuff dehiscence with blood loss here patient was seen today and is doing well. Pt denies nausea, vomiting, fevers, chills, constipation, diarrhea, chest pain, sob, lightheadedness, or abdominal pain. She is eating and drinking well and has not had any further vaginal bleeding. Review of Systems Review of Systems: All systems reviewed & are unremarkable except as noted in HPI and below Exam Narrative: Exam Narrative: General:Well developed well nourished patient HEENT: Normocephalic, atraumatic, PERRL, Sclerae anicteric, oral mucosa moist. Neck: Supple Resp: CTA Heart: slightly tachycardic 100 on exam Abd: Soft, nontender. No pain to palpation. Positive bowel sounds Skin: Warm and dry Extremities: No swelling, erythema or pain to palpation Neuro: Alert and Oriented x4 . CN 2-12 intact. No focal neurological deficits. SENIOR PL SQL DEVELOPER: deferred Objective Data Vital Signs Vital Signs: Vital Signs - 24 hr 01/04/21 11:30 01/04/21 12:00 01/04/21 12:10 Temperature 98.6 F 98.9 F 102.2 F H Pulse Rate 113 H 116 H 116 H Respiratory Rate 16 18 16 Blood Pre
--- NOTE | 2021-01-05 12:49 | PM.GYNPNOP ---
PNEUMATIC TESTER - A/P Assessment and plan (1) Blood loss anemia: Code(s): D50.0 - Iron deficiency anemia secondary to blood loss (chronic) Status: Acute Assessment and Plan: s/p transfusion 4 units no active bleeding noted on laparoscopy (2) Postoperative vaginal bleeding: Status: Acute (3) Pelvic abscess: Status: Acute Assessment and Plan: s/p laparoscopy and washout (4) Vaginal cuff dehiscence: Qualifiers: Encounter type: initial encounter Qualified Code(s): T81.31XA - Disruption of external operation (surgical) wound, not elsewhere classified, initial encounter Code(s): T81.31XA - Disruption of external operation (surgical) wound, not elsewhere classified, initial encounter Status: Acute Postoperative Procedures: Procedures Operation Date: 01/02/21 17:55 Actual Procedures Side Surgeon p REPAIR OF VAGINAL CUFF DEHISENCNCE Not Applicable Richy Doan MD Operation Date: 01/04/21 14:00 Actual Procedures Side Surgeon p Diagnostic Laparoscopy with evacuation of hematoma Susan Diaz MD Time Spent With Patient Time: Total time spent is greater than 50% in coordination of care (as documented) at patient's floor/unit and/or counseling patient: Time with patient: 15 - 25 minutes PNEUMATIC TESTER- PN:Subj Post-Op Subjective Date/time seen: 01/05/21 12:49 Interval history: s/p diagnostic laparoscopy, drainage of hematoma and washout on 01/04. Patient states she is feeling better. Still having occasional pain with movement, but states that she feels like things will be ok. She is in good spirits. Tolerating diet. Passing flatus and having bowel movements. Exam Resp: Effort & Inspection: normal respiratory effort, able to speak in complete sentences and not labored Cardio: Rate: regular rate Rhythm: regular rhythm GI: Inspection: normal to inspection GI Palp: Yes abdominal tenderness (postsurgical tenderness) and Yes Soft to palpation Percussion: Yes normal to percussion Psych: Appearance: grossly normal Mental Status: mental status grossly normal Speech and movement: Normal speech and movement present Affect: normal affect Attitude: cooperative Thought process: Normal thought process present Thought content: Yes Normal thought content present PNEUMATIC TESTER - PN: Obj Data Vital Signs Vital Signs: Vital Signs - 24 hr 01/04/21 12:55 01/04/21 13:10 01/04/21 13:25 Temperature 37.3 C 39.0 C H 38.7 C H Pulse Rate 116 H 116 H 116 H Respiratory Rate 16 16 16 Blood Pressure 117/70 110/64 109/66 Pulse Oximetry 100 100 100 01/04/21 13:40 01/04/21 14:40 01/04/21 14:55 Temperature 38.7 C H 37 C 36.9 C Pulse Rate 116 H 107 H 100 Respiratory Rate 16 12 16 Blood Pressure 109/66 90/54 L 104/65 Pulse Oximetry 100 100 100 01/04/21 16:22 01/04/21 16:27 01/04/21 16:35 Temperature 37.2 C 37.2 C Pulse Rate 104 H 104 H 97 Respiratory Rate 13 13 16 Blood Pressure 99/59 L 99/59 L 111/73 Pulse Oximetry 100 100 100 01/04/21 16:45 01/04/21 17:00 01/04/21 17:15 Temperature Pulse Rate 91 96 97 Respiratory Rate 14 16 16 Blood Pressure 115/77 112/78 117/80 Pulse Oximetry 100 97 96 01/04/21 17:30 01/04/21 17:38 01/04/21 18:00 Temperature 36.8 C Pulse Rate 86 98 96 Respiratory Rate 16 15 16 Blood Pressure 111/78 112/76 113/75 Pulse Oximetry 95 95 97 01/04/21 18:15 01/04/21 18:45 01/04/21 21:40 Temperature 36.8 C 36.9 C 36.9 C Pulse Rate 94 95 76 Respiratory Rate 16 16 15 Blood Pressure 115/77 108/67 105/64 Pulse Oximetry 97 98 95 01/05/21 02:00 01/05/21 05:40 01/05/21 06:17 Temperature 37.1 C 37.1 C Pulse Rate 92 99 Respiratory Rate 16 16 Blood Pressure 108/69 112/63 Pulse Oximetry 98 99 97 01/05/21 10:00 Temperature 36.8 C Pulse Rate 99 Respiratory Rate 16 Blood Pressure 112/63 Pulse Oximetry 100 Intake/Output Intake/Output: Intake & Output 01/02/21 01/03/21 01/04/21 01/05/21 23:59 23:59 23:59 23:59 Intake Total 5050
[2021-01-05] MEDS: ASPIRIN 81 MG ENTERIC TABLET PO (12:51)
[2021-01-05 14:00] VITALS: BP 121/74; PULSE 91; RESP 16; TEMP 37.1; O2SAT 100
[2021-01-05 21:03] VITALS: BP 137/87; PULSE 91; RESP 18; TEMP 36.6; O2SAT 100
[2021-01-06] MEDS: HYDROmorphone HCL INJ (*CRX) 1 MG/ML SYR 0.5 MG IV PUSH (03:39)
[2021-01-06 05:30] VITALS: BP 125/80; PULSE 90; RESP 18; TEMP 36.8; O2SAT 98
[2021-01-06] MEDS: metroNIDAZOLE 500 MG/ISO 100ML 500 MG/100 ML BAG 100 MG IVPB (05:43)
[2021-01-06 06:06] LABS: Basophils Percent Auto 0.7 % (0.2-1.2); Eosinophils Absolute Auto 0.1 K/mm3 (0-0.3); Eosinophils Percent Auto 3.3 % (0-4.4); Hematocrit 25.1 % (37.0-47.0); Hemoglobin 8.4 g/dL (12.0-15.0); Immature Granulocyte Absolute 0.01 K/mm3 (0.00-0.031); Immature Granulocyte Percent A 0.2 % (0-0.5); Lymphocytes Absolute Auto 1.31 K/mm3 (0.9-3.2); Lymphocytes Percent Auto 31.2 % (18.3-44.2); Mean Corpuscular HGB Conc 33.5 g/dl (32-36); Mean Corpuscular Volume 89.6 fl (80-100); Mean Platelet Volume 8.9 fl (7.4-10.4); Monocytes Absolute Auto 0.3 K/mm3 (0.1-0.6); Monocytes Percent Auto 7.9 % (2.6-8.5); Neutrophils Absolute Auto 2.4 K/mm3 (1.3-6.7); Neutrophils Percent Auto 56.7 % (45.5-73.1); Platelet Count Result 195 k/mm3 (150-375); Red Cell Distribution Width 14.8 % (11.5-14.5); White Blood Count 4.2 K/mm3 (4.5-10.0)
[2021-01-06 06:08] LABS: Alanine Aminotransferase 11 U/L (4-35); Albumin Level 2.3 g/dL (3.5-5.1); Alkaline Phosphatase 43 U/L (38-126); Aspartate Amino Transferase 30 U/L (14-36); Bilirubin,Total 0.2 mg/dL (0.2-1.3)
[2021-01-06 06:13] LABS: Anion Gap 1 mmol/L (8-16); Blood Urea Nitrogen 4 mg/dL (7-17); Calcium 7.2 mg/dL (8.4-10.2); Carbon Dioxide 31 mmol/L (22-30); Chloride 104 mmol/L (98-107); Estimated CRCL calculation 118 ml/min; Estimated Glomerular Filt Rate > 60; Glucose 89 mg/dL (65-105); Sodium 136 mmol/L (137-145)
[2021-01-06] MEDS: ASPIRIN 81 MG ENTERIC TABLET PO (07:49)
[2021-01-06] MEDS: ACETAMINOPHEN 325 MG TABLET 650 MG PO (07:49)
[2021-01-06] MEDS: POTASSIUM CHLORIDE 20 MEQ TABLET 40 MEQ PO (09:38)
--- NOTE | 2021-01-06 10:28 | PM.IMPN ---
Progress Note: A&P Assessment and Plan (1) Acute blood loss anemia: Code(s): D62 - Acute posthemorrhagic anemia Status: Acute Assessment and Plan: Patient presented with vaginal bleeding on Xarelto -During her stay her hgb dropped down to 6.3 and received 4 units throughout her stay so far -hemoglobin completely stable today at 8.4 -She went to the OR 01/04 for hematoma removal and washout -continue to monitor hgb daily while hospitalized -no plans to restart eliquis. spoke with BUFFING WHEEL INSPECTOR and aspirin started -hematology consult reviewed, follow up with then outpt -patient was taken to the OR 01/02/21 for repair of her vaginal wall dehiscence and there was noted to be bleeding at the vaginal cuff. (2) Vaginal cuff dehiscence: Qualifiers: Encounter type: initial encounter Qualified Code(s): T81.31XA - Disruption of external operation (surgical) wound, not elsewhere classified, initial encounter Code(s): T81.31XA - Disruption of external operation (surgical) wound, not elsewhere classified, initial encounter Status: Acute Assessment and Plan: Repaired 01/02/21 -continue BUFFING WHEEL INSPECTOR recommendations (3) Pelvic abscess: Status: Acute Assessment and Plan: Noted again on imaging -WBC normal, no fevers, pt actually feeling better -no signs of systemic infection -since it is smaller and no signs of systemic infection, no plans for drainage -Continue ceftriaxone and flagyl -will need outpt abx at discharge (4) Thrombosis of ovarian vein: Code(s): I82.890 - Acute embolism and thrombosis of other specified veins Status: Acute Assessment and Plan: Nearly resolved on CT, likely post op complication -no personal hx of clotting -Xarelto was started during her last stay but now she has a hematoma and vaginal bleeding so this is now stopped -Dr Carrington is going to follow up with her with imaging in 4-6 weeks (5) Hypoalbuminemia: Code(s): E88.09 - Other disorders of plasma-protein metabolism, not elsewhere classified Status: Acute Assessment and Plan: likely acute inflammatory response, improving - she runs low at times but was normal on 12/19/20 -no signs of swelling -total protein also low--nutrition? acute phase reactant? was also normal in the past.. UA neg for protein -Monitor outpt when acute illness has resolved Additional Plan Thank you for allowing us to participate in this patient's care. Please contact us for any additional questions, we will follow with you. Supervising physician for this history and physical as Dr. Pitts. Subjective Date/time seen: 01/06/21 10:28 Interval history: Pt is a 40-year-old female here for vaginal cuff dehiscence with blood loss here patient was seen today and is doing well. Pt denies nausea, vomiting, fevers, chills, constipation, chest pain, sob, lightheadedness, or abdominal pain. She is eating and drinking well and has had just very mild spotting on her pad. She states yesterday she had significant pain in her abdomen after urinating 1 time which sounds consistent with the bladder spasm. She is urinating well now. She has had and some soft stool. Exam Narrative: Exam Narrative: General:Well developed well nourished patient HEENT: Normocephalic, atraumatic, PERRL, Sclerae anicteric, oral mucosa moist. Neck: Supple Resp: CTA Heart: RRR today Abd: Soft, nontender. No pain to palpation. Positive bowel sounds. incision sites clean and dry without bleeding, discharge or dehiscence. Skin: Warm and dry Extremities: No swelling, erythema or pain to palpation Neuro: Alert and Oriented x4 . CN 2-12 intact. No focal neurological deficits. BUFFING WHEEL INSPECTOR: deferred Objective Data Vital Signs Vital Signs: Vital Signs - 24 hr 01/05/21 14:00 01/05/21 21:03 01/06/21 05:30 Temperature 98.8 F 97.8 F 98.3 F Pulse Rate 91 91 90 Respiratory Rate 16 18 18 Blood Pressure 121/74 137/87 125/80 Pulse Oximet
--- NOTE | 2021-01-06 11:48 | PM.GYNPNOP ---
DRY ICE MAKER - A/P Assessment and plan (1) Acute blood loss anemia: Code(s): D62 - Acute posthemorrhagic anemia Status: Acute Assessment and Plan: - H/H stable; will repeat in AM - Will start iron (2) Postoperative vaginal bleeding: Status: Acute Assessment and Plan: - stable (3) Pelvic abscess: Status: Acute Assessment and Plan: - decreasing size on CT - Has been on ceftriaxone and metronidazole; will stop today - Will start PO meds; bactrim DS 1 tab POD BID + metronidazole 500mg q8h PO - Tylenol and ibuprofen scheduled for pain control - bowel regimen - regular diet; SLIV - possible d/c home tomorrow if labs stable and pain controlled (4) Vaginal cuff dehiscence: Qualifiers: Encounter type: initial encounter Qualified Code(s): T81.31XA - Disruption of external operation (surgical) wound, not elsewhere classified, initial encounter Code(s): T81.31XA - Disruption of external operation (surgical) wound, not elsewhere classified, initial encounter Status: Acute Assessment and Plan: - POD #4, stable (5) Thrombosis of ovarian vein: Code(s): I82.890 - Acute embolism and thrombosis of other specified veins Status: Acute Assessment and Plan: - was previously on xarelto; held - started on baby aspirin daily - pt to f/u w/ heme outpatient in 4-6wks; CT scan reimaging to be performed outpatient (6) Status post hysterectomy: Code(s): Z90.710 - Acquired absence of both cervix and uterus Status: Acute Postoperative Procedures: Procedures Operation Date: 01/02/21 17:55 Actual Procedures Side Surgeon p REPAIR OF VAGINAL CUFF DEHISENCNCE Not Applicable Richy Doan MD Operation Date: 01/04/21 14:00 Actual Procedures Side Surgeon p Diagnostic Laparoscopy with evacuation of hematoma Susan Diaz MD Time Spent With Patient Time: Total time spent is greater than 50% in coordination of care (as documented) at patient's floor/unit and/or counseling patient: Time with patient: 15 - 25 minutes DRY ICE MAKER- PN:Subj Post-Op Subjective Date/time seen: 01/06/21 11:48 Interval history: Leslie is a 40-year-old female s/p RA-[facility] on 12/14/20, readmitted for pelvic abscess complicated by ovarian vein thrombosis. Readmitted this admission with active vaginal bleeding and anemia due to vaginal cuff dehiscence s/p vaginal cuff closure (POD# 4). Repeat CT showed decreasing size of the pelvic abscess but new hematoma. She is now s/p diagnostic LSC with evacuation of hematoma (POD # 2). She was seen today and is doing well. Her abdominal pain is doing much better; needed dilaudid once after voiding and having a bladder spasm. She is eating and drinking regular diet and has had very mild spotting, no vaginal discharge or itching. She is urinating without issue. She has had soft bowel movements. She has ambulated in her room. Pt denies nausea, vomiting, fevers, chills, constipation, chest pain, sob, lightheadedness, headache or vision changes. Review of Systems Review of Systems: All systems reviewed & are unremarkable except as noted in HPI and below (HPI) Exam Const: General: cooperative, healthy appearing, comfortable and no acute distress Resp: Effort & Inspection: normal respiratory effort and able to speak in complete sentences Auscultation: clear to auscultation bilaterally Cardio: Rate: regular rate GI: Inspection: non-distended and incision (laparoscopic incisions healing well; 3 new covered w/ dermabond) GI Palp: No abdominal tenderness and Yes Soft to palpation : Other: no bleeding Skin: General skin exam: normal color Neuro: General: patient oriented x3 Psych: Appearance: grossly normal Affect: normal affect Attitude: cooperative DRY ICE MAKER - PN: Obj Data Vital Signs Vital Signs: Vital Signs - 24 hr 01/05/21 14:00 01/05/21 21:03 01/06/21 05:30 Temperature 37.1 C 36.6 C 36.8 C Pulse Rate 91 91 90 Respirat
[2021-01-06] MEDS: DOCUSATE SODIUM 100 MG CAPSULE PO (11:52)
[2021-01-06 14:00] VITALS: BP 135/80; PULSE 88; RESP 16; TEMP 37.1; O2SAT 99
[2021-01-06] MEDS: metroNIDAZOLE 250 MG TABLET 500 MG PO ×2 (14:14→21:21)
[2021-01-06] MEDS: IBUPROFEN 400 MG TABLET 800 MG PO ×2 (14:14→21:21)
[2021-01-06] MEDS: ACETAMINOPHEN 500 MG TABLET 1000 MG PO (17:25)
[2021-01-06 20:00] VITALS: BP 118/75; PULSE 86; RESP 20; TEMP 37.1; O2SAT 99
[2021-01-07] MEDS: ACETAMINOPHEN 500 MG TABLET 1000 MG PO ×3 (03:22→17:44)
[2021-01-07 04:00] VITALS: BP 127/82; PULSE 97; RESP 18; TEMP 36.7; O2SAT 99
[2021-01-07 05:42] LABS: Basophils Percent Auto 0.9 % (0.2-1.2); Eosinophils Absolute Auto 0.2 K/mm3 (0-0.3); Eosinophils Percent Auto 5.1 % (0-4.4); Hematocrit 26.9 % (37.0-47.0); Hemoglobin 9.1 g/dL (12.0-15.0); Immature Granulocyte Absolute 0.02 K/mm3 (0.00-0.031); Immature Granulocyte Percent A 0.6 % (0-0.5); Lymphocytes Absolute Auto 0.91 K/mm3 (0.9-3.2); Lymphocytes Percent Auto 27.4 % (18.3-44.2); Mean Corpuscular HGB Conc 33.8 g/dl (32-36); Mean Corpuscular Hemoglobin 30.3 pg (26-34); Mean Corpuscular Volume 89.7 fl (80-100); Mean Platelet Volume 8.7 fl (7.4-10.4); Monocytes Absolute Auto 0.3 K/mm3 (0.1-0.6); Neutrophils Absolute Auto 1.9 K/mm3 (1.3-6.7); Platelet Count Result 202 k/mm3 (150-375); White Blood Count 3.3 K/mm3 (4.5-10.0)
[2021-01-07 05:57] LABS: Anion Gap 4 mmol/L (8-16); Blood Urea Nitrogen 6 mg/dL (7-17); Calcium 7.8 mg/dL (8.4-10.2); Carbon Dioxide 29 mmol/L (22-30); Chloride 103 mmol/L (98-107); Estimated CRCL calculation 118 ml/min; Estimated Glomerular Filt Rate > 60; Glucose 87 mg/dL (65-105); Potassium 3.9 mmol/L (3.4-5.0); Sodium 136 mmol/L (137-145)
[2021-01-07] MEDS: metroNIDAZOLE 250 MG TABLET 500 MG PO ×3 (06:21→21:22)
[2021-01-07] MEDS: IBUPROFEN 400 MG TABLET 800 MG PO ×3 (06:21→21:22)
[2021-01-07] MEDS: ASPIRIN 81 MG ENTERIC TABLET PO (08:38)
[2021-01-07] MEDS: FERROUS SULFATE 324 MG TABLET PO (08:38)
--- NOTE | 2021-01-07 09:20 | PM.IMPN ---
Progress Note: A&P Assessment and Plan (1) Acute blood loss anemia: Code(s): D62 - Acute posthemorrhagic anemia Status: Acute Assessment and Plan: Patient presented with vaginal bleeding on Xarelto -During her stay her hgb dropped down to 6.3 and received 4 units throughout her stay so far -hemoglobin completely stable today at 9.1 -She went to the OR 01/04 for hematoma removal and washout -no plans to restart eliquis. spoke with CHIEF OF PRODUCTION and aspirin started -hematology consult reviewed, follow up with then outpt -patient was taken to the OR 01/02/21 for repair of her vaginal wall dehiscence and there was noted to be bleeding at the vaginal cuff. (2) Vaginal cuff dehiscence: Qualifiers: Encounter type: initial encounter Qualified Code(s): T81.31XA - Disruption of external operation (surgical) wound, not elsewhere classified, initial encounter Code(s): T81.31XA - Disruption of external operation (surgical) wound, not elsewhere classified, initial encounter Status: Acute Assessment and Plan: Repaired 01/02/21 -continue CHIEF OF PRODUCTION recommendations (3) Pelvic abscess: Status: Acute Assessment and Plan: Noted again on imaging -WBC normal, no fevers, pt actually feeling better -no signs of systemic infection -since it is smaller and no signs of systemic infection, no plans for drainage -Continue abx, add pro-biotic (4) Thrombosis of ovarian vein: Code(s): I82.890 - Acute embolism and thrombosis of other specified veins Status: Acute Assessment and Plan: Nearly resolved on CT, likely post op complication -no personal hx of clotting -Xarelto was started during her last stay but now she has a hematoma and vaginal bleeding so this is now stopped -Dr Carrington is going to follow up with her with imaging in 4-6 weeks (5) Hypoalbuminemia: Code(s): E88.09 - Other disorders of plasma-protein metabolism, not elsewhere classified Status: Acute Assessment and Plan: likely acute inflammatory response, improving - she runs low at times but was normal on 12/19/20 -no signs of swelling -total protein also low--nutrition? acute phase reactant? was also normal in the past.. UA neg for protein -redraw in 2 weeks after d/c (6) Leukopenia: Code(s): D72.819 - Decreased white blood cell count, unspecified Status: Acute Assessment and Plan: -Likely due to acute reaction to infx? No signs of viral infection -Plan to follow up with alesia and labs in 2 weeks Additional Plan Thank you for allowing us to participate in this patient's care. Please contact us for any additional questions, we will follow with you. Subjective Date/time seen: 01/07/21 09:20 Interval history: Pt is a 40-year-old female here for vaginal cuff dehiscence with blood loss. Patient was seen today and states that she had some cramping in the abdomen and some spotting again today. She feels most of her pain in her left lower quadrant. She is eating and drinking well without issue. She is worried about going home and having to come back again. She denies CP, SOB, fevers, chills, or edema. Exam Narrative: Exam Narrative: General:Well developed well nourished patient HEENT: Normocephalic, atraumatic, PERRL, Sclerae anicteric, oral mucosa moist. Neck: Supple Resp: CTA Heart: RRR today Abd: Soft, non distended. Some pain to palpation to the left lower quadrants. No masses felt. Positive bowel sounds. incision sites clean and dry without bleeding, discharge or dehiscence. Skin: Warm and dry Extremities: No swelling, erythema or pain to palpation Neuro: Alert and Oriented x4 . CN 2-12 intact. No focal neurological deficits. CHIEF OF PRODUCTION: deferred Objective Data Vital Signs Vital Signs: Vital Signs - 24 hr 01/06/21 14:00 01/06/21 20:00 01/07/21 04:00 Temperature 98.8 F 98.8 F 98.1 F Pulse Rate 88 86 97 Respiratory Rate 16 20 18 Blood Pressure 135/80
--- NOTE | 2021-01-07 09:40 | PM.GYNPNOP ---
CUTTING MACHINE FIXER - A/P Assessment and plan (1) Acute blood loss anemia: Code(s): D62 - Acute posthemorrhagic anemia Status: Acute Assessment and Plan: - H/H stable today - s/p 4u pRBC this admission - iron daily - POD # 3 from diagnostic laparoscopy with removal of hematoma and washout (2) Pelvic abscess: Status: Acute Assessment and Plan: - continue bactrim DS 1 tab PO BID + flagyl 500mg q8h PO - Probiotic started - afebrile, WBC stable - regular diet; SLIV - bowel regimen - pain control with scheduled tylenol 1000mg q8h + ibuprofen 800mg q8h (alternate every 4 hours) (3) Vaginal cuff dehiscence: Qualifiers: Encounter type: initial encounter Qualified Code(s): T81.31XA - Disruption of external operation (surgical) wound, not elsewhere classified, initial encounter Code(s): T81.31XA - Disruption of external operation (surgical) wound, not elsewhere classified, initial encounter Status: Acute Assessment and Plan: - POD# 5 s/p vaginal cuff closure - Mild spotting expected w/ healing - speculum exam performed today and cuff intact - likely for discharge home tomorrow; will follow up in clinic within the week (4) Hydroureteronephrosis: Code(s): N13.30 - Unspecified hydronephrosis Status: Acute Assessment and Plan: - stent placed in prior admission - will start flomax to see if that helps with discomfort (5) Thrombosis of ovarian vein: Code(s): I82.890 - Acute embolism and thrombosis of other specified veins Status: Acute Assessment and Plan: - previously on xarelto; held after active bleeding from dehiscence - continue baby aspirin daily - pt to f/u w/ heme outpatient Postoperative Procedures: Procedures Operation Date: 01/02/21 17:55 Actual Procedures Side Surgeon p REPAIR OF VAGINAL CUFF DEHISENCNCE Not Applicable Richy Doan MD Operation Date: 01/04/21 14:00 Actual Procedures Side Surgeon p Diagnostic Laparoscopy with evacuation of hematoma Susan Diaz MD Time Spent With Patient Time: Total time spent is greater than 50% in coordination of care (as documented) at patient's floor/unit and/or counseling patient: Time with patient: 15 - 25 minutes CUTTING MACHINE FIXER- PN:Subj Post-Op Subjective Date/time seen: 01/07/21 09:40 Interval history: Leslie is a 40-year-old female s/p [facility] on 12/14/20, readmitted for pelvic abscess complicated by ovarian vein thrombosis. Readmitted this admission with active vaginal bleeding and anemia due to vaginal cuff dehiscence s/p vaginal cuff closure (POD# 5). Repeat CT showed decreasing size of the pelvic abscess but new hematoma. She is now s/p diagnostic LSC with evacuation of hematoma (POD # 3). She was seen today and is doing well. Her abdominal pain is doing better with the scheduled tylenol and ibuprofen. Did have some pulling pain and was worried it could be her stitches opening up again. She has had some mild spotting. However, she is unsure if it could be the stent causing discomfort. This make her nervous to go home. She is eating and drinking regular diet. No vaginal discharge or itching. She is urinating without issue. She has had soft bowel movements. She did ambulate more yesterday and took a shower. Pt denies nausea, vomiting, fevers, chills, constipation, chest pain, sob, lightheadedness, headache or vision changes. Review of Systems Review of Systems: All systems reviewed & are unremarkable except as noted in HPI and below (HPI) Exam Const: General: cooperative, healthy appearing, comfortable and no acute distress Resp: Effort & Inspection: normal respiratory effort and able to speak in complete sentences Auscultation: clear to auscultation bilaterally Cardio: Rate: regular rate GI: Inspection: non-distended and incision (healing well; 3 new lsc insions w/ dermabond, no sx of infection/dehiscence) GI Palp: Yes abdominal tenderness (appropriate) and Yes Soft to palp
[2021-01-07] MEDS: TAMSULOSIN HCL 0.4 MG CAPSULE PO (10:45)
[2021-01-07 15:40] VITALS: BP 126/75; PULSE 85; RESP 12; TEMP 37.1; O2SAT 99
[2021-01-07] MEDS: DOCUSATE SODIUM 100 MG CAPSULE PO (21:23)
[2021-01-07 21:36] VITALS: BP 112/73; PULSE 80; RESP 16; TEMP 36.7; O2SAT 100
[2021-01-08] MEDS: ACETAMINOPHEN 500 MG TABLET 1000 MG PO ×2 (02:23→10:30)
[2021-01-08 05:41] LABS: Basophils Percent Auto 0.7 % (0.2-1.2); Eosinophils Absolute Auto 0.2 K/mm3 (0-0.3); Eosinophils Percent Auto 5.2 % (0-4.4); Hematocrit 27.3 % (37.0-47.0); Hemoglobin 9.1 g/dL (12.0-15.0); Immature Granulocyte Absolute 0.01 K/mm3 (0.00-0.031); Immature Granulocyte Percent A 0.2 % (0-0.5); Lymphocytes Absolute Auto 0.96 K/mm3 (0.9-3.2); Lymphocytes Percent Auto 23.8 % (18.3-44.2); Mean Corpuscular HGB Conc 33.3 g/dl (32-36); Mean Corpuscular Hemoglobin 29.7 pg (26-34); Mean Corpuscular Volume 89.2 fl (80-100); Mean Platelet Volume 8.6 fl (7.4-10.4); Monocytes Absolute Auto 0.3 K/mm3 (0.1-0.6); Monocytes Percent Auto 8.4 % (2.6-8.5); Neutrophils Absolute Auto 2.5 K/mm3 (1.3-6.7); Neutrophils Percent Auto 61.7 % (45.5-73.1); Platelet Count Result 205 k/mm3 (150-375); Red Blood Count 3.06 M/mm3 (4.2-5.4); Red Cell Distribution Width 14.6 % (11.5-14.5)
[2021-01-08 05:44] LABS: Alanine Aminotransferase 12 U/L (4-35); Albumin Level 2.9 g/dL (3.5-5.1); Alkaline Phosphatase 43 U/L (38-126); Anion Gap 5 mmol/L (8-16); Aspartate Amino Transferase 18 U/L (14-36); Bilirubin,Total 0.4 mg/dL (0.2-1.3); Blood Urea Nitrogen 7 mg/dL (7-17); CRP 0.9 mg/dL (<1.0); Calcium 7.9 mg/dL (8.4-10.2); Carbon Dioxide 25 mmol/L (22-30); Chloride 102 mmol/L (98-107); Estimated CRCL calculation 118 ml/min; Estimated Glomerular Filt Rate > 60; Glucose 122 mg/dL (65-105); Potassium 3.5 mmol/L (3.4-5.0); Sodium 132 mmol/L (137-145)
[2021-01-08 06:00] VITALS: BP 118/83; PULSE 82; RESP 16; TEMP 36.4; O2SAT 98
[2021-01-08] MEDS: metroNIDAZOLE 250 MG TABLET 500 MG PO (06:42)
[2021-01-08] MEDS: IBUPROFEN 400 MG TABLET 800 MG PO (06:42)
[2021-01-08] MEDS: ASPIRIN 81 MG ENTERIC TABLET PO (07:57)
[2021-01-08] MEDS: TAMSULOSIN HCL 0.4 MG CAPSULE PO (07:58)
[2021-01-08] MEDS: DOCUSATE SODIUM 100 MG CAPSULE PO (07:58)
[2021-01-08] MEDS: FERROUS SULFATE 324 MG TABLET PO (07:58)
--- NOTE | 2021-01-08 11:56 | PM.IMPN ---
Progress Note: A&P Assessment and Plan (1) Acute blood loss anemia: Code(s): D62 - Acute posthemorrhagic anemia Status: Acute Assessment and Plan: Patient presented with vaginal bleeding on Xarelto -During her stay her hgb dropped down to 6.3 and received 4 units throughout her stay so far -hemoglobin completely stable today at 9.1 -She went to the OR 01/04 for hematoma removal and washout -no plans to restart eliquis. spoke with PRISON CLASSIFICATION COUNSELOR and aspirin started -hematology consult reviewed, follow up with then outpt -patient was taken to the OR 01/02/21 for repair of her vaginal wall dehiscence and there was noted to be bleeding at the vaginal cuff. (2) Vaginal cuff dehiscence: Qualifiers: Encounter type: initial encounter Qualified Code(s): T81.31XA - Disruption of external operation (surgical) wound, not elsewhere classified, initial encounter Code(s): T81.31XA - Disruption of external operation (surgical) wound, not elsewhere classified, initial encounter Status: Acute Assessment and Plan: Repaired 01/02/21 -continue PRISON CLASSIFICATION COUNSELOR recommendations (3) Pelvic abscess: Status: Acute Assessment and Plan: Noted again on imaging -WBC normal, no fevers, pt actually feeling better -no signs of systemic infection -since it is smaller and no signs of systemic infection, no plans for drainage -Continue abx, add pro-biotic at discharge (4) Thrombosis of ovarian vein: Code(s): I82.890 - Acute embolism and thrombosis of other specified veins Status: Acute Assessment and Plan: Nearly resolved on CT, likely post op complication -no personal hx of clotting -Xarelto was started during her last stay but now she has a hematoma and vaginal bleeding so this is now stopped -Dr Carrington is going to follow up with her with imaging in 4-6 weeks (5) Hypoalbuminemia: Code(s): E88.09 - Other disorders of plasma-protein metabolism, not elsewhere classified Status: Acute Assessment and Plan: likely acute inflammatory response, improving - she runs low at times but was normal on 12/19/20 -no signs of swelling -total protein also low--nutrition? acute phase reactant? was also normal in the past.. UA neg for protein -redraw in 2 weeks after d/c (6) Leukopenia: Code(s): D72.819 - Decreased white blood cell count, unspecified Status: Acute Assessment and Plan: -Likely due to acute reaction to infx? No signs of viral infection -Plan to follow up with alesia and labs in 2 weeks Additional Plan Okay to discharge from a medical standpoint Thank you for allowing us to participate in this patient's care. Please contact us for any additional questions, we will follow with you. Subjective Date/time seen: 01/08/21 11:56 Interval history: Pt is a 40-year-old female here for vaginal cuff dehiscence with blood loss. Patient was seen today and states she is doing well today. She has no issues overnight. She still pain in her abdomen that is worse in her left lower quadrant. She is eating and drinking well without issue. She denies CP, SOB, fevers, chills, or edema. We discussed her repeats labs and follow up outpt. She has very mild spotting overnight. Exam Narrative: Exam Narrative: General:Well developed well nourished patient HEENT: Normocephalic, atraumatic, PERRL, Sclerae anicteric, oral mucosa moist. Neck: Supple Resp: CTA Heart: RRR today Abd: Soft, non distended. Pain in her abdomen diffusely. No masses felt. Positive bowel sounds. incision sites clean and dry without bleeding, discharge or dehiscence. Skin: Warm and dry Extremities: No swelling, erythema or pain to palpation Neuro: Alert and Oriented x4 . CN 2-12 intact. No focal neurological deficits. PRISON CLASSIFICATION COUNSELOR: deferred Objective Data Vital Signs Vital Signs: Vital Signs - 24 hr 01/07/21 15:40 01/07/21 21:36 01/08/21 06:00 Temperature 98.7 F 98.1 F 97.6 F Pulse Rat
--- NOTE | 2021-01-08 12:29 | PM.GYNPNOP ---
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 (1) Acute blood loss anemia: Code(s): D62 - Acute posthemorrhagic anemia Status: Acute Assessment and Plan: - H/H stable today - s/p 4u pRBC this admission - iron daily - POD # 4 from diagnostic laparoscopy with removal of hematoma and washout (2) Pelvic abscess: Status: Acute Assessment and Plan: - continue bactrim DS 1 tab PO BID + flagyl 500mg q8h PO - Probiotic started - afebrile, WBC stable - regular diet; SLIV - bowel regimen - Pain controll (3) Vaginal cuff dehiscence: Qualifiers: Encounter type: initial encounter Qualified Code(s): T81.31XA - Disruption of external operation (surgical) wound, not elsewhere classified, initial encounter Code(s): T81.31XA - Disruption of external operation (surgical) wound, not elsewhere classified, initial encounter Status: Acute Assessment and Plan: - POD# 6 s/p vaginal cuff closure - Mild spotting expected w/ healing - speculum exam performed today and cuff intact - will follow up in clinic within the week (4) Hydroureteronephrosis: Code(s): N13.30 - Unspecified hydronephrosis Status: Acute Assessment and Plan: - stent placed in prior admission (5) Thrombosis of ovarian vein: Code(s): I82.890 - Acute embolism and thrombosis of other specified veins Status: Acute Assessment and Plan: - previously on xarelto; held after active bleeding from dehiscence - continue baby aspirin daily - pt to f/u w/ heme outpatient Postoperative Procedures: Procedures Operation Date: 01/02/21 17:55 Actual Procedures Side Surgeon p REPAIR OF VAGINAL CUFF DEHISENCNCE Not Applicable Richy Doan MD Operation Date: 01/04/21 14:00 Actual Procedures Side Surgeon p Diagnostic Laparoscopy with evacuation of hematoma Susan Diaz MD Time Spent With Patient Time: Total time spent is greater than 50% in coordination of care (as documented) at patient's floor/unit and/or counseling patient: Time with patient: 15 - 25 minutes 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 She is concerned about going home, but does acknowledge that she will never feel 100% ready to go home. She is tolerating diet, voiding freely, and having BMs. She is having intermittent vaginal spotting. Pain is controlled with pain medication, but still has some tenderness with palpation. Ambulating. Interval history: 40-year-old female s/p RA[facility] on 12/14/20, readmitted for pelvic abscess complicated by ovarian vein thrombosis. Readmitted this admission with active vaginal bleeding and anemia due to vaginal cuff dehiscence s/p vaginal cuff closure (POD# 6). Repeat CT showed decreasing size of the pelvic abscess but new hematoma. She is now s/p diagnostic LSC with evacuation of hematoma (POD # 4). Exam Const: General: cooperative, healthy appearing, comfortable and no acute distress Orientation/consciousness: patient oriented x3 Resp: Effort & Inspection: normal respiratory effort, able to speak in complete sentences, normal respiratory pattern and not labored Auscultation: clear to auscultation bilaterally, no crackles, no wheezes and lung sounds not diminished Cardio: Rate: regular rate and tachycardic Rhythm: regular rhythm GI: Inspection: normal to inspection, non-distended and incision (healing well; 3 new lsc insions w/ dermabond, no sx of infection/dehiscence) Auscultation: normal bowel sounds Skin: General skin exam: normal color Neuro: General: patient oriented x3 and gait normal Extrem: General: normal to inspection Psych: Appearance: grossly normal Mental Status: mental status grossly normal Speech and movement: Normal speech and movement present Affect: normal affect Attitude: cooperative Thought process: Normal thought process present 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
--- NOTE | 2021-01-08 12:42 | PM.DS ---
DS: Admitting Diagnosis Admitting Diagnosis Admitting Diagnosis: Vaginal cuff dehiscence DS: Discharge Diagnosis Discharge Diagnosis (1) Acute blood loss anemia: Code(s): D62 - Acute posthemorrhagic anemia Status: Acute Assessment and Plan: - H/H stable today - s/p 4u pRBC this admission - iron daily - POD # 4 from diagnostic laparoscopy with removal of hematoma and washout (2) Pelvic abscess: Status: Acute Assessment and Plan: - continue bactrim DS 1 tab PO BID + flagyl 500mg q8h PO - Probiotic started - afebrile, WBC stable - regular diet - bowel regimen - Pain control (3) Vaginal cuff dehiscence: Qualifiers: Encounter type: initial encounter Qualified Code(s): T81.31XA - Disruption of external operation (surgical) wound, not elsewhere classified, initial encounter Code(s): T81.31XA - Disruption of external operation (surgical) wound, not elsewhere classified, initial encounter Status: Acute Assessment and Plan: - POD# 6 s/p vaginal cuff closure - Mild spotting expected w/ healing - speculum exam performed today and cuff intact - will follow up in clinic within the week (4) Hydroureteronephrosis: Code(s): N13.30 - Unspecified hydronephrosis Status: Acute Assessment and Plan: - stent placed in prior admission (5) Thrombosis of ovarian vein: Code(s): I82.890 - Acute embolism and thrombosis of other specified veins Status: Acute Assessment and Plan: - previously on xarelto; held after active bleeding from dehiscence - continue baby aspirin daily - pt to f/u w/ heme outpatient DS: Summary Hospital Course Hospital Course: Interval history: 40-year-old female s/p RA[facility] on 12/14/20, readmitted for pelvic abscess complicated by ovarian vein thrombosis. Readmitted this admission with active vaginal bleeding and anemia due to vaginal cuff dehiscence s/p vaginal cuff closure on 01/02/21. Repeat CT showed decreasing size of the pelvic abscess but new hematoma. She is now s/p diagnostic LSC with evacuation of hematoma on 01/04/21. In total, she received 4 units of pRBC. Her Hb stabilized 8-9. Laparoscopic evauation of hematoma and abdominal washout, patient progressed well on PO antibiotics. She will be discharged with outpatient follow up with C[facility]rentice [facility], IM, and hematology. Continue PO antibiotics. Status at Discharge Functional status at discharge: independent ambulation Overall status at discharge: patient is progressing back to baseline Time Spent with Patient Time attestation: Total time spent providing and/or coordinating discharge services: Exam Const: General: cooperative, healthy appearing, comfortable and no acute distress Orientation/consciousness: patient oriented x3 Resp: Effort & Inspection: normal respiratory effort, able to speak in complete sentences, normal respiratory pattern and not labored Auscultation: clear to auscultation bilaterally, no crackles, no wheezes and lung sounds not diminished Cardio: Rate: regular rate and tachycardic Rhythm: regular rhythm GI: Inspection: normal to inspection, non-distended and incision (healing well; 3 new lsc insions w/ dermabond, no sx of infection/dehiscence) Auscultation: normal bowel sounds Skin: General skin exam: normal color Neuro: General: patient oriented x3 and gait normal Extrem: General: normal to inspection Psych: Appearance: grossly normal Mental Status: mental status grossly normal Speech and movement: Normal speech and movement present Affect: normal affect Attitude: cooperative Thought process: Normal thought process present DS: Data Data Completed and Pending Labs on day of discharge: Labs from last 24 hours 01/08/21 01/08/21 05:08 05:08 WBC 4.0 L RBC 3.06 L Hgb 9.1 L Hct 27.3 L MCV 89.2 MCH 29.7 MCHC 33.3 RDW 14.6 H Plt Count 205 MPV 8.6 Immature Gran % (Auto) 0.2 Neut % (Auto) 61.7 Lymph % (Auto)
== END 2021-01-08 13:29 | disposition home or self-care (01) | DRG 907 ==
LOC: ANHED 17:39 → ANHSURGERY 17:50 → ANHOB2 01-03 12:13 → ANH2MED 01-05 15:50 → ANHOB2 01-10 15:45
PROVIDERS: Internal Medicine Hematology & Oncology; Obstetrics & Gynecology; Physician Assistant; Admitting Provider Obstetrics & Gynecology; Emergency Provider Emergency Medicine; PCP Obstetrics & Gynecology; Visit Provider Obstetrics & Gynecology
PROC: 0UQG7ZZ Repair Vagina, Via Natural or Artificial Opening (ICD-10-PCS; CPT 57260; principal; 2021-01-02 17:55)
PROC: 0W9G4ZZ Drainage of Peritoneal Cavity, Percutaneous Endoscopic Approach (ICD-10-PCS; CPT 49320; principal; 2021-01-04 14:00)
DX: N99.820 Postprocedural hemorrhage of a genitourinary system organ or structure following a genitourinary system procedure (principal); K66.1 Hemoperitoneum; T81.31XA Disruption of external operation (surgical) wound, not elsewhere classified, initial encounter; I82.890 Acute embolism and thrombosis of other specified veins; T81.43XA Infection following a procedure, organ and space surgical site, initial encounter; D62 Acute posthemorrhagic anemia; D68.59 Other primary thrombophilia; N13.30 Unspecified hydronephrosis; E88.09 Other disorders of plasma-protein metabolism, not elsewhere classified; N73.8 Other specified female pelvic inflammatory diseases; R55 Syncope and collapse; R31.0 Gross hematuria; E87.8 Other disorders of electrolyte and fluid balance, not elsewhere classified; D72.829 Elevated white blood cell count, unspecified; Z90.710 Acquired absence of both cervix and uterus
CPT/HCPCS: 36415; 36430; 74177; 80048; 80053; 80076; 82607; 82746; 82948; 83540; 83550; 83615; 85014; 85018; 85025; 85384; 85610; 85730; 86140; 86850; 86900; 86901; 86920; 96360; 99285; A9270; C1765; J0131; J0330; J0610; J0696; J1100; J1170; J1940; J2250; J2270; J2370; J2405; J2704; J2710; J3010; J7030; J7040; J7050; J7120; P9016; Q9967

== ENCOUNTER 2021-02-21 08:04 | Outpatient (CLI) | payer MEDICAID, SELFPAY ==
[2021-02-21 08:23] LABS: Hematocrit 36.8 % (37.0-47.0); Hemoglobin 12.4 g/dL (12.0-15.0); Mean Corpuscular HGB Conc 33.7 g/dl (32-36); Mean Corpuscular Hemoglobin 28.9 pg (26-34); Mean Corpuscular Volume 85.8 fl (80-100); Mean Platelet Volume 9.2 fl (7.4-10.4); Platelet Count Result 160 k/mm3 (150-375); Red Blood Count 4.29 M/mm3 (4.2-5.4); Red Cell Distribution Width 12.9 % (11.5-14.5); White Blood Count 4.3 K/mm3 (4.5-10.0)
== END 2021-02-21 08:05 | disposition home or self-care (01) ==
PROVIDERS: Visit Provider Obstetrics & Gynecology
DX: T81.40XA Infection following a procedure, unspecified, initial encounter (principal)
CPT/HCPCS: 36415; 85027

== ENCOUNTER 2021-04-15 11:32 | Emergency (ER) | payer OTHER, SELFPAY ==
--- NOTE | ~2021-04-15 | CT_ITS ---
EXAMINATION: CT brain wo con DATE: 04/15/2021 13:32 INDICATION: Headache. TECHNIQUE: Computed tomography (CT) of the head was performed without intravenous contrast. The mA wa s adjusted according to patient size. Iterative reconstruction technique was employed. The dose-lengt h product was 605.33 mGy-cm. COMPARISON: None FINDINGS: There is no intracranial hemorrhage, acute infarction, or abnormal intracranial mass lesion . The ventricles are normal in size. The paranasal sinuses are clear. The mastoid air cells are rob l. The orbits are normal. IMPRESSION: 1. Normal brain. Reviewed, dictated and finalized at location A. IMPRESSION: 1. Normal brain.
[2021-04-15 11:45] VITALS: BP 142/83; PULSE 77; RESP 18; TEMP 36.5; O2SAT 100
--- NOTE | 2021-04-15 12:25 | ECG_ITS ---
Measurements Intervals [place] Rate: 70 P: 36 IL: 178 QRS: -3 QRSD: 81 T: 0 QT: 404 QTc: 437 Interpretive Statements SINUS RHYTHM MINIMAL Q WAVES- HIGH LATERAL LEADS BORDERLINE T WAVE ABNORMALITY- INFERIOR LEADS BORDERLINE ECG Electronically Signed On 04-15-2021 19:46:19 CDT by Sudhakar Narayanan D.O.
--- NOTE | 2021-04-15 13:03 | ED.GENADULT ---
HPI - General Adult General Chief complaint: Recheck/Abnormal Lab/Rx Stated complaint: high blood pressure Time Seen by Provider: 04/15/21 12:11 Source: patient Mode of arrival: ambulatory Limitations: no limitations History of Present Illness HPI narrative: Patient is a 40-year-old female complaining of elevated blood pressure at home accompanied by a mild headache, 2 out of 10, frontal, nonradiating that started approximately 1 week ago. Patient states that she does not have a history of hypertension but for the past week she has been checking her blood pressure at home and its been in the 160s over 100s. Patient denies any dizziness, speech or visual disturbance, focal weakness or numbness, unsteady gait, chest pain, shortness of breath, abdominal pain, nausea, vomiting, fever or chills. Related Data Home Medications Medication Instructions Recorded Confirmed oxycodone-acetaminophen 1 tablet PO Q6-8H PRN 12/19/20 12/19/20 Allergies Allergy/AdvReac Type Severity Reaction Status Date / Time No Known Allergies Allergy Verified 04/15/21 13:16 Review of Systems Review of Systems: All systems reviewed & are unremarkable except as noted in HPI and below Constitutional: Constitutional: Denies body ache(s), Denies chills, Denies excessive sweating, Denies fatigue, Denies fever(s), Denies headache(s), Denies lethargy, Denies malaise, Denies weakness and Denies weight loss Eyes: Eyes: Denies blurry vision, Denies change in vision and Denies loss of vision ENT: Denies dizziness, Denies ear discharge, Denies headache(s), Denies lip swelling, Denies epistaxis, Denies nasal congestion, Denies neck pain, Denies throat swelling and Denies tongue swelling Cardiovascular: Cardiovascular: Denies chest pain, Denies chest pain at rest, Denies chest pain with activity, Denies diaphoresis, Denies rapid heart rate, Denies edema, Denies irregular heart rhythm, Denies lightheadedness, Denies palpitations, Denies dyspnea and Denies dyspnea on exertion Respiratory: Respiratory: Denies chest congestion, Denies cough, Denies hemoptysis, Denies dyspnea and Denies dyspnea on exertion Gastrointestinal: Gastrointestinal: Denies abdominal pain, Denies melena, Denies hematochezia, Denies diarrhea, Denies nausea, Denies vomiting and Denies hematemesis Musculoskeletal: Musculoskeletal: Denies abnormal gait, Denies deformity, Denies joint swelling, Denies limited range of motion, Denies neck pain and Denies numbness Neurologic: Denies Abnormal speech present, Denies abnormal gait, Denies confusion, Denies dizziness, Denies focal weakness, Denies loss of vision, Denies numbness, Denies Other visual disturbances, Denies Sensory deficit (Neuro) and Denies weakness Psychiatric: Psychiatric: Denies confusion, Denies depression, Denies auditory hallucinations, Denies homicidal ideation and Denies suicidal ideation Endocrine: Endocrine: Denies cold intolerance, Denies excessive sweating, Denies fatigue, Denies heat intolerance and Denies palpitations Hematologic/Lymphatic: Hematologic/Lymphatic: Denies easy bleeding and Denies easy bruising Allergic/Immunologic: Allergic/Immunologic: Denies lip swelling, Denies throat swelling and Denies tongue swelling PMFSH Past Medical History Medical History 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 She lives at home with her and 2 healthy children. She has no allergi
[2021-04-15 13:09] VITALS: BP 134/97; PULSE 73; RESP 20; O2SAT 100
[2021-04-15 14:04] LABS: Basophils Percent Auto 0.4 % (0.2-1.2); Eosinophils Percent Auto 0.6 % (0-4.4); Hematocrit 40.6 % (37.0-47.0); Hemoglobin 13.8 g/dL (12.0-15.0); Immature Granulocyte Absolute 0.02 K/mm3 (0.00-0.031); Immature Granulocyte Percent A 0.4 % (0-0.5); Lymphocytes Absolute Auto 1.63 K/mm3 (0.9-3.2); Lymphocytes Percent Auto 31.5 % (18.3-44.2); Mean Corpuscular Hemoglobin 28.5 pg (26-34); Mean Corpuscular Volume 83.9 fl (80-100); Mean Platelet Volume 9.4 fl (7.4-10.4); Monocytes Absolute Auto 0.4 K/mm3 (0.1-0.6); Monocytes Percent Auto 6.8 % (2.6-8.5); Neutrophils Absolute Auto 3.1 K/mm3 (1.3-6.7); Neutrophils Percent Auto 60.3 % (45.5-73.1); Platelet Count Result 194 k/mm3 (150-375); Red Blood Count 4.84 M/mm3 (4.2-5.4); Red Cell Distribution Width 12.3 % (11.5-14.5); White Blood Count 5.2 K/mm3 (4.5-10.0)
[2021-04-15 14:14] LABS: Anion Gap 6 mmol/L (8-16); Blood Urea Nitrogen 8 mg/dL (7-17); Calcium 9.4 mg/dL (8.4-10.2); Carbon Dioxide 28 mmol/L (22-30); Chloride 102 mmol/L (98-107); Estimated CRCL calculation 120 ml/min; Estimated Glomerular Filt Rate > 60; Glucose 89 mg/dL (65-105); Sodium 136 mmol/L (137-145)
[2021-04-15 15:09] VITALS: BP 132/96; PULSE 87; RESP 16; O2SAT 100
== END 2021-04-15 15:24 | disposition home or self-care (01) ==
PROVIDERS: Emergency Provider Emergency Medicine; PCP Family Medicine
DX: R03.0 Elevated blood-pressure reading, without diagnosis of hypertension (principal); R51.9 Headache, unspecified; R94.31 Abnormal electrocardiogram [ECG] [EKG]
CPT/HCPCS: 36415; 70450; 80048; 85025; 93005; 99284

== ENCOUNTER 2022-08-05 08:26 | Outpatient (CLI) | payer OTHER, SELFPAY ==
[2022-08-05 20:55] LABS: Alanine Aminotransferase 16 U/L (6-35); Albumin Level 4.5 g/dL (3.5-5.1); Alkaline Phosphatase 56 U/L (38-126); Anion Gap 12 mmol/L (8-16); Aspartate Amino Transferase 37 U/L (14-36); Bilirubin,Total 0.3 mg/dL (0.2-1.3); Blood Urea Nitrogen 10 mg/dL (7-17); Calcium 9.3 mg/dL (8.4-10.2); Carbon Dioxide 25 mmol/L (22-30); Chloride 100 mmol/L (98-107); Cholesterol 189 mg/dL (0-200); Estimated Glomerular Filt Rate > 60; Glucose 94 mg/dL (65-110); HDL Direct 36 mg/dL; Potassium 4.8 mmol/L (3.4-5.0); Sodium 137 mmol/L (137-145); Triglycerides 216 mg/dL (<150)
[2022-08-05 21:06] LABS: LDL Cholesterol Direct 99 mg/dL
[2022-08-05 21:20] LABS: Vitamin D 25 Hydroxy 43.7 ng/mL
== END 2022-08-05 08:27 | disposition home or self-care (01) ==
LOC: ANHASCLAB 08:28 → ANHGOSHLAB 08:44
PROVIDERS: PCP Family Medicine; Visit Provider Nurse Practitioner Family
DX: E78.5 Hyperlipidemia, unspecified (principal); E55.9 Vitamin D deficiency, unspecified; I10 Essential (primary) hypertension
CPT/HCPCS: 36415; 80053; 80061; 82306

== ENCOUNTER 2022-12-02 08:12 | Outpatient (CLI) | payer OTHER, SELFPAY ==
--- NOTE | 2022-12-03 16:10 | WPDHOMESLEEP ---
Sleep Study - Home Unattended Date of Study: 12/02/22 Ordering Provider: Darlnee Montoya NP Interpreting Provider: Brittany Benavides, DO Home Sleep Study Type: Apnea Link Air Height: 1.68 m Weight: 90.718 kg Body Mass Index: 32.3 Neck Circumference (inches): 14 Mcewen: 13 Reason for Sleep Study Unrefreshing sleep Sleep History The patient is a 42-year-old female with hypertension, anxiety and hyperlipidemia that had a sleep study ordered by her primary care for evaluation of sleep apnea. The patient denies awakening from sleep short of breath. She rarely awakens at night with heartburn, belching or cough. She occasionally snores but it is never loud enough that others complain. She frequently has trouble sleeping when she has a cold. She denies waking up gasping for air throughout the night. She denies having breathing problems at night observed by herself or others. She rarely sweats excessively at night. She occasionally has heart palpitations or irregular heartbeats during the night. She occasionally falls asleep during the day but never while driving. She occasionally experiences loss of muscle tone when extremely emotional. She occasionally has trouble at school or work due to sleepiness. She rarely feels unable to move when waking up or falling asleep. She occasionally experiences vivid dreamlike scenes upon awakening or falling asleep. She rarely feels afraid of going to sleep. She rarely has nightmares. She occasionally remembers her dreams. She occasionally has thoughts racing through her mind. She rarely feels sad or depressed. She frequently has anxiety. She frequently has muscular tension. She frequently notices parts of her body jerk. She rarely kicks during the night. She denies having crawling and aching feelings in her legs as well as leg pain during the night. She denies grinding her teeth during sleep and denies awakening with morning jaw pain. She denies being bothered by pain during the day and denies being awakened by pain during the night. She occasionally wakes up feeling stiff in the morning. She denies waking up with sore and achy muscles. She occasionally wakes up with pain in the neck, spine or other joints. She goes to bed between 10 30-11 p.m. on weekdays and between 11:00 p.m. to midnight on the weekends. It takes her 15-20 minutes to fall asleep. She wakes up 2-4 times throughout the night to urinate. She is able to fall back asleep within 20 minutes. She wakes up at 6:00 a.m. on weekdays and at 8:00 a.m. on the weekends. She typically gets 6-7 hours of sleep per night. She will stay in bed for 15-20 minutes after waking up in the morning. She currently lives with her and 3 children. She does not consume any caffeinated beverages within 2 hours of bedtime. She does not engage in physical exercise before bedtime. She will watch television before falling asleep. She will take naps in the afternoon or the evening but they are not refreshing. She drinks 1 cup of coffee per day. She drinks alcoholic beverages twice per month. She denies tobacco recreational drug use. 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
[2022-12-03 16:25] VITALS: BMI 32.3
== END 2022-12-03 13:12 | disposition home or self-care (01) ==
LOC: ANHCSM 08:14
PROVIDERS: PCP Family Medicine; Visit Provider Nurse Practitioner Family
DX: G47.10 Hypersomnia, unspecified (principal); R40.0 Somnolence
CPT/HCPCS: 95806

== ENCOUNTER → 2023-04-21 11:49 | Outpatient (CLI) | payer OTHER, SELFPAY ==
--- NOTE | ~2023-04-21 | MM_ITS ---
EXAMINATION: MM screening maral BI w jimena HISTORY: Screening TECHNIQUE: Craniocaudal and mediolateral oblique 3-D tomosynthesis images were obtained and synthetic 2-D images were generated. CAD analysis was submitted and interpreted. COMPARISON: No prior mammogram is available for comparison at this institution. BREAST PARENCHYMAL COMPOSITION: There are scattered areas of fibroglandular density. FINDINGS: There is no evidence of suspicious mass, calcification, or architectural distortion to sugg est malignancy in either breast. There has been no suspicious interval change. IMPRESSION: 1. No mammographic evidence of malignancy. 2. Recommend routine screening mammography in one year. BI-RADS Category 1: Negative Reviewed, dictated and finalized at location A.
== END ==
PROVIDERS: PCP Nurse Practitioner Family; Visit Provider Obstetrics & Gynecology
DX: Z12.31 Encounter for screening mammogram for malignant neoplasm of breast (principal)
CPT/HCPCS: 77063; 77067

== ENCOUNTER 2024-11-01 08:11 | Outpatient (CLI) | payer BC, SELFPAY ==
[2024-11-01 19:20] LABS: Basophils Absolute Auto 0.1 K/mm3 (0.0-0.1); Eosinophils Absolute Auto 0.3 K/mm3 (0-0.3); Eosinophils Percent Auto 6.2 % (0-4.4); Hematocrit 43.2 % (37.0-47.0); Hemoglobin 14.1 g/dL (12.0-15.0); Immature Granulocyte Absolute 0.01 K/mm3 (0.00-0.031); Immature Granulocyte Percent A 0.2 % (0-0.5); Lymphocytes Absolute Auto 1.76 K/mm3 (0.9-3.2); Lymphocytes Percent Auto 36.3 % (18.3-44.2); Mean Corpuscular HGB Conc 32.6 g/dl (32-36); Mean Corpuscular Hemoglobin 29.5 pg (26-34); Mean Corpuscular Volume 90.4 fl (80-100); Mean Platelet Volume 10.3 fl (7.4-10.4); Monocytes Absolute Auto 0.4 K/mm3 (0.1-0.6); Monocytes Percent Auto 7.4 % (2.6-8.5); Neutrophils Absolute Auto 2.4 K/mm3 (1.3-6.7); Neutrophils Percent Auto 48.9 % (45.5-73.1); Platelet Count Result 184 k/mm3 (150-375); Red Blood Count 4.78 M/mm3 (4.2-5.4); Red Cell Distribution Width 12.5 % (11.5-14.5); White Blood Count 4.9 K/mm3 (4.5-10.0)
[2024-11-01 20:08] LABS: Vitamin D 25 Hydroxy 33.8 ng/mL
[2024-11-01 20:16] LABS: Alanine Aminotransferase 13 U/L (6-35); Albumin Level 4.3 g/dL (3.5-5.1); Alkaline Phosphatase 96 U/L (38-126); Anion Gap 4 mmol/L (4-12); Aspartate Amino Transferase 25 U/L (14-36); Bilirubin,Total 0.4 mg/dL (0.2-1.3); Blood Urea Nitrogen 14 mg/dL (7-17); Carbon Dioxide 29 mmol/L (22-30); Chloride 104 mmol/L (98-107); Cholesterol 219 mg/dL (0-200); Estimated Glomerular Filt Rate > 60; Glucose 63 mg/dL (65-110); HDL Direct 47 mg/dL; Potassium 4.3 mmol/L (3.4-5.0); Sodium 137 mmol/L (137-145); Triglycerides 285 mg/dL (<150)
[2024-11-01 20:26] LABS: LDL Cholesterol Direct 115 mg/dL
== END 2024-11-01 08:12 | disposition home or self-care (01) ==
LOC: ANHGOSHLAB 08:12
PROVIDERS: PCP Family Medicine; Visit Provider Nurse Practitioner Family
DX: E55.9 Vitamin D deficiency, unspecified (principal); Z00.00 Encounter for general adult medical examination without abnormal findings; Z79.899 Other long term (current) drug therapy; E78.2 Mixed hyperlipidemia
CPT/HCPCS: 36415; 80053; 80061; 82306; 84443; 85025

== ENCOUNTER 2025-02-28 00:56 | Day surgery (SDC) | payer BC, SELFPAY ==
[2025-02-24 09:52] VITALS: BMI 27.8
[2025-02-28] MEDS: LACTATED RINGERS 1,000 ML 150 ML IV CONT (08:12)
[2025-02-28 08:13] VITALS: BP 139/100; PULSE 65; RESP 20; TEMP 36.1; O2SAT 100
--- NOTE | 2025-02-28 09:00 | PM.IMHP ---
H&P: [facility] History of Present Illness Date/Time: 02/28/25 09:00 Chief Complaint: Screening colonoscopy Narrative: This is the patient's first colonoscopy. There are no GI symptoms and there is no family history of colorectal cancer. 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 She lives at home with her and 2 healthy children. She has no allergies. She would like to be a full code and if she was unable to make decisions for herself she would like her , [place], to make them for her. Caffeine- coffee daily Smoking status: Never smoker Second hand tobacco smoke exposure: No Alcohol intake: current Drinks per week: 2 Alcohol use details: social 5 month Substance use: never Substance use type: does not use Lack of Transportation: No Lack of Food: Never True Current Housing: I Have Housing Concerned About Future Housing: No Difficulty Paying Gas/Electric Bills: No Difficulty Paying for Meds: No Currently Unemployed: No Education: High School Diploma/GED Difficulty w/ Childcare or Family Care: No Living arrangements: with family Additional living arrangements comments: spouse Occupation/Education: occupation 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 Gender identity (if verbalized by the patient): Female Sexual Orientation (if Verbalized by the Patient): Straight or Heterosexual Spiritual care concerns: No Agree to blood products: Yes Meds Home Medications and Allergies Home Medications ?Medication ?Instructions ?Recorded ?Confirmed ?Type semaglutide 0.25 mg or 0.5 mg (2 0.25 mg subcut WEEKLY 10/25/24 02/28/25 History mg/3 mL) subcutaneous pen injector estradiol 0.5 mg tablet 0.5 mg PO DAILY #90 tabs 01/24/25 02/28/25 Rx progesterone micronized 200 mg 200 mg PO QHS #90 caps 01/24/25 02/28/25 Rx capsule Allergies Allergy/AdvReac Type Severity Reaction Status Date / Time No Known Allergies Allergy Verified 02/28/25 08:02 Vital Signs Vital Signs - 24 hr 02/28/25 08:13 Temperature 96.9 F L Pulse Rate 65 Respiratory Rate 20 Blood Pressure 139/100 H Pulse Oximetry 100 Oxygen Delivery Room Air Exam Const: General: cooperative and healthy appearing Resp: Effort & Inspection: normal respiratory effort and able to speak in complete sentences Auscultation: clear to auscultation bilaterally Cardio: Rate: regular rate Rhythm: regular rhythm GI: Inspection: normal to inspection GI Palp: No No hepatosplenomegaly present Auscultation: normal bowel sounds Rectal Exam: deferred Skin: General skin exam: normal color Psych: Appearance: grossly normal Mental Status: mental status grossly normal Assessment and Plan Assessment and plan (1) Encounter for screening colonoscopy: Code(s): Z12.11 - Encounter for screening for malignant neoplasm of colon Status: Acute Assessment and Plan: The patient is deemed a good candidate for the procedure. Consent signed. Will proceed.
--- NOTE | 2025-02-28 09:01 | P.PNAN_ITS ---
Anes - Initial Pre Proc Eval Procedure: Operation Date: 02/28/25 09:00 Proposed Procedures p Screening Colonoscopy - Canelo Sanchez MD Date/Time: 02/28/25 09:01 Surgeon: Canelo Sanchez MD Pre Op Diagnosis: screening colon Patient Data Age: 44 Gender: F Height: 1.68 m Weight: 79.6 kg Last Vital Signs Temp 96.9 F L 02/28/25 08:13 Pulse 65 02/28/25 08:13 Resp 20 02/28/25 08:13 BP 139/100 H 02/28/25 08:13 Pulse Ox 100 02/28/25 08:13 O2 Del Method Room Air 02/28/25 08:13 Allergies Allergy/AdvReac Type Severity Reaction Status Date / Time No Known Allergies Allergy Verified 02/28/25 08:02 Home Medications ?Medication ?Instructions ?Recorded ?Confirmed ?Type semaglutide 0.25 mg or 0.5 mg (2 0.25 mg subcut WEEKLY 10/25/24 02/28/25 History mg/3 mL) subcutaneous pen injector estradiol 0.5 mg tablet 0.5 mg PO DAILY #90 tabs 01/24/25 02/28/25 Rx progesterone micronized 200 mg 200 mg PO QHS #90 caps 01/24/25 02/28/25 Rx capsule Patient hx anesthesia problems: none Family hx anesthesia problems: none Results Review: All pre-operative results and documents have been reviewed as part of the pre- operative evaluation. 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 She lives at home with her and 2 healthy children. She has no allergies. She would like to be a full code and if she was unable to make decisions for herself she would like her , Alka, to make them for her. Caffeine- coffee daily Smoking status: Never smoker Second hand tobacco smoke exposure: No Alcohol intake: current Drinks per week: 2 Alcohol use details: social 5 month Substance use: never Substance use type: does not use Lack of Transportation: No Lack of Food: Never True Current Housing: I Have Housing Concerned About Future Housing: No Difficulty Paying Gas/Electric Bills: No Difficulty Paying for Meds: No Currently Unemployed: No Education: High School Diploma/GED Difficulty w/ Childcare or Family Care: No Living arrangements: with family Additional living arrangements comments: spouse Occupation/Education: occupation 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 Gender identity (if verbalized by the patient): Female Sexual Orientation (if Verbalized by the Patient): Straight or Heterosexual Spiritual care concerns: No Agree to blood products: Yes Anes - Eval Final PreProcedure Day of Procedure 02/28/25 09:01 Patient weight: obese Heart: regular rate and rhythm Lungs: clear to auscultation Airway: Mallampati scale class II Neurological: alert and oriented Last oral intake: >/= 8 hours ASA classification: II Emergent: no Anesthetic plan: proceed Anesthesia type and monitoring: general GIVS and standard monitoring Results Review: All pre-operative results and documents have been reviewed as part of the pre- operative evaluation. Informed Consent: The patient's anesthetic plan and its attendant risks and benefits were discussed with the patient/family/POA. Questions were solicited and answers provided to the satisfaction of the patient/family/POA.
[2025-02-28 09:24] VITALS: BP 118/79; PULSE 70; RESP 20; O2SAT 99
[2025-02-28 09:34] VITALS: BP 127/82; PULSE 64; RESP 14; O2SAT 99
[2025-02-28 09:44] VITALS: BP 123/85; PULSE 62; RESP 14; O2SAT 99
== END 2025-02-28 09:59 | disposition home or self-care (01) ==
PROVIDERS: PCP Family Medicine; Referring Provider Nurse Practitioner Family; Visit Provider Internal Medicine Gastroenterology
PROC: 0DJD8ZZ Inspection of Lower Intestinal Tract, Via Natural or Artificial Opening Endoscopic (ICD-10-PCS; CPT 45378; principal; 2025-02-28 09:00)
DX: Z12.11 Encounter for screening for malignant neoplasm of colon (principal); E66.9 Obesity, unspecified; Z68.28 Body mass index [BMI] 28.0-28.9, adult
CPT/HCPCS: 45378; J2704; J7120

== ENCOUNTER 2025-03-14 13:17 | Outpatient (CLI) | payer BC, SELFPAY ==
--- NOTE | ~2025-03-14 | MM_ITS ---
EXAMINATION: MM screening maral BI w jimena HISTORY: Screening mammogram TECHNIQUE: Craniocaudal and mediolateral oblique 3-D tomosynthesis images were obtained and synthetic 2-D images were generated. CAD analysis was submitted and interpreted. COMPARISON: 04/21/2023 BREAST PARENCHYMAL COMPOSITION:Not Dense. There are scattered areas of fibroglandular density. FINDINGS: No suspicious mass, calcification, or architectural distortion are identified in either jared ast to suggest malignancy. There has been no suspicious interval change. IMPRESSION: No mammographic evidence of malignancy. Recommend routine screening mammography in one year. BI-RADS Category 1: Negative Reviewed, dictated and finalized at location .
== END 2025-03-14 13:18 | disposition home or self-care (01) ==
LOC: MICIMG 13:18
PROVIDERS: PCP Family Medicine; Visit Provider Obstetrics & Gynecology
DX: Z12.31 Encounter for screening mammogram for malignant neoplasm of breast (principal)
CPT/HCPCS: 77063; 77067